=== PATIENT | female | born 1940 | race African-American/Black ===

== ENCOUNTER 2016-08-19 01:53 | Inpatient (IN) | payer MEDICARE ==
[2016-08-19 01:53] VITALS: BMI 29.2
[2016-08-19] MEDS ORDERED: Heparin25000 units/250ml 1/2NS 25,000 UNITS/250 ML BAG IV ONE (02:05)
[2016-08-19] MEDS ORDERED: Iodixanol 320 MG/ML 200 ML BOTTLE IV ONE ×2 (02:16→02:54)
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
[2016-08-19] MEDS ORDERED: Phenylephrine 10 mg/ml Inj ONE (02:31)
[2016-08-19 02:56] LABS: BASO # 0.1 K/uL (0.0-0.2); BASO % 0.8 % (0.0-2.0); EOS # 0.3 K/uL (0.0-0.7); EOS % 1.6 % (0.0-4.0); HEMATOCRIT 31.6 % (34.0-47.0); LYMPH # 6.6 K/uL (1.0-4.3); LYMPH % 39.5 % (20.0-40.0); MEAN CELL VOLUME 82.9 fL (81.0-99.0); MEAN CORPUSCULAR HEMOGLOBIN 25.1 pg (27.0-31.0); MEAN CORPUSCULAR HGB CONC 30.3 g/dL (33.0-37.0); MEAN PLATELET VOLUME 9.2 fL (7.2-11.7); MONO # 0.5 K/uL (0.0-0.8); MONO % 3.2 % (0.0-10.0); NRBC % 0.3 % (0.0-2.0); PLATELET COUNT 141 K/uL (130-400); RED CELL DISTRIBUTION WIDTH 15.9 % (11.5-14.5); WHITE BLOOD COUNT 16.7 K/uL (4.8-10.8)
[2016-08-19 03:03] LABS: POTASSIUM 4.6 mmol/L (3.6-5.2)
[2016-08-19 03:05] LABS: ALB/GLOB RATIO 1.2 (1.0-2.1); BILIRUBIN,TOTAL 0.7 mg/dL (0.2-1.3); TOTAL PROTEIN 6.2 g/dL (6.3-8.3)
[2016-08-19 03:06] LABS: CALCIUM 7.9 mg/dl (8.6-10.4)
[2016-08-19] MEDS ORDERED: Sodium Chloride 0.9% 1,000 ML IV SCH ×2 (03:30→03:43)
--- NOTE | 2016-08-19 03:34 | CP.PCM.CON ---
History of Present Illness - History of Present Illness History of Present Illness: 76yo F. Unknown PMHx, patient was not alert upon arrival to ED. As per ED/EMS patient was in her car to day when she had sudden onset of chest pain. EMS was somehow called and patient was defibrillated in the field. In ED patient underwent a short period of CPR and defibrillation with ROSC. Taken immediately to cleaning laborer, clean coronaries, with EF of 20%, but maintaining her blood pressure. Taken to ICU to initiate hypothermia protocol. Review of Systems - Review of Systems Systems not reviewed;Unavailable: Altered Mental Status, Intubated Past Patient History - Past Social History Smoking Status: Unknown If Ever Smoked - PSYCHIATRIC Hx Substance Use: No Meds Allergies/Adverse Reactions: Allergies Allergy/AdvReac Type Severity Reaction Status Date / Time No Known Allergies Allergy Verified 07/22/14 12:52 - Medications Medications: Current Medications Heparin Sodium (Porcine) (Heparin) 5,000 units SC Q12 KELLI Heparin Sodium/Sodium Chloride (Heparin 78920 Units/250ml 1/2 Normal Saline) 25 ,000 units in 250 mls @ 10 mls/hr IV ONCE ONE Stop: 08/20/16 03:04 Last Admin: 08/19/16 02:56 Dose: 10 mls/hr Amiodarone HCl 900 mg/ (Dextrose) 500 mls @ 33.33 mls/hr IV .Q15H1M ONE; 1 MG/ MIN PRN Reason: Protocol Stop: 08/19/16 18:22 Amiodarone HCl 900 mg/ (Dextrose) 500 mls @ 16.66 mls/hr IV .Q24H ONE; 0.5 MG/ MIN PRN Reason: Protocol Stop: 08/20/16 03:23 Sodium Chloride (Sodium Chloride 0.9%) 1,000 mls @ 50 mls/hr IV .Q20H KELLI Pantoprazole Sodium (Protonix Inj) 40 mg IVP DAILY KELLI Physical Exam - Head Exam Head Exam: ATRAUMATIC, NORMAL INSPECTION, NORMOCEPHALIC - Eye Exam Pupil Exam: Fixed - ENT Exam ENT Exam: Mucous Membranes Dry - Respiratory Exam Respiratory Exam: Clear to Auscultation Bilateral, NORMAL BREATHING PATTERN - Cardiovascular Exam Cardiovascular Exam: REGULAR RHYTHM - GI/Abdominal Exam GI & Abdominal Exam: Distended, Normal Bowel Sounds, Soft. absent: Tenderness - Neurological Exam Additional comments: comatose Results - Vital Signs Recent Vital Signs: Last Vital Signs Temp 98 F 08/19/16 02:00 Pulse 88 08/19/16 02:15 Resp 14 08/19/16 02:15 BP 131/59 L 08/19/16 02:15 Pulse Ox 78 L 08/19/16 02:15 - Labs Result Diagrams: 08/19/16 02:51 08/19/16 02:51 Labs: Laboratory Results - last 24 hr 08/19/16 08/19/16 02:51 02:51 WBC 16.7 H RBC 3.81 Hgb 9.6 L Hct 31.6 L MCV 82.9 MCH 25.1 L MCHC 30.3 L RDW 15.9 H Plt Count 141 MPV 9.2 Neut % (Auto) 54.9 Lymph % (Auto) 39.5 [place] % (Auto) 3.2 Eos % (Auto) 1.6 Baso % (Auto) 0.8 Neut # 9.2 H Lymph # 6.6 H [place] # 0.5 Eos # 0.3 Baso # 0.1 Sodium 136 Potassium 4.6 Chloride 98 Carbon Dioxide 24 Anion Gap 19 BUN 24 H Creatinine 1.6 H Est GFR ( Amer) 38 Est GFR (Non-Af Amer) 31 Random Glucose 175 H Calcium 7.9 L Total Bilirubin 0.7 AST 722 H ALT 778 H Alkaline Phosphatase 76 Total Creatine Kinase 102 CK-MB (Mass) 2.04 Troponin I, Quant 0.0310 Total Protein 6.2 L Albumin 3.4 L Globulin 2.8 Albumin/Globulin Ratio 1.2 Triglycerides 139 Cholesterol 109 LDL Cholesterol Direct 55 HDL Cholesterol 28 L Assessment & Plan (1) Cardiac arrest with ventricular fibrillation Assessment and Plan: 76yo F. Unknown PMHx, p/w with v. fib cardiac arrest, s/p resuscitation with ROSC, s/p cardiac cath with clean coronaries, initiating hypothermia protocol ( 08/19). Neuro: comatose s/p cardiac arrest. Must wait at least 72 hours before doing proper any type of brain function testing. Pulm: acute respiratory failure, on vent. CV: maintaining blood pressure currently. Amiodarone drip for underlying cardiac arrhythmia, as per cardiology - Dr. Guevara. Hem: will monitor for coagulopathy with cooling. Renal: urine output wnl, will monitor for cold diuresis. Electrolyte replacement as per hypothermia protocol GI: NPO for now ID: no acute issues currently. leucocytosis stress reaction. DVT proph - heparin sq GI proph - protonix chaparro for strict I/O's during acute phase of illness Full code Critical Care Time 35 minutes Status: Acute
--- NOTE | 2016-08-19 03:40 | CP.PCM.CON ---
History of Present Illness - History of Present Illness History of Present Illness: Patient s/p Cardiac arrest (V Fib as per ER attending) Cardiac cath: 1. L Main: Patent 2. LAD/Diags: Proximal LAD 20% 3. L Cx: Patent 4. RCA: Dominant artery. Ostial RCA 50% stenosis 5. LV: EF 20%, EDP 32, No AV gradient A/P: Non Ischemic CMP with EF 20% Non Obstructive coronaries Patient intubated, unresponsive ASA 81, Amiodorone drip, DVT/GI prophylaxis Neuro/EP consult Check ECHO D/W ICU attending. Planning for Code freeze All the findings and possible outcome discussed with the family Guarded prognosis Past Patient History - Past Social History Smoking Status: Unknown If Ever Smoked - PSYCHIATRIC Hx Substance Use: No Meds Allergies/Adverse Reactions: Allergies Allergy/AdvReac Type Severity Reaction Status Date / Time No Known Allergies Allergy Verified 07/22/14 12:52 - Medications Medications: Current Medications Heparin Sodium (Porcine) (Heparin) 5,000 units SC Q12 KELLI Heparin Sodium/Sodium Chloride (Heparin 90481 Units/250ml 1/2 Normal Saline) 25 ,000 units in 250 mls @ 10 mls/hr IV ONCE ONE Stop: 08/20/16 03:04 Last Admin: 08/19/16 02:56 Dose: 10 mls/hr Amiodarone HCl 900 mg/ (Dextrose) 500 mls @ 33.33 mls/hr IV .Q15H1M ONE; 1 MG/ MIN PRN Reason: Protocol Stop: 08/19/16 18:22 Amiodarone HCl 900 mg/ (Dextrose) 500 mls @ 16.66 mls/hr IV .Q24H ONE; 0.5 MG/ MIN PRN Reason: Protocol Stop: 08/20/16 03:23 Sodium Chloride (Sodium Chloride 0.9%) 1,000 mls @ 50 mls/hr IV .Q20H KELLI Insulin Human Regular (Novolin R) 0 unit SC ACHS KELLI PRN Reason: Protocol Pantoprazole Sodium (Protonix Inj) 40 mg IVP DAILY [facility] Results - Vital Signs Recent Vital Signs: Last Vital Signs Temp 98 F 08/19/16 02:00 Pulse 88 08/19/16 02:15 Resp 14 08/19/16 02:15 BP 131/59 L 08/19/16 02:15 Pulse Ox 78 L 08/19/16 02:15 - Labs Result Diagrams: 08/19/16 02:51 08/19/16 02:51 Labs: Laboratory Results - last 24 hr 08/19/16 08/19/16 02:51 02:51 WBC 16.7 H RBC 3.81 Hgb 9.6 L Hct 31.6 L MCV 82.9 MCH 25.1 L MCHC 30.3 L RDW 15.9 H Plt Count 141 MPV 9.2 Neut % (Auto) 54.9 Lymph % (Auto) 39.5 [place] % (Auto) 3.2 Eos % (Auto) 1.6 Baso % (Auto) 0.8 Neut # 9.2 H Lymph # 6.6 H [place] # 0.5 Eos # 0.3 Baso # 0.1 Sodium 136 Potassium 4.6 Chloride 98 Carbon Dioxide 24 Anion Gap 19 BUN 24 H Creatinine 1.6 H Est GFR ( Amer) 38 Est GFR (Non-Af Amer) 31 Random Glucose 175 H Calcium 7.9 L Total Bilirubin 0.7 AST 722 H ALT 778 H Alkaline Phosphatase 76 Total Creatine Kinase 102 CK-MB (Mass) 2.04 Troponin I, Quant 0.0310 Total Protein 6.2 L Albumin 3.4 L Globulin 2.8 Albumin/Globulin Ratio 1.2 Triglycerides 139 Cholesterol 109 LDL Cholesterol Direct 55 HDL Cholesterol 28 L
[2016-08-19 04:09] LABS: ABG ALLEN TEST POS; ABG MECHANICAL RATE 14; ATERIAL BLOOD GAS PEEP 5; DRAW SITE RR
[2016-08-19] MEDS: Sodium Chloride 0.9% 1,000 ML IV SCH ×2 (04:17→17:40)
[2016-08-19] MEDS: (Novolog) Insulin Aspart, Recombinant 100 u/ml 10 ml vial SC SCH ×3 (04:23→13:14)
[2016-08-19 04:39] LABS: BASO % 0.1 % (0.0-2.0); EOS # 0.1 K/uL (0.0-0.7); EOS % 0.9 % (0.0-4.0); HEMATOCRIT 31.7 % (34.0-47.0); LYMPH # 2.5 K/uL (1.0-4.3); LYMPH % 15.2 % (20.0-40.0); MEAN CELL VOLUME 82.3 fL (81.0-99.0); MEAN CORPUSCULAR HEMOGLOBIN 25.3 pg (27.0-31.0); MEAN CORPUSCULAR HGB CONC 30.7 g/dL (33.0-37.0); MEAN PLATELET VOLUME 9.1 fL (7.2-11.7); MONO # 0.2 K/uL (0.0-0.8); MONO % 1.1 % (0.0-10.0); NRBC % 0.1 % (0.0-2.0); WHITE BLOOD COUNT 16.3 K/uL (4.8-10.8)
[2016-08-19 04:48] LABS: POTASSIUM 4.8 mmol/L (3.6-5.2)
[2016-08-19 04:50] LABS: BILIRUBIN,TOTAL 0.5 mg/dL (0.2-1.3)
[2016-08-19 04:51] LABS: ALB/GLOB RATIO 1.1 (1.0-2.1); TOTAL PROTEIN 6.2 g/dL (6.3-8.3)
[2016-08-19 04:52] LABS: MAGNESIUM 1.7 mg/dL (1.6-2.3); PHOSPHOROUS 6.8 mg/dL (2.5-4.5)
[2016-08-19 05:02] LABS: INR 1.1
[2016-08-19 05:08] LABS: TROPONIN I 0.124 ng/mL (0.00-0.120)
[2016-08-19 05:24] LABS: THYROID STIMULATING HORMONE 9.62 mIU/L (0.46-4.68)
[2016-08-19 05:31] LABS: BASOPHIL 2 % (0-2); EOSINOPHIL 4 % (0-4); METAMYELOCYTE 5 % (0-0); MYELOCYTE 6 % (0-0); NEUTROPHIL 13 % (50-75); REACTIVE LYMPHOCYTES 11 % (0-0); TOTAL CELLS COUNTED 100
--- NOTE | 2016-08-19 05:39 | CT ---
EXAM: CT Head Without Intravenous Contrast CLINICAL HISTORY: 76 years old, female; Signs and symptoms; Other: Post cardiac; Additional info: Post cardiac arrest code heart code freeze to star TECHNIQUE: Axial computed tomography images of the head/brain without intravenous contrast. This CT exam was performed using one or more of the following dose reduction techniques: automated exposure control, adjustment of the mA and/or kV according to patient size, and/or use of iterative reconstruction technique. EXAM DATE/TIME: 08/19/2016 4:16 AM COMPARISON: No relevant prior studies available. FINDINGS: LIMITATIONS: Retained IV contrast material seen in the intracranial vessels and dural venous sinuses, presumably from a recent study done with IV contrast, such as a cardiac catheterization. This limits evaluation for acute intracranial hemorrhage. BRAIN: Best seen on image 44 of series 4, there is a 3.5 cm wedged-shaped area of low density in the left parietal lobe, involving the cortex and subcortical white matter. This does not appear to be associated with significant intracranial mass effect or hypervascularity, and it has a density mildly higher than the nearby normal CSF spaces. The appearance is most suggestive of a subacute to chronic infarct. Focal areas of low density are seen in the basal ganglia bilaterally, most compatible with bilateral old/chronic lacunar infarcts. Areas of hypodensity seen in the white matter bilaterally, nonspecific in appearance, but most likely representing chronic small vessel ischemic changes, in a patient of this age. No CT findings to suggest an acute, large territorial infarct, however, small or early acute infarcts may not be visible on CT. No evidence of significant intracranial mass effect. VENTRICLES: No evidence of significant hydrocephalus. BONES/JOINTS: No acute fractures or other acute bony abnormality noted. SOFT TISSUES: No acute abnormality of the visualized soft tissues is seen. VASCULATURE: Atherosclerotic calcification. SINUSES: Small fluid level in a right ethmoid sinus, compatible with mild acute sinusitis. No evidence of additional sinus fluid levels. MASTOID AIR CELLS: Mastoid air cells appear clear. TUBES, LINES AND DEVICES: Tube seen in the pharynx. Fluid seen throughout the nasal cavity, which is most likely related to recent tube placement. IMPRESSION: - Limited exam for acute intracranial hemorrhage, due to retained intracranial IV contrast. - Focal hypodense area in the left parietal lobe. This has an appearance suggestive of a small infarct, most likely subacute to chronic rather than acute in nature. Recommend clinical correlation. - See above for remaining findings.
--- NOTE | 2016-08-19 06:53 | CP.PCM.CON ---
Past Patient History - Past Medical History & Family History Past Medical History?: Yes - Past Social History Smoking Status: Unknown If Ever Smoked - CARDIAC Hx Cardia Arrhythmia: Yes Hx Hypercholesterolemia: Yes Hx Hypertension: Yes - NEUROLOGICAL HX Cerebrovascular Accident: Yes - INTEGUMENTARY Hx Haley: Yes - MUSCULOSKELETAL/RHEUMATOLOGICAL Hx Falls: No - GASTROINTESTINAL Hx Gall Bladder Disease: Yes (removed) - PSYCHIATRIC Hx Substance Use: No - SURGICAL HISTORY Other/Comment: bowel obstruction removal - ANESTHESIA Hx Anesthesia: Yes Hx Anesthesia Reactions: No Hx Malignant Hyperthermia: No Has any member of the family had a problem w/ anesthesia?: No Meds Allergies/Adverse Reactions: Allergies Allergy/AdvReac Type Severity Reaction Status Date / Time No Known Allergies Allergy Verified 07/22/14 12:52 - Medications Medications: Current Medications Heparin Sodium (Porcine) (Heparin) 5,000 units SC Q12 KELLI Amiodarone HCl 900 mg/ (Dextrose) 500 mls @ 33.33 mls/hr IV .Q15H1M KELLI; 1 MG/ MIN PRN Reason: Protocol Stop: 08/19/16 09:30 Last Admin: 08/19/16 04:25 Dose: 33.33 mls/hr Amiodarone HCl 900 mg/ (Dextrose) 500 mls @ 16.66 mls/hr IV .Q24H KELLI; 0.5 MG/ MIN PRN Reason: Protocol Stop: 08/20/16 03:30 Sodium Chloride (Sodium Chloride 0.9%) 1,000 mls @ 100 mls/hr IV .Q10H KELLI Last Admin: 08/19/16 04:17 Dose: 100 mls/hr Insulin Aspart (Novolog) 0 unit SC Q6 KELLI PRN Reason: Protocol Last Admin: 08/19/16 04:23 Dose: 2 unit Insulin Human Regular (Novolin R) 0 unit SC ACHS KELLI PRN Reason: Protocol Pantoprazole Sodium (Protonix Inj) 40 mg IVP DAILY KELLI Results - Vital Signs Recent Vital Signs: Last Vital Signs Temp 98 F 08/19/16 02:00 Pulse 58 L 08/19/16 04:25 Resp 14 08/19/16 04:25 BP 140/56 L 08/19/16 04:25 Pulse Ox 100 08/19/16 04:25 - Labs Result Diagrams: 08/19/16 04:35 08/19/16 04:35 Labs: Laboratory Results - last 24 hr 08/19/16 08/19/16 08/19/16 02:51 02:51 03:54 WBC 16.7 H RBC 3.81 Hgb 9.6 L Hct 31.6 L MCV 82.9 MCH 25.1 L MCHC 30.3 L RDW 15.9 H Plt Count 141 MPV 9.2 Neut % (Auto) 54.9 Lymph % (Auto) 39.5 [place] % (Auto) 3.2 Eos % (Auto) 1.6 Baso % (Auto) 0.8 Neut # 9.2 H Lymph # 6.6 H [place] # 0.5 Eos # 0.3 Baso # 0.1 Neutrophils % (Manual) 13 L Band Neutrophils % 29 H* Lymphocytes % (Manual) 26 Reactive Lymphs % 11 H Monocytes % (Manual) 4 Eosinophils % (Manual) 4 Basophils % (Manual) 2 Metamyelocytes % 5 H Myelocytes % 6 H Platelet Estimate Normal PT INR APTT Puncture Site Rr pCO2 46 H pO2 445 H HCO3 26.7 ABG pH 7.39 ABG Total CO2 29.2 H ABG O2 Saturation 99.8 H ABG Base Excess 2.2 Dima Test Pos ABG Potassium 4.8 A-a O2 Difference 211.0 Respiratory Index 0.5 Glucose 223 H Lactate 2.9 H Mechanical Rate 14 FiO2 100.0 Tidal Volume 400 PEEP 5 Sodium 136 134.0 Potassium 4.6 Chloride 98 102.0 Carbon Dioxide 24 Anion Gap 19 BUN 24 H Creatinine 1.6 H Est GFR ( Amer) 38 Est GFR (Non-Af Amer) 31 POC Glucose (mg/dL) Random Glucose 175 H Lactic Acid Calcium 7.9 L Phosphorus Magnesium Total Bilirubin 0.7 AST 722 H ALT 778 H Alkaline Phosphatase 76 Total Creatine Kinase 102 CK-MB (Mass) 2.04 Troponin I Troponin I, Quant 0.0310 Total Protein 6.2 L Albumin 3.4 L Globulin 2.8 Albumin/Globulin Ratio 1.2 Triglycerides 139 Cholesterol 109 LDL Cholesterol Direct 55 HDL Cholesterol 28 L TSH 3rd Generation Arterial Blood Potassium 4.8 Blood Type Antibody Screen 08/19/16 08/19/16 08/19/16 04:21 04:35 04:35 WBC RBC Hgb Hct MCV MCH MCHC RDW Plt Count MPV Neut % (Auto) Lymph % (Auto) [place] % (Auto) Eos % (Auto) Baso % (Auto) Neut # Lymph # [place] # Eos # Baso # Neutrophils % (Manual) Band Neutrophils % Lymphocytes % (Manual) Reactive Lymphs % Monocytes % (Manual) Eosinophils % (Manual) Basophils % (Manual) Metamyelocytes % Myelocytes % Platelet Estimate PT 12.5 H INR 1.1 APTT 133 H* Puncture Site pCO2 pO2 HCO3 ABG pH ABG Total CO2 ABG O2 Saturation ABG Base Excess Dima Test ABG Potassium A-a O2 Difference Respiratory Index Glucose Lactate Mechanical Rate FiO2 Tidal Volume PEEP Sodium 135 Potassium 4.8 Chloride 96 L Carbon Dioxide 25 Anion Gap 19 BUN 27 H Creatinine 1.7 H Est GFR ( Amer) 35 Est GFR (Non-Af Amer) 29 POC Glucose (mg/dL) 218 H Random Glucose 186 H Lactic Acid Calcium 8.0 L Phosphorus Magnesium Total Bilirubin 0.5 AST 693 H ALT 813 H Alkaline Phosphatase 82 Total Creatine Kinase CK-MB (Mass) Troponin I 0.1240 H* Troponin I, Quant Total Protein 6.2 L Albumin 3.2 L Globulin 3.0 Albumin/Globulin Ratio 1.1 Triglycerides 74 D Cholesterol 107 LDL Cholesterol Direct 58 HDL Cholesterol 31 TSH 3rd Generation 9.62 H Arterial Blood Potassium Blood Type Antibody Screen 08/19/16 08/19/16 08/19/16 04:35 04:35 04:35 WBC 16.3 H RBC 3.85 Hgb 9.7 L Hct 31.7 L MCV 82.3 MCH 25.3 L MCHC 30.7 L RDW 16.0 H Plt Count 178 MPV 9.1 Neut % (Auto) 82.7 H Lymph % (Auto) 15.2 L [place] % (Auto) 1.1 Eos % (Auto) 0.9 Baso % (Auto) 0.1 Neut # 13.5 H Lymph # 2.5 [place] # 0.2 Eos # 0.1 Baso # 0.0 Neutrophils % (Manual) Band Neutrophils % Lymphocytes % (Manual) Reactive Lymphs % Monocytes % (Manual) Eosinophils % (Manual) Basophils % (Manual) Metamyelocytes % Myelocytes % Platelet Estimate PT INR APTT Puncture Site pCO2 pO2 HCO3 ABG pH ABG Total CO2 ABG O2 Saturation ABG Base Excess Dima Test ABG Potassium A-a O2 Difference Respiratory Index Glucose Lactate Mechanical Rate FiO2 Tidal Volume PEEP Sodium Potassium Chloride Carbon Dioxide Anion Gap BUN Creatinine Est GFR ( Amer) Est GFR (Non-Af Amer) POC Glucose (mg/dL) Random Glucose Lactic Acid 4.5 H* Calcium Phosphorus 6.8 H Magnesium 1.7 Total Bilirubin AST ALT Alkaline Phosphatase Total Creatine Kinase CK-MB (Mass) Troponin I Troponin I, Quant Total Protein Albumin Globulin Albumin/Globulin Ratio Triglycerides Cholesterol LDL Cholesterol Direct HDL Cholesterol TSH 3rd Generation Arterial Blood Potassium Blood Type Antibody Screen 08/19/16 08/19/16 04:46 06:25 WBC RBC Hgb Hct MCV MCH MCHC RDW Plt Count MPV Neut % (Auto) Lymph % (Auto) [place] % (Auto) Eos % (Auto) Baso % (Auto) Neut # Lymph # [place] # Eos # Baso # Neutrophils % (Manual) Band Neutrophils % Lymphocytes % (Manual) Reactive Lymphs % Monocytes % (Manual) Eosinophils % (Manual) Basophils % (Manual) Metamyelocytes % Myelocytes % Platelet Estimate PT INR APTT Puncture Site pCO2 pO2 HCO3 ABG pH ABG Total CO2 ABG O2 Saturation ABG Base Excess Dima Test ABG Potassium A-a O2 Difference Respiratory Index Glucose Lactate Mechanical Rate FiO2 Tidal Volume PEEP Sodium Potassium Chloride Carbon Dioxide Anion Gap BUN Creatinine Est GFR ( Amer) Est GFR (Non-Af Amer) POC Glucose (mg/dL) 247 H Random Glucose Lactic Acid Calcium Phosphorus Magnesium Total Bilirubin AST ALT Alkaline Phosphatase Total Creatine Kinase CK-MB (Mass) Troponin I Troponin I, Quant Total Protein Albumin Globulin Albumin/Globulin Ratio Triglycerides Cholesterol LDL Cholesterol Direct HDL Cholesterol TSH 3rd Generation Arterial Blood Potassium Blood Type B NEGATIVE Antibody Screen Negative
[2016-08-19] MEDS ORDERED: (Novolin R) Insulin Human Regular 100 units/ml vial SC SCH (07:30)
--- NOTE | 2016-08-19 08:08 | CP.CCUPN ---
CCU Subjective - Physician Review Subjective (Free Text): 08/19/16 14:55 events noted. remains unresponsive. unable to carry out therapeutic hypothermia due to persistent hemorrhage (mouth/nose). involuntary lip smacking and other EPS. Afeb VSS Gen: unresponsive HEENT: SHIRLEY. ETT/NGT Neck: Supple CVS: RRR s1, s2 Resp; rhonchi b/l Abd: soft, nt/nd, bs+ve ext: no edema neuro: unable to assess fully but no response elicited to verbal or noxious stimulus Meds/labs/imaging reviewed independently as noted below. Assessment & Plan (1) Cardiac arrest with ventricular fibrillation Assessment and Plan: 76yo F. Unknown PMHx, p/w with v. fib cardiac arrest, s/p resuscitation with ROSC, s/p cardiac cath with clean coronaries, initiating hypothermia protocol ( 08/19). Neuro: comatose s/p cardiac arrest. hope to regain some neuro function; if not , will discuss the poor prognosis with family. Pulm: cont vent support; follow abg/cxr CV: maintaining blood pressure currently. Amiodarone drip for underlying cardiac arrhythmia, as per cardiology - Dr. Nichols; eventual AICD if pt recovers Hem: transfuse PRBC/Plt etc PRN. Hold SQH Renal: urine output wnl, GI: NPO for now ID: no acute issues currently. leucocytosis stress reaction. DVT proph -SCDs GI proph - protonix chaparro for strict I/O's during acute phase of illness Full code prognosis poor Ulysses Pabon MD CCU Objective - Vital Signs / Intake & Output Vital Signs (Last 4 hours): Vital Signs Pulse Resp BP Pulse Ox 08/19/16 07:20 57 L 14 100 08/19/16 07:10 57 L 13 100 08/19/16 07:00 56 L 14 100 08/19/16 06:50 55 L 14 100 08/19/16 06:40 59 L 14 100 08/19/16 06:30 59 L 14 152/69 H 100 08/19/16 06:20 55 L 14 100 08/19/16 06:10 56 L 14 100 08/19/16 06:00 56 L 14 100 08/19/16 05:50 56 L 14 100 08/19/16 05:40 57 L 14 100 08/19/16 05:30 56 L 14 147/70 100 08/19/16 05:20 56 L 14 100 08/19/16 05:10 56 L 13 147/72 100 08/19/16 05:04 62 20 08/19/16 04:30 59 L 14 100 08/19/16 04:25 58 L 14 140/56 L 100 08/19/16 04:20 60 11 L 100 08/19/16 04:10 59 L 14 100 Intake and Output (Last 8hrs): Intake & Output 08/18/16 08/19/16 08/19/16 22:59 06:59 14:59 Intake Total 200 100 Output Total 35 10 Balance 165 90 Weight 149 lb 14.629 oz Intake: Intake, IV Amount 200 100 Left Antecubital 200 100 Oral 0 0 Output: Urine 35 10 Urethral (Chaparro) 35 10 Emesis 0 Other: Voiding Method Indwelling Catheter # Bowel Movements 0 - Medications Active Medications: Active Medications Generic Name Dose Route Start Last Admin Trade Name Freq PRN Reason Stop Dose Admin Heparin Sodium (Porcine) 5,000 units 08/19/16 10:00 Heparin SC Q12 KELLI Amiodarone HCl 900 mg/ 500 mls @ 33.33 mls/hr 08/19/16 03:30 08/19/16 04:25 Dextrose IV 08/19/16 09:30 33.33 mls/hr .Q15H1M KELLI Administration Protocol 1 MG/MIN Amiodarone HCl 900 mg/ 500 mls @ 16.66 mls/hr 08/19/16 09:30 Dextrose IV 08/20/16 03:30 .Q24H KELLI Protocol 0.5 MG/MIN Sodium Chloride 1,000 mls @ 100 mls/hr 08/19/16 03:53 08/19/16 04:17 Sodium Chloride 0.9% IV 100 mls/hr .Q10H KELLI Administration Insulin Aspart 0 unit 08/19/16 03:45 08/19/16 06:00 Novolog SC 2 unit Q6 KELLI Administration Protocol Insulin Human Regular 0 unit 08/19/16 07:30 08/19/16 07:57 Novolin R SC Not Given ACHS KELLI Protocol Pantoprazole Sodium 40 mg 08/19/16 10:00 Protonix Inj IVP DAILY KELLI - Patient Studies Lab Studies: Lab Studies 08/19/16 08/19/1608/19/17 Range/Units 06:25 04:46 04:35 WBC (4.8-10.8) K/uL RBC (3.80-5.20) Mil/uL Hgb (11.0-16.0) g/dL Hct (34.0-47.0) % MCV (81.0-99.0) fL MCH (27.0-31.0) pg MCHC (33.0-37.0) g/dL RDW (11.5-14.5) % Plt Count (130-400) K/uL MPV (7.2-11.7) fL Neut % (Auto) (50.0-75.0) % Lymph % (Auto) (20.0-40.0) % Travis % (Auto) (0.0-10.0) % Eos % (Auto) (0.0-4.0) % Baso % (Auto) (0.0-2.0) % Neut # (1.8-7.0) K/uL Lymph # (1.0-4.3) K/uL Travis # (0.0-0.8) K/uL Eos # (0.0-0.7) K/uL Baso # (0.0-0.2) K/uL Neutrophils % (Manual) (50-75) % Band Neutrophils % (0-2) % Lymphocytes % (Manual) (20-40) % Reactive Lymphs % (0-0) % Monocytes % (Manual) (0-10) % Eosinophils % (Manual) (0-4) % Basophils % (Manual) (0-2) % Metamyelocytes % (0-0) % Myelocytes % (0-0) % Platelet Estimate (NORMAL) PT (9.7-12.2) SECONDS INR APTT (21-34) SECONDS Puncture Site pCO2 (35-45) mm/Hg pO2 (80-100) mm/Hg HCO3 (21-28) mmol/L ABG pH (7.35-7.45) ABG Total CO2 (22-28) mmol/L ABG O2 Saturation (95-98) % ABG Base Excess (-2.0-3.0) mmol/L Dima Test ABG Potassium (3.6-5.2) mmol/L A-a O2 Difference mm/Hg Respiratory Index Glucose (65-105) mg/dl Lactate (0.7-2.1) mmol/L Mechanical Rate FiO2 % Tidal Volume PEEP Sodium (132-148) mmol/L Potassium (3.6-5.2) mmol/L Chloride (98-107) mmol/L Carbon Dioxide (22-30) mmol/L Anion Gap (10-20) BUN (7-17) mg/dL Creatinine (0.7-1.2) MG/DL Est GFR ( Amer) Est GFR (Non-Af Amer) POC Glucose (mg/dL) 247 H (65-110) mg/dL Random Glucose (65-105) mg/dL Lactic Acid 4.5 H* (0.7-2.1) mmol/L Calcium (8.6-10.4) mg/dl Phosphorus (2.5-4.5) mg/dL Magnesium (1.6-2.3) mg/dL Total Bilirubin (0.2-1.3) mg/dL AST (14-36) U/L ALT (9-52) U/L Alkaline Phosphatase (38-126) U/L Total Creatine Kinase (30-135) U/L CK-MB (Mass) (0.0-3.38) ng/mL Troponin I (0.00-0.120) ng/mL Troponin I, Quant (0.00-0.120) ng/mL Total Protein (6.3-8.3) g/dL Albumin (3.5-5.0) g/dL Globulin (2.2-3.9) gm/dL Albumin/Globulin Ratio (1.0-2.1) Triglycerides (0-149) mg/dL Cholesterol (0-199) mg/dL LDL Cholesterol Direct (0-129) mg/dL HDL Cholesterol (30-70) mg/dL TSH 3rd Generation (0.46-4.68) mIU/L Arterial Blood Potassium (3.6-5.2) mmol/L Blood Type B NEGATIVE Antibody Screen Negative 08/19/16 08/19/16 08/19/16 Range/Units 04:35 04:35 04:35 WBC 16.3 H (4.8-10.8) K/uL RBC 3.85 (3.80-5.20) Mil/uL Hgb 9.7 L (11.0-16.0) g/dL Hct 31.7 L (34.0-47.0) % MCV 82.3 (81.0-99.0) fL MCH 25.3 L (27.0-31.0) pg MCHC 30.7 L (33.0-37.0) g/dL RDW 16.0 H (11.5-14.5) % Plt Count 178 (130-400) K/uL MPV 9.1 (7.2-11.7) fL Neut % (Auto) 82.7 H (50.0-75.0) % Lymph % (Auto) 15.2 L (20.0-40.0) % Travis % (Auto) 1.1 (0.0-10.0) % Eos % (Auto) 0.9 (0.0-4.0) % Baso % (Auto) 0.1 (0.0-2.0) % Neut # 13.5 H (1.8-7.0) K/uL Lymph # 2.5 (1.0-4.3) K/uL Travis # 0.2 (0.0-0.8) K/uL Eos # 0.1 (0.0-0.7) K/uL Baso # 0.0 (0.0-0.2) K/uL Neutrophils % (Manual) (50-75) % Band Neutrophils % (0-2) % Lymphocytes % (Manual) (20-40) % Reactive Lymphs % (0-0) % Monocytes % (Manual) (0-10) % Eosinophils % (Manual) (0-4) % Basophils % (Manual) (0-2) % Metamyelocytes % (0-0) % Myelocytes % (0-0) % Platelet Estimate (NORMAL) PT (9.7-12.2) SECONDS INR APTT (21-34) SECONDS Puncture Site pCO2 (35-45) mm/Hg pO2 (80-100) mm/Hg HCO3 (21-28) mmol/L ABG pH (7.35-7.45) ABG Total CO2 (22-28) mmol/L ABG O2 Saturation (95-98) % ABG Base Excess (-2.0-3.0) mmol/L Dima Test ABG Potassium (3.6-5.2) mmol/L A-a O2 Difference mm/Hg Respiratory Index Glucose (65-105) mg/dl Lactate (0.7-2.1) mmol/L Mechanical Rate FiO2 % Tidal Volume PEEP Sodium 135 (132-148) mmol/L Potassium 4.8 (3.6-5.2) mmol/L Chloride 96 L (98-107) mmol/L Carbon Dioxide 25 (22-30) mmol/L Anion Gap 19 (10-20) BUN 27 H (7-17) mg/dL Creatinine 1.7 H (0.7-1.2) MG/DL Est GFR ( Amer) 35 Est GFR (Non-Af Amer) 29 POC Glucose (mg/dL) (65-110) mg/dL Random Glucose 186 H (65-105) mg/dL Lactic Acid (0.7-2.1) mmol/L Calcium 8.0 L (8.6-10.4) mg/dl Phosphorus 6.8 H (2.5-4.5) mg/dL Magnesium 1.7 (1.6-2.3) mg/dL Total Bilirubin 0.5 (0.2-1.3) mg/dL AST 693 H (14-36) U/L ALT 813 H (9-52) U/L Alkaline Phosphatase 82 (38-126) U/L Total Creatine Kinase (30-135) U/L CK-MB (Mass) (0.0-3.38) ng/mL Troponin I 0.1240 H* (0.00-0.120) ng/mL Troponin I, Quant (0.00-0.120) ng/mL Total Protein 6.2 L (6.3-8.3) g/dL Albumin 3.2 L (3.5-5.0) g/dL Globulin 3.0 (2.2-3.9) gm/dL Albumin/Globulin Ratio 1.1 (1.0-2.1) Triglycerides 74 D (0-149) mg/dL Cholesterol 107 (0-199) mg/dL LDL Cholesterol Direct 58 (0-129) mg/dL HDL Cholesterol 31 (30-70) mg/dL TSH 3rd Generation 9.62 H (0.46-4.68) mIU/L Arterial Blood Potassium (3.6-5.2) mmol/L Blood Type Antibody Screen 08/19/16 08/19/16 08/19/16 Range/Units 04:35 04:21 03:54 WBC (4.8-10.8) K/uL RBC (3.80-5.20) Mil/uL Hgb (11.0-16.0) g/dL Hct (34.0-47.0) % MCV (81.0-99.0) fL MCH (27.0-31.0) pg MCHC (33.0-37.0) g/dL RDW (11.5-14.5) % Plt Count (130-400) K/uL MPV (7.2-11.7) fL Neut % (Auto) (50.0-75.0) % Lymph % (Auto) (20.0-40.0) % Travis % (Auto) (0.0-10.0) % Eos % (Auto) (0.0-4.0) % Baso % (Auto) (0.0-2.0) % Neut # (1.8-7.0) K/uL Lymph # (1.0-4.3) K/uL Travis # (0.0-0.8) K/uL Eos # (0.0-0.7) K/uL Baso # (0.0-0.2) K/uL Neutrophils % (Manual) (50-75) % Band Neutrophils % (0-2) % Lymphocytes % (Manual) (20-40) % Reactive Lymphs % (0-0) % Monocytes % (Manual) (0-10) % Eosinophils % (Manual) (0-4) % Basophils % (Manual) (0-2) % Metamyelocytes % (0-0) % Myelocytes % (0-0) % Platelet Estimate (NORMAL) PT 12.5 H (9.7-12.2) SECONDS INR 1.1 APTT 133 H* (21-34) SECONDS Puncture Site Rr pCO2 46 H (35-45) mm/Hg pO2 445 H (80-100) mm/Hg HCO3 26.7 (21-28) mmol/L ABG pH 7.39 (7.35-7.45) ABG Total CO2 29.2 H (22-28) mmol/L ABG O2 Saturation 99.8 H (95-98) % ABG Base Excess 2.2 (-2.0-3.0) mmol/L Dima Test Pos ABG Potassium 4.8 (3.6-5.2) mmol/L A-a O2 Difference 211.0 mm/Hg Respiratory Index 0.5 Glucose 223 H (65-105) mg/dl Lactate 2.9 H (0.7-2.1) mmol/L Mechanical Rate 14 FiO2 100.0 % Tidal Volume 400 PEEP 5 Sodium 134.0 (132-148) mmol/L Potassium (3.6-5.2) mmol/L Chloride 102.0 (98-107) mmol/L Carbon Dioxide (22-30) mmol/L Anion Gap (10-20) BUN (7-17) mg/dL Creatinine (0.7-1.2) MG/DL Est GFR ( Amer) Est GFR (Non-Af Amer) POC Glucose (mg/dL) 218 H (65-110) mg/dL Random Glucose (65-105) mg/dL Lactic Acid (0.7-2.1) mmol/L Calcium (8.6-10.4) mg/dl Phosphorus (2.5-4.5) mg/dL Magnesium (1.6-2.3) mg/dL Total Bilirubin (0.2-1.3) mg/dL AST (14-36) U/L ALT (9-52) U/L Alkaline Phosphatase (38-126) U/L Total Creatine Kinase (30-135) U/L CK-MB (Mass) (0.0-3.38) ng/mL Troponin I (0.00-0.120) ng/mL Troponin I, Quant (0.00-0.120) ng/mL Total Protein (6.3-8.3) g/dL Albumin (3.5-5.0) g/dL Globulin (2.2-3.9) gm/dL Albumin/Globulin Ratio (1.0-2.1) Triglycerides (0-149) mg/dL Cholesterol (0-199) mg/dL LDL Cholesterol Direct (0-129) mg/dL HDL Cholesterol (30-70) mg/dL TSH 3rd Generation (0.46-4.68) mIU/L Arterial Blood Potassium 4.8 (3.6-5.2) mmol/L Blood Type Antibody Screen 08/19/16 08/19/16 Range/Units 02:51 02:51 WBC 16.7 H (4.8-10.8) K/uL RBC 3.81 (3.80-5.20) Mil/uL Hgb 9.6 L (11.0-16.0) g/dL Hct 31.6 L (34.0-47.0) % MCV 82.9 (81.0-99.0) fL MCH 25.1 L (27.0-31.0) pg MCHC 30.3 L (33.0-37.0) g/dL RDW 15.9 H (11.5-14.5) % Plt Count 141 (130-400) K/uL MPV 9.2 (7.2-11.7) fL Neut % (Auto) 54.9 (50.0-75.0) % Lymph % (Auto) 39.5 (20.0-40.0) % Travis % (Auto) 3.2 (0.0-10.0) % Eos % (Auto) 1.6 (0.0-4.0) % Baso % (Auto) 0.8 (0.0-2.0) % Neut # 9.2 H (1.8-7.0) K/uL Lymph # 6.6 H (1.0-4.3) K/uL Travis # 0.5 (0.0-0.8) K/uL Eos # 0.3 (0.0-0.7) K/uL Baso # 0.1 (0.0-0.2) K/uL Neutrophils % (Manual) 13 L (50-75) % Band Neutrophils % 29 H* (0-2) % Lymphocytes % (Manual) 26 (20-40) % Reactive Lymphs % 11 H (0-0) % Monocytes % (Manual) 4 (0-10) % Eosinophils % (Manual) 4 (0-4) % Basophils % (Manual) 2 (0-2) % Metamyelocytes % 5 H (0-0) % Myelocytes % 6 H (0-0) % Platelet Estimate Normal (NORMAL) PT (9.7-12.2) SECONDS INR APTT (21-34) SECONDS Puncture Site pCO2 (35-45) mm/Hg pO2 (80-100) mm/Hg HCO3 (21-28) mmol/L ABG pH (7.35-7.45) ABG Total CO2 (22-28) mmol/L ABG O2 Saturation (95-98) % ABG Base Excess (-2.0-3.0) mmol/L Dima Test ABG Potassium (3.6-5.2) mmol/L A-a O2 Difference mm/Hg Respiratory Index Glucose (65-105) mg/dl Lactate (0.7-2.1) mmol/L Mechanical Rate FiO2 % Tidal Volume PEEP Sodium 136 (132-148) mmol/L Potassium 4.6 (3.6-5.2) mmol/L Chloride 98 (98-107) mmol/L Carbon Dioxide 24 (22-30) mmol/L Anion Gap 19 (10-20) BUN 24 H (7-17) mg/dL Creatinine 1.6 H (0.7-1.2) MG/DL Est GFR ( Amer) 38 Est GFR (Non-Af Amer) 31 POC Glucose (mg/dL) (65-110) mg/dL Random Glucose 175 H (65-105) mg/dL Lactic Acid (0.7-2.1) mmol/L Calcium 7.9 L (8.6-10.4) mg/dl Phosphorus (2.5-4.5) mg/dL Magnesium (1.6-2.3) mg/dL Total Bilirubin 0.7 (0.2-1.3) mg/dL AST 722 H (14-36) U/L ALT 778 H (9-52) U/L Alkaline Phosphatase 76 (38-126) U/L Total Creatine Kinase 102 (30-135) U/L CK-MB (Mass) 2.04 (0.0-3.38) ng/mL Troponin I (0.00-0.120) ng/mL Troponin I, Quant 0.0310 (0.00-0.120) ng/mL Total Protein 6.2 L (6.3-8.3) g/dL Albumin 3.4 L (3.5-5.0) g/dL Globulin 2.8 (2.2-3.9) gm/dL Albumin/Globulin Ratio 1.2 (1.0-2.1) Triglycerides 139 (0-149) mg/dL Cholesterol 109 (0-199) mg/dL LDL Cholesterol Direct 55 (0-129) mg/dL HDL Cholesterol 28 L (30-70) mg/dL TSH 3rd Generation (0.46-4.68) mIU/L Arterial Blood Potassium (3.6-5.2) mmol/L Blood Type Antibody Screen Laboratory Results - last 24 hr 08/19/16 08/19/16 08/19/16 02:51 02:51 03:54 WBC 16.7 H RBC 3.81 Hgb 9.6 L Hct 31.6 L MCV 82.9 MCH 25.1 L MCHC 30.3 L RDW 15.9 H Plt Count 141 MPV 9.2 Neut % (Auto) 54.9 Lymph % (Auto) 39.5 Travis % (Auto) 3.2 Eos % (Auto) 1.6 Baso % (Auto) 0.8 Neut # 9.2 H Lymph # 6.6 H Travis # 0.5 Eos # 0.3 Baso # 0.1 Neutrophils % (Manual) 13 L Band Neutrophils % 29 H* Lymphocytes % (Manual) 26 Reactive Lymphs % 11 H Monocytes % (Manual) 4 Eosinophils % (Manual) 4 Basophils % (Manual) 2 Metamyelocytes % 5 H Myelocytes % 6 H Platelet Estimate Normal PT INR APTT Puncture Site Rr pCO2 46 H pO2 445 H HCO3 26.7 ABG pH 7.39 ABG Total CO2 29.2 H ABG O2 Saturation 99.8 H ABG Base Excess 2.2 Dima Test Pos ABG Potassium 4.8 A-a O2 Difference 211.0 Respiratory Index 0.5 Glucose 223 H Lactate 2.9 H Mechanical Rate 14 FiO2 100.0 Tidal Volume 400 PEEP 5 Sodium 136 134.0 Potassium 4.6 Chloride 98 102.0 Carbon Dioxide 24 Anion Gap 19 BUN 24 H Creatinine 1.6 H Est GFR ( Amer) 38 Est GFR (Non-Af Amer) 31 POC Glucose (mg/dL) Random Glucose 175 H Lactic Acid Calcium 7.9 L Phosphorus Magnesium Total Bilirubin 0.7 AST 722 H ALT 778 H Alkaline Phosphatase 76 Total Creatine Kinase 102 CK-MB (Mass) 2.04 Troponin I Troponin I, Quant 0.0310 Total Protein 6.2 L Albumin 3.4 L Globulin 2.8 Albumin/Globulin Ratio 1.2 Triglycerides 139 Cholesterol 109 LDL Cholesterol Direct 55 HDL Cholesterol 28 L TSH 3rd Generation Arterial Blood Potassium 4.8 Blood Type Antibody Screen 08/19/16 08/19/16 08/19/16 04:21 04:35 04:35 WBC RBC Hgb Hct MCV MCH MCHC RDW Plt Count MPV Neut % (Auto) Lymph % (Auto) Travis % (Auto) Eos % (Auto) Baso % (Auto) Neut # Lymph # Travis # Eos # Baso # Neutrophils % (Manual) Band Neutrophils % Lymphocytes % (Manual) Reactive Lymphs % Monocytes % (Manual) Eosinophils % (Manual) Basophils % (Manual) Metamyelocytes % Myelocytes % Platelet Estimate PT 12.5 H INR 1.1 APTT 133 H* Puncture Site pCO2 pO2 HCO3 ABG pH ABG Total CO2 ABG O2 Saturation ABG Base Excess Dima Test ABG Potassium A-a O2 Difference Respiratory Index Glucose Lactate Mechanical Rate FiO2 Tidal Volume PEEP Sodium 135 Potassium 4.8 Chloride 96 L Carbon Dioxide 25 Anion Gap 19 BUN 27 H Creatinine 1.7 H Est GFR ( Amer) 35 Est GFR (Non-Af Amer) 29 POC Glucose (mg/dL) 218 H Random Glucose 186 H Lactic Acid Calcium 8.0 L Phosphorus Magnesium Total Bilirubin 0.5 AST 693 H ALT 813 H Alkaline Phosphatase 82 Total Creatine Kinase CK-MB (Mass) Troponin I 0.1240 H* Troponin I, Quant Total Protein 6.2 L Albumin 3.2 L Globulin 3.0 Albumin/Globulin Ratio 1.1 Triglycerides 74 D Cholesterol 107 LDL Cholesterol Direct 58 HDL Cholesterol 31 TSH 3rd Generation 9.62 H Arterial Blood Potassium Blood Type Antibody Screen 08/19/16 08/19/16 08/19/16 04:35 04:35 04:35 WBC 16.3 H RBC 3.85 Hgb 9.7 L Hct 31.7 L MCV 82.3 MCH 25.3 L MCHC 30.7 L RDW 16.0 H Plt Count 178 MPV 9.1 Neut % (Auto) 82.7 H Lymph % (Auto) 15.2 L Travis % (Auto) 1.1 Eos % (Auto) 0.9 Baso % (Auto) 0.1 Neut # 13.5 H Lymph # 2.5 Travis # 0.2 Eos # 0.1 Baso # 0.0 Neutrophils % (Manual) Band Neutrophils % Lymphocytes % (Manual) Reactive Lymphs % Monocytes % (Manual) Eosinophils % (Manual) Basophils % (Manual) Metamyelocytes % Myelocytes % Platelet Estimate PT INR APTT Puncture Site pCO2 pO2 HCO3 ABG pH ABG Total CO2 ABG O2 Saturation ABG Base Excess Dima Test ABG Potassium A-a O2 Difference Respiratory Index Glucose Lactate Mechanical Rate FiO2 Tidal Volume PEEP Sodium Potassium Chloride Carbon Dioxide Anion Gap BUN Creatinine Est GFR ( Amer) Est GFR (Non-Af Amer) POC Glucose (mg/dL) Random Glucose Lactic Acid 4.5 H* Calcium Phosphorus 6.8 H Magnesium 1.7 Total Bilirubin AST ALT Alkaline Phosphatase Total Creatine Kinase CK-MB (Mass) Troponin I Troponin I, Quant Total Protein Albumin Globulin Albumin/Globulin Ratio Triglycerides Cholesterol LDL Cholesterol Direct HDL Cholesterol TSH 3rd Generation Arterial Blood Potassium Blood Type Antibody Screen 08/19/16 08/19/16 04:46 06:25 WBC RBC Hgb Hct MCV MCH MCHC RDW Plt Count MPV Neut % (Auto) Lymph % (Auto) Travis % (Auto) Eos % (Auto) Baso % (Auto) Neut # Lymph # Travis # Eos # Baso # Neutrophils % (Manual) Band Neutrophils % Lymphocytes % (Manual) Reactive Lymphs % Monocytes % (Manual) Eosinophils % (Manual) Basophils % (Manual) Metamyelocytes % Myelocytes % Platelet Estimate PT INR APTT Puncture Site pCO2 pO2 HCO3 ABG pH ABG Total CO2 ABG O2 Saturation ABG Base Excess Dima Test ABG Potassium A-a O2 Difference Respiratory Index Glucose Lactate Mechanical Rate FiO2 Tidal Volume PEEP Sodium Potassium Chloride Carbon Dioxide Anion Gap BUN Creatinine Est GFR ( Amer) Est GFR (Non-Af Amer) POC Glucose (mg/dL) 247 H Random Glucose Lactic Acid Calcium Phosphorus Magnesium Total Bilirubin AST ALT Alkaline Phosphatase Total Creatine Kinase CK-MB (Mass) Troponin I Troponin I, Quant Total Protein Albumin Globulin Albumin/Globulin Ratio Triglycerides Cholesterol LDL Cholesterol Direct HDL Cholesterol TSH 3rd Generation Arterial Blood Potassium Blood Type B NEGATIVE Antibody Screen Negative EKG/Cardiology Studies: Cardiology / EKG Studies 08/19/16 05:00 EKG [ELECTROCARDIOGRAM] Routine Comment: Mode Of Transportation: Reason For Exam: cardiac arrest Fingerstick Blood Sugar Results: 154 Review of Systems - Review of Systems Systems not reviewed;Unavailable: Acuity of Condition
--- NOTE | 2016-08-19 08:41 | RAD ---
HISTORY: Endotracheal tube placement. Supine portable examination 04:54. COMPARISON: No prior. FINDINGS: LUNGS: No active pulmonary disease. PLEURA: No significant pleural effusion identified, no pneumothorax apparent. CARDIOVASCULAR: No radiographic findings to suggest acute or significant cardiovascular disease. OSSEOUS STRUCTURES: No significant abnormalities. VISUALIZED UPPER ABDOMEN: Normal. OTHER FINDINGS: Support apparatus including nasogastric tube coiled in the stomach and endotracheal tube tip 4 cm above the dacia in good position. IMPRESSION: No active disease. Satisfactory position of support apparatus.
--- NOTE | 2016-08-19 08:53 | RAD ---
PROCEDURE: CHEST RADIOGRAPH, 1 VIEW. Semi erect study 02:22. HISTORY: chest pain COMPARISON: None available. FINDINGS: LUNGS: No active pulmonary disease. PLEURA: No pneumothorax or pleural fluid seen. CARDIOVASCULAR: No radiographic findings to suggest acute or significant cardiovascular disease. OSSEOUS STRUCTURES: No significant abnormalities. VISUALIZED UPPER ABDOMEN: Normal. OTHER FINDINGS: Incomplete visualization of the nasogastric tube although it appears to be in the stomach. Low lying endotracheal tube in the right mainstem bronchus. Please note subsequent radiographs confirm repositioning, the tip on the follow-up study was approximately 4 cm above the dacia. IMPRESSION: Low lying endotracheal tube subsequently repositioned. Concordant results with the preliminary interpretation rendered by the emergency department physician procedure.
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
--- NOTE | 2016-08-19 10:43 | CARDCATH ---
PROCEDURE DATE: 08/19/2016 PROCEDURES: 1. Left heart catheterization. 2. Coronary angiogram. CLINICAL INDICATIONS: 1. Cardiac arrest. 2. Hypertension. 3. Respiratory failure, on mechanical ventilation. REFERRING PHYSICIAN: Nick Jacobson MD. PERFORMING PHYSICIAN: Fredi Guevara MD. BRIEF CLINICAL HISTORY: The patient is a 76-year-old female who presented to [facility] Room for cardiac arrest, status post resuscitation. The patient was intubated, unresponsive. Due to cardiac arrest, code heart was activated. Procedure is an emergency, as the family is not available at the time of presentation. Consents were obtained by 2 physicians - one including Dr. Jackson; the second one is from [place]. The patient rec eived aspirin, Brilinta, and IV heparin in the Emergency Room and brought to analytical lab technician for emergency c ardiac catheterization. The patient was prepped and draped in the usual sterile fashion. 2% lidocaine was given in the right groin for local anesthesia. Using micropuncture technique, 6-[place] sheath was introduced into [facility] t common femoral artery. Using the usual diagnostic catheters, left heart catheterization was perfor med. FINDINGS: 1. Left main coronary artery is patent. 2. Proximal LAD has a 30% stenosis. Mid and distal LAD is patent. Diagonal branches are patent. 3. Left circumflex coronary artery is patent. 4. Right coronary artery is dominant. Ostial right coronary artery has a 50% nonobstructive stenosi s. Mid and distal right coronary artery is patent. 5. LV is dilated. Estimated EF is 20%. Global hypokinesis. LVEDP is 35. CONCLUSION: 1. The patient is status post cardiac arrest. 2. Nonobstructive coronaries. 3. Nonischemic cardiomyopathy with EF of 20%. The patient will be transferred to intensive care unit for further management. Fredi Guevara MD cc: [id number] TT: 08/19/2016 10:42:52 jn
[2016-08-19] MEDS: levETIRAcetam 500 MG in Sodium Chloride 0.9% 100 ML IVPB SCH (13:15)
[2016-08-19] MEDS: Metoprolol 1 mg/ml Inj IVP SCH ×2 (14:03→17:41)
[2016-08-19] MEDS ORDERED: Metoprolol 1 mg/ml Inj IVP ONE (16:44)
[2016-08-20] MEDS: (Novolog) Insulin Aspart, Recombinant 100 u/ml 10 ml vial SC SCH ×4 (00:50→18:25)
[2016-08-20] MEDS: levETIRAcetam 500 MG in Sodium Chloride 0.9% 100 ML IVPB SCH ×2 (01:15→14:05)
[2016-08-20 05:42] LABS: ABG ALLEN TEST POS; ABG MECHANICAL RATE 14; ARTERIAL BLOOD HGB O2 SAT 96.3 % (95.0-98.0); ATERIAL BLOOD GAS PEEP 5; CARBOXYHEMOGLOBIN 1.2 % (0.5-1.5); DRAW SITE RR; HHB 0.8 % (0.0-5.0); METHEMOGLOBIN 1.7 % (0.0-3.0)
[2016-08-20] MEDS: Metoprolol 1 mg/ml Inj IVP SCH ×2 (06:28)
[2016-08-20 06:42] LABS: POTASSIUM 3.4 mmol/L (3.6-5.2)
[2016-08-20 06:44] LABS: BILIRUBIN,TOTAL 0.9 mg/dL (0.2-1.3)
[2016-08-20 06:45] LABS: ALB/GLOB RATIO 1.1 (1.0-2.1); CALCIUM 7.8 mg/dl (8.6-10.4); PHOSPHOROUS 3.7 mg/dL (2.5-4.5); TOTAL PROTEIN 6.8 g/dL (6.3-8.3)
[2016-08-20 06:46] LABS: MAGNESIUM 1.4 mg/dL (1.6-2.3)
[2016-08-20 06:50] LABS: BASO % 0.1 % (0.0-2.0); HEMATOCRIT 36.4 % (34.0-47.0); LYMPH # 1.9 K/uL (1.0-4.3); LYMPH % 10.2 % (20.0-40.0); MEAN CELL VOLUME 80.6 fL (81.0-99.0); MEAN CORPUSCULAR HEMOGLOBIN 25.1 pg (27.0-31.0); MEAN CORPUSCULAR HGB CONC 31.2 g/dL (33.0-37.0); MEAN PLATELET VOLUME 9.6 fL (7.2-11.7); MONO # 1.4 K/uL (0.0-0.8); MONO % 7.8 % (0.0-10.0); NRBC % 0.1 % (0.0-2.0); RED CELL DISTRIBUTION WIDTH 15.4 % (11.5-14.5); WHITE BLOOD COUNT 18.5 K/uL (4.8-10.8)
[2016-08-20] MEDS ORDERED: Potassium Chloride 20 mEq/15 ml LIQ UD PO ONE (07:21)
--- NOTE | 2016-08-20 07:33 | CP.CCUPN ---
CCU Subjective - Physician Review Subjective (Free Text): no events overnight. in sinus rhythm. eyes open but otherwise non responsive on vent. Afeb VSS Gen: non responsive. HEENT: SHIRLEY. ETT/OGT Neck: Supple CVS: RRR s1, s2 Resp; rhonchi b/l Abd: soft, nt/nd, bs+ve ext: no edema neuro: open eyes spontaneously. no motor response elicited to verbal or noxious stimulus. flaccid tone. Meds/labs/imaging reviewed independently as noted below. Assessment and Plan: 76yo F. Unknown PMHx, p/w with v. fib cardiac arrest, s/p resuscitation with ROSC, s/p cardiac cath with clean coronaries, initiating hypothermia protocol ( 08/19). Neuro: spontaneous arousal but rpt head ct with evidence of anoxic encephalopathy. await neuro input. Goals of care discussion with family. will involved hospice / palliative care. Pulm: cont vent support; follow abg/cxr CV: maintaining blood pressure currently. Amiodarone drip for underlying cardiac arrhythmia, as per cardiology - Dr. Nichols; eventual AICD if pt recovers Hem: Resume SQH Renal: urine output wnl, GI: Start TF. GI PPX ID: no acute issues currently. leucocytosis stress reaction. DVT proph -SCDs + HSQ GI proph - protonix chaparro for strict I/O's during acute phase of illness Full code prognosis poor given current exam and CTH findings. Ulysses Pabon MD CC time spent 40 min 08/20/16 13:55 CCU Objective - Vital Signs / Intake & Output Vital Signs (Last 4 hours): Vital Signs Pulse Resp BP Pulse Ox 08/20/16 06:50 99 H 20 100 08/20/16 06:40 100 H 19 100 08/20/16 06:30 99 H 17 143/70 100 08/20/16 06:20 98 H 19 100 08/20/16 06:10 99 H 17 100 08/20/16 06:00 99 H 15 100 08/20/16 05:50 101 H 15 99 08/20/16 05:40 99 H 19 100 08/20/16 05:30 100 H 16 149/72 100 08/20/16 05:20 99 H 14 100 08/20/16 05:10 100 H 19 100 05/29/17 05:00 100 H 19 100 08/20/16 04:50 99 H 15 100 08/20/16 04:40 99 H 14 100 08/20/16 04:30 100 H 18 149/73 100 08/20/16 04:20 99 H 21 100 08/20/16 04:10 99 H 16 100 08/20/16 04:00 99 H 17 100 08/20/16 03:50 100 H 17 100 08/20/16 03:40 99 H 15 100 Intake and Output (Last 8hrs): Intake & Output 08/19/16 08/20/16 08/20/16 22:59 06:59 14:59 Intake Total 1233.6 900.2 Output Total 545 500 Balance 688.6 400.2 Weight 152 lb Intake: Intake, IV Amount 1233.6 900.2 Left Antecubital 800 800 rt leg IO 300 y lined to antecubital 133.6 100.2 Oral 0 0 Output: Urine 545 500 Urethral (Chaparro) 545 500 Other: # Bowel Movements 0 0 - Medications Active Medications: Active Medications Generic Name Dose Route Start Last Admin Trade Name Freq PRN Reason Stop Dose Admin Sodium Chloride 1,000 mls @ 100 mls/hr 08/19/16 03:53 08/20/16 00:00 Sodium Chloride 0.9% IV Not Given .Q10H KELLI Levetiracetam 500 mg/ Sodium 105 mls @ 420 mls/hr 08/19/16 13:00 08/20/16 01: 15 Chloride IVPB 420 mls/hr Q12H KELLI Administration Potassium Chloride 20 meq in 100 mls @ 50 mls/hr 08/20/16 07:21 Potassium Chloride 20 Meq/100 Ml IVPB 08/20/16 09:20 ONCE ONE Magnesium Sulfate/Dextrose 1 gm in 100 mls @ 100 mls/hr 08/20/16 08:00 Magnesium Sulfate 1 Gm/100 Ml D5w IVPB 08/20/16 09:59 Q1H KELLI Insulin Aspart 0 unit 08/19/16 03:45 08/20/16 05:29 Novolog SC Not Given Q6 KELLI Protocol Metoprolol Tartrate 5 mg 08/19/16 13:35 08/20/16 06:28 Lopressor IVP 5 mg Q6 KELLI Administration Pantoprazole Sodium 40 mg 08/19/16 10:00 08/19/16 13:14 Protonix Inj IVP 40 mg DAILY KELLI Administration Potassium Chloride 40 meq 08/20/16 07:21 Potassium Chloride Oral Soln PO 08/20/16 07:22 ONCE ONE - Patient Studies Lab Studies: Lab Studies 08/20/16 08/20/16 08/20/16 Range/Units 06:25 06:25 05:34 WBC 18.5 H (4.8-10.8) K/uL RBC 4.52 (3.80-5.20) Mil/uL Hgb 11.3 (11.0-16.0) g/dL Hct 36.4 (34.0-47.0) % MCV 80.6 L (81.0-99.0) fL MCH 25.1 L (27.0-31.0) pg MCHC 31.2 L (33.0-37.0) g/dL RDW 15.4 H (11.5-14.5) % Plt Count 179 (130-400) K/uL MPV 9.6 (7.2-11.7) fL Neut % (Auto) 81.9 H (50.0-75.0) % Lymph % (Auto) 10.2 L (20.0-40.0) % [place] % (Auto) 7.8 (0.0-10.0) % Eos % (Auto) 0.0 (0.0-4.0) % Baso % (Auto) 0.1 (0.0-2.0) % Neut # 15.1 H (1.8-7.0) K/uL Lymph # 1.9 (1.0-4.3) K/uL [place] # 1.4 H (0.0-0.8) K/uL Eos # 0.0 (0.0-0.7) K/uL Baso # 0.0 (0.0-0.2) K/uL Puncture Site Rr pCO2 39 (35-45) mm/Hg pO2 154 H (80-100) mm/Hg HCO3 26.1 (21-28) mmol/L ABG pH 7.43 (7.35-7.45) ABG Total CO2 27.1 (22-28) mmol/L ABG O2 Saturation 99.2 H (95-98) % ABG Base Excess 1.5 (-2.0-3.0) mmol/L ABG Hemoglobin 11.2 L (11.7-17.4) g/dL ABG Carboxyhemoglobin 1.2 (0.5-1.5) % POC ABG HHb (Measured) 0.8 (0.0-5.0) % ABG Methemoglobin 1.7 (0.0-3.0) % Dima Test Pos A-a O2 Difference 225.0 mm/Hg Respiratory Index 1.5 Hgb O2 Saturation 96.3 (95.0-98.0) % Mechanical Rate 14 FiO2 60.0 % Tidal Volume 400 PEEP 5 Sodium 136 (132-148) mmol/L Potassium 3.4 L (3.6-5.2) mmol/L Chloride 100 (98-107) mmol/L Carbon Dioxide 23 (22-30) mmol/L Anion Gap 16 (10-20) BUN 36 H (7-17) mg/dL Creatinine 2.1 H (0.7-1.2) MG/DL Est GFR ( Amer) 28 Est GFR (Non-Af Amer) 23 POC Glucose (mg/dL) (65-110) mg/dL Random Glucose 132 H (65-105) mg/dL Calcium 7.8 L (8.6-10.4) mg/dl Phosphorus 3.7 (2.5-4.5) mg/dL Magnesium 1.4 L (1.6-2.3) mg/dL Total Bilirubin 0.9 (0.2-1.3) mg/dL AST 427 H D (14-36) U/L ALT 550 H D (9-52) U/L Alkaline Phosphatase 65 (38-126) U/L Ammonia (9-33) umol/L Total Protein 6.8 (6.3-8.3) g/dL Albumin 3.6 (3.5-5.0) g/dL Globulin 3.2 (2.2-3.9) gm/dL Albumin/Globulin Ratio 1.1 (1.0-2.1) 08/20/16 08/19/16 08/19/16 Range/Units 05:20 18:11 14:09 WBC (4.8-10.8) K/uL RBC (3.80-5.20) Mil/uL Hgb (11.0-16.0) g/dL Hct (34.0-47.0) % MCV (81.0-99.0) fL MCH (27.0-31.0) pg MCHC (33.0-37.0) g/dL RDW (11.5-14.5) % Plt Count (130-400) K/uL MPV (7.2-11.7) fL Neut % (Auto) (50.0-75.0) % Lymph % (Auto) (20.0-40.0) % [place] % (Auto) (0.0-10.0) % Eos % (Auto) (0.0-4.0) % Baso % (Auto) (0.0-2.0) % Neut # (1.8-7.0) K/uL Lymph # (1.0-4.3) K/uL [place] # (0.0-0.8) K/uL Eos # (0.0-0.7) K/uL Baso # (0.0-0.2) K/uL Puncture Site pCO2 (35-45) mm/Hg pO2 (80-100) mm/Hg HCO3 (21-28) mmol/L ABG pH (7.35-7.45) ABG Total CO2 (22-28) mmol/L ABG O2 Saturation (95-98) % ABG Base Excess (-2.0-3.0) mmol/L ABG Hemoglobin (11.7-17.4) g/dL ABG Carboxyhemoglobin (0.5-1.5) % POC ABG HHb (Measured) (0.0-5.0) % ABG Methemoglobin (0.0-3.0) % Dima Test A-a O2 Difference mm/Hg Respiratory Index Hgb O2 Saturation (95.0-98.0) % Mechanical Rate FiO2 % Tidal Volume PEEP Sodium (132-148) mmol/L Potassium (3.6-5.2) mmol/L Chloride (98-107) mmol/L Carbon Dioxide (22-30) mmol/L Anion Gap (10-20) BUN (7-17) mg/dL Creatinine (0.7-1.2) MG/DL Est GFR ( Amer) Est GFR (Non-Af Amer) POC Glucose (mg/dL) 139 H 174 H (65-110) mg/dL Random Glucose (65-105) mg/dL Calcium (8.6-10.4) mg/dl Phosphorus (2.5-4.5) mg/dL Magnesium (1.6-2.3) mg/dL Total Bilirubin (0.2-1.3) mg/dL AST (14-36) U/L ALT (9-52) U/L Alkaline Phosphatase (38-126) U/L Ammonia 10 (9-33) umol/L Total Protein (6.3-8.3) g/dL Albumin (3.5-5.0) g/dL Globulin (2.2-3.9) gm/dL Albumin/Globulin Ratio (1.0-2.1) // Range/Units 12:36 WBC (4.8-10.8) K/uL RBC (3.80-5.20) Mil/uL Hgb (11.0-16.0) g/dL Hct (34.0-47.0) % MCV (81.0-99.0) fL MCH (27.0-31.0) pg MCHC (33.0-37.0) g/dL RDW (11.5-14.5) % Plt Count (130-400) K/uL MPV (7.2-11.7) fL Neut % (Auto) (50.0-75.0) % Lymph % (Auto) (20.0-40.0) % [place] % (Auto) (0.0-10.0) % Eos % (Auto) (0.0-4.0) % Baso % (Auto) (0.0-2.0) % Neut # (1.8-7.0) K/uL Lymph # (1.0-4.3) K/uL [place] # (0.0-0.8) K/uL Eos # (0.0-0.7) K/uL Baso # (0.0-0.2) K/uL Puncture Site pCO2 (35-45) mm/Hg pO2 (80-100) mm/Hg HCO3 (21-28) mmol/L ABG pH (7.35-7.45) ABG Total CO2 (22-28) mmol/L ABG O2 Saturation (95-98) % ABG Base Excess (-2.0-3.0) mmol/L ABG Hemoglobin (11.7-17.4) g/dL ABG Carboxyhemoglobin (0.5-1.5) % POC ABG HHb (Measured) (0.0-5.0) % ABG Methemoglobin (0.0-3.0) % Dima Test A-a O2 Difference mm/Hg Respiratory Index Hgb O2 Saturation (95.0-98.0) % Mechanical Rate FiO2 % Tidal Volume PEEP Sodium (132-148) mmol/L Potassium (3.6-5.2) mmol/L Chloride (98-107) mmol/L Carbon Dioxide (22-30) mmol/L Anion Gap (10-20) BUN (7-17) mg/dL Creatinine (0.7-1.2) MG/DL Est GFR ( Amer) Est GFR (Non-Af Amer) POC Glucose (mg/dL) 215 H (65-110) mg/dL Random Glucose (65-105) mg/dL Calcium (8.6-10.4) mg/dl Phosphorus (2.5-4.5) mg/dL Magnesium (1.6-2.3) mg/dL Total Bilirubin (0.2-1.3) mg/dL AST (14-36) U/L ALT (9-52) U/L Alkaline Phosphatase (38-126) U/L Ammonia (9-33) umol/L Total Protein (6.3-8.3) g/dL Albumin (3.5-5.0) g/dL Globulin (2.2-3.9) gm/dL Albumin/Globulin Ratio (1.0-2.1) Laboratory Results - last 24 hr 08/19/16 08/19/16 08/19/16 12:36 14:09 18:11 WBC RBC Hgb Hct MCV MCH MCHC RDW Plt Count MPV Neut % (Auto) Lymph % (Auto) [place] % (Auto) Eos % (Auto) Baso % (Auto) Neut # Lymph # [place] # Eos # Baso # Puncture Site pCO2 pO2 HCO3 ABG pH ABG Total CO2 ABG O2 Saturation ABG Base Excess ABG Hemoglobin ABG Carboxyhemoglobin POC ABG HHb (Measured) ABG Methemoglobin Dima Test A-a O2 Difference Respiratory Index Hgb O2 Saturation Mechanical Rate FiO2 Tidal Volume PEEP Sodium Potassium Chloride Carbon Dioxide Anion Gap BUN Creatinine Est GFR ( Amer) Est GFR (Non-Af Amer) POC Glucose (mg/dL) 215 H 174 H Random Glucose Calcium Phosphorus Magnesium Total Bilirubin AST ALT Alkaline Phosphatase Ammonia 10 Total Protein Albumin Globulin Albumin/Globulin Ratio 08/20/16 08/20/16 08/20/16 05:20 05:34 06:25 WBC 18.5 H RBC 4.52 Hgb 11.3 Hct 36.4 MCV 80.6 L MCH 25.1 L MCHC 31.2 L RDW 15.4 H Plt Count 179 MPV 9.6 Neut % (Auto) 81.9 H Lymph % (Auto) 10.2 L [place] % (Auto) 7.8 Eos % (Auto) 0.0 Baso % (Auto) 0.1 Neut # 15.1 H Lymph # 1.9 [place] # 1.4 H Eos # 0.0 Baso # 0.0 Puncture Site Rr pCO2 39 pO2 154 H HCO3 26.1 ABG pH 7.43 ABG Total CO2 27.1 ABG O2 Saturation 99.2 H ABG Base Excess 1.5 ABG Hemoglobin 11.2 L ABG Carboxyhemoglobin 1.2 POC ABG HHb (Measured) 0.8 ABG Methemoglobin 1.7 Dima Test Pos A-a O2 Difference 225.0 Respiratory Index 1.5 Hgb O2 Saturation 96.3 Mechanical Rate 14 FiO2 60.0 Tidal Volume 400 PEEP 5 Sodium Potassium Chloride Carbon Dioxide Anion Gap BUN Creatinine Est GFR ( Amer) Est GFR (Non-Af Amer) POC Glucose (mg/dL) 139 H Random Glucose Calcium Phosphorus Magnesium Total Bilirubin AST ALT Alkaline Phosphatase Ammonia Total Protein Albumin Globulin Albumin/Globulin Ratio 08/20/16 06:25 WBC RBC Hgb Hct MCV MCH MCHC RDW Plt Count MPV Neut % (Auto) Lymph % (Auto) [place] % (Auto) Eos % (Auto) Baso % (Auto) Neut # Lymph # [place] # Eos # Baso # Puncture Site pCO2 pO2 HCO3 ABG pH ABG Total CO2 ABG O2 Saturation ABG Base Excess ABG Hemoglobin ABG Carboxyhemoglobin POC ABG HHb (Measured) ABG Methemoglobin Dima Test A-a O2 Difference Respiratory Index Hgb O2 Saturation Mechanical Rate FiO2 Tidal Volume PEEP Sodium 136 Potassium 3.4 L Chloride 100 Carbon Dioxide 23 Anion Gap 16 BUN 36 H Creatinine 2.1 H Est GFR ( Amer) 28 Est GFR (Non-Af Amer) 23 POC Glucose (mg/dL) Random Glucose 132 H Calcium 7.8 L Phosphorus 3.7 Magnesium 1.4 L Total Bilirubin 0.9 AST 427 H D ALT 550 H D Alkaline Phosphatase 65 Ammonia Total Protein 6.8 Albumin 3.6 Globulin 3.2 Albumin/Globulin Ratio 1.1 Fingerstick Blood Sugar Results: 154 Review of Systems - Review of Systems Systems not reviewed;Unavailable: Acuity of Condition
--- NOTE | 2016-08-20 07:56 | CP.PCM.PN ---
Subjective - Date & Time of Evaluation Date of Evaluation: 08/20/16 Time of Evaluation: 07:20 Objective - Vital Signs/Intake and Output Vital Signs (last 24 hours): Temp Pulse Resp BP Pulse Ox 97.5 F L 99 H 20 143/70 100 08/19/16 16:00 08/20/16 06:50 08/20/16 06:50 08/20/16 06:30 08/20/16 06:50 Intake and Output: 08/20/16 08/20/16 06:59 18:59 Intake Total 1367.0 Output Total 800 Balance 567.0 - Medications Medications: Current Medications Sodium Chloride (Sodium Chloride 0.9%) 1,000 mls @ 100 mls/hr IV .Q10H [facility] Last Admin: 08/20/16 00:00 Dose: Not Given Levetiracetam 500 mg/ Sodium (Chloride) 105 mls @ 420 mls/hr IVPB Q12H [facility] Last Admin: 08/20/16 01:15 Dose: 420 mls/hr Potassium Chloride (Potassium Chloride 20 Meq/100 Ml) 20 meq in 100 mls @ 50 mls/hr IVPB ONCE ONE Stop: 08/20/16 09:20 Magnesium Sulfate/Dextrose (Magnesium Sulfate 1 Gm/100 Ml D5w) 1 gm in 100 mls @ 100 mls/hr IVPB Q1H [facility] Stop: 08/20/16 09:59 Insulin Aspart (Novolog) 0 unit SC Q6 [facility] PRN Reason: Protocol Last Admin: 08/20/16 05:29 Dose: Not Given Metoprolol Tartrate (Lopressor) 5 mg IVP Q6 [facility] Last Admin: 08/20/16 06:28 Dose: 5 mg Pantoprazole Sodium (Protonix Inj) 40 mg IVP DAILY [facility] Last Admin: 08/19/16 13:14 Dose: 40 mg - Labs Labs: 08/20/16 06:25 08/20/16 06:25 PT 12.5 SECONDS (9.7-12.2) H 08/19/16 04:35 INR 1.1 08/19/16 04:35 APTT 133 SECONDS (21-34) H* 08/19/16 04:35 Assessment and Plan (1) Cardiac arrest with ventricular fibrillation Assessment & Plan: Pt responding to name by opening eyes. Will evaluate neurological status. If recovers will need ICD for secondary prophylaxis Status: Acute
[2016-08-20] MEDS: Magnesium Sulfate 1 gm in D5W 1 GM/100 ML BAG IVPB SCH ×2 (08:00→08:30)
--- NOTE | 2016-08-20 10:22 | CT ---
PROCEDURE: CT HEAD WITHOUT CONTRAST. HISTORY: SCHEDULE ON 08/20/2016 Status post cardiac arrest COMPARISON: August 19, 2016. TECHNIQUE: Axial computed tomography images were obtained through the head/brain without intravenous contrast. Radiation dose: Total exam DLP = 1054.00 mGy-cm. This CT exam was performed using one or more of the following dose reduction techniques: Automated exposure control, adjustment of the mA and/or kV according to patient size, and/or use of iterative reconstruction technique. FINDINGS: HEMORRHAGE: No intracranial hemorrhage. BRAIN: Punctate areas of diminished attenuation internal capsule, right the lambdoid region. Diffuse cerebral edema loss of delcid white matter differentiation, cortical sulcal effacement. VENTRICLES: No evidence of intraventricular hemorrhage. Stable appearance, configuration lateral ventricles, basilar cisterns. CALVARIUM: Unremarkable. PARANASAL SINUSES: Unremarkable as visualized. No significant inflammatory changes. MASTOID AIR CELLS: Unremarkable as visualized. No inflammatory changes. OTHER FINDINGS: None. IMPRESSION: Diffuse brain edema, small areas of deep white matter infarction. No acute hemorrhage. Findings are consistent with anoxic encephalopathy.
--- NOTE | 2016-08-20 11:17 | RAD ---
HISTORY: Intubated. Portable study 08:03. COMPARISON: August 19, 2016. FINDINGS: LUNGS: No active pulmonary disease. PLEURA: No significant pleural effusion identified, no pneumothorax apparent. CARDIOVASCULAR: No significant interval change compared to the prior examination(s). OSSEOUS STRUCTURES: No significant abnormalities. VISUALIZED UPPER ABDOMEN: Normal. OTHER FINDINGS: Stable position of endotracheal tube and nasogastric tube. IMPRESSION: No significant interval change compared to the prior examination(s).
--- NOTE | 2016-08-20 13:59 | CP.PCM.PN ---
Subjective - Date & Time of Evaluation Date of Evaluation: 08/20/16 Time of Evaluation: 13:40 - Subjective Subjective: Patient remains intubated. Multiple family members are at the bedside. Objective - Vital Signs/Intake and Output Vital Signs (last 24 hours): Temp Pulse Resp BP Pulse Ox 97.5 F L 99 H 20 143/70 100 08/19/16 16:00 08/20/16 06:50 08/20/16 06:50 08/20/16 06:30 08/20/16 06:50 Intake and Output: 08/20/16 08/20/16 06:59 18:59 Intake Total 1367.0 Output Total 800 Balance 567.0 - Medications Medications: Current Medications Sodium Chloride (Sodium Chloride 0.9%) 1,000 mls @ 100 mls/hr IV .Q10H [facility] Last Admin: 08/20/16 00:00 Dose: Not Given Levetiracetam 500 mg/ Sodium (Chloride) 105 mls @ 420 mls/hr IVPB Q12H [facility] Last Admin: 08/20/16 01:15 Dose: 420 mls/hr Insulin Aspart (Novolog) 0 unit SC Q6 [facility] PRN Reason: Protocol Last Admin: 08/20/16 05:29 Dose: Not Given Metoprolol Tartrate (Lopressor) 5 mg IVP Q6 [facility] Last Admin: 08/20/16 06:28 Dose: 5 mg Pantoprazole Sodium (Protonix Inj) 40 mg IVP DAILY [facility] Last Admin: 08/20/16 10:20 Dose: 40 mg - Labs Labs: 08/20/16 06:25 08/20/16 06:25 PT 12.5 SECONDS (9.7-12.2) H 08/19/16 04:35 INR 1.1 08/19/16 04:35 APTT 133 SECONDS (21-34) H* 08/19/16 04:35 - Constitutional Appears: Non-toxic - Head Exam Head Exam: NORMAL INSPECTION - Eye Exam Eye Exam: Normal appearance - ENT Exam ENT Exam: Mucous Membranes Moist - Neck Exam Neck Exam: absent: Thyromegaly - Respiratory Exam Respiratory Exam: Decreased Breath Sounds - Cardiovascular Exam Cardiovascular Exam: REGULAR RHYTHM - GI/Abdominal Exam GI & Abdominal Exam: Normal Bowel Sounds - Rectal Exam Rectal Exam: Deferred - Extremities Exam Extremities Exam: Pedal Edema - Skin Skin Exam: Normal Color Assessment and Plan (1) Cardiac arrest with ventricular fibrillation Assessment & Plan: no events on the monitor. assess for neurological recovery before determining if patient is candidate for AICD Status: Acute (2) HTN (hypertension) Assessment & Plan: controlled Status: Acute (3) CVA (cerebral vascular accident) Assessment & Plan: neuro eval. CT head suggest diffuse cerebral edema Status: Acute (4) Hypercholesterolemia Assessment & Plan: statin therapy Status: Acute
[2016-08-20] MEDS: Sodium Chloride 0.9% 1,000 ML IV SCH ×4 (14:06→22:07)
[2016-08-21] MEDS: Acetaminophen 650mg/20.3ml solution UD NG PRN ×3 (00:37→21:25)
[2016-08-21] MEDS: levETIRAcetam 500 MG in Sodium Chloride 0.9% 100 ML IVPB SCH ×2 (01:00→12:15)
[2016-08-21 05:30] LABS: ABG ALLEN TEST POS; ABG MECHANICAL RATE 14; ATERIAL BLOOD GAS PEEP 5; CARBOXYHEMOGLOBIN 1.2 % (0.5-1.5); DRAW SITE RR; HHB 0.5 % (0.0-5.0); METHEMOGLOBIN 1.3 % (0.0-3.0)
[2016-08-21] MEDS: (Novolog) Insulin Aspart, Recombinant 100 u/ml 10 ml vial SC SCH ×5 (06:00→18:22)
[2016-08-21] MEDS: Sodium Chloride 0.9% 1,000 ML IV SCH ×4 (06:30→20:00)
[2016-08-21 06:41] LABS: BASO # 0.1 K/uL (0.0-0.2); BASO % 0.4 % (0.0-2.0); LYMPH # 2.1 K/uL (1.0-4.3); LYMPH % 11.6 % (20.0-40.0); MEAN CELL VOLUME 79.3 fL (81.0-99.0); MEAN CORPUSCULAR HEMOGLOBIN 25.3 pg (27.0-31.0); MEAN CORPUSCULAR HGB CONC 31.9 g/dL (33.0-37.0); MEAN PLATELET VOLUME 10.2 fL (7.2-11.7); MONO # 2.1 K/uL (0.0-0.8); MONO % 11.7 % (0.0-10.0); NRBC % 0.2 % (0.0-2.0); RED CELL DISTRIBUTION WIDTH 15.9 % (11.5-14.5); WHITE BLOOD COUNT 17.7 K/uL (4.8-10.8)
[2016-08-21 07:15] LABS: BILIRUBIN,TOTAL 1.1 mg/dL (0.2-1.3); TOTAL PROTEIN 6.5 g/dL (6.3-8.3)
[2016-08-21 07:16] LABS: CALCIUM 7.9 mg/dl (8.6-10.4); MAGNESIUM 2.1 mg/dL (1.6-2.3); PHOSPHOROUS 1.2 mg/dL (2.5-4.5)
--- NOTE | 2016-08-21 07:28 | PN ---
DATE: 08/20/2016 The patient is still intubated on the ventilator. Supportive care repeat CAT scan edema. PLAN: Neurology evaluation. Discussed with family in detail, aware of the condition. Nick Jacobson MD cc: [id number] TT: 08/20/2016 15:27:46 Confirmation # [id number] Dictation # [id number] en
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
--- NOTE | 2016-08-21 07:43 | PN ---
DATE: 08/21/2016 NEUROLOGICAL PROBLEM: Post anoxic encephalopathy with epilepsia partialis continua. PHYSICAL EXAMINATION: VITAL SIGNS: Blood pressure 167/82, mean arterial pressure of 103, respiration 34 with a vent. Puls e rate 115, sinus tachycardia. NEUROLOGIC: The patient is still comatose. His facial twitching has all stopped with the Keppra. E yes are partially open. No corneal reflex. Pupils are sluggishly reactive to light. No oculocephal ic reflex noted. Some lingual movement noted. Dense quadriplegic. Plantars are upgoing on both ilene es. Repeat CT scan of the brain been reviewed by me, showed diffuse edema, more pronounced in parietoocci pital region, effacement of sulci with differentiation of white and delcid matter has been not distingu ished. This is all consistent with diffuse cerebral edema. The patient is scheduled to have electroencephalogram and Doppler studies to assess her cerebral bloo d flow as well as the physiological activities of the brain. The patient attained irreversible insult to the brain. From prognosis which is dismal prognosis at p resent. The patient's condition been well discussed with the family members during my earlier visit. Dima Santos MD cc: [id number] TT: 08/21/2016 07:43:17 Confirmation # [id number] Dictation # [id number] en
--- NOTE | 2016-08-21 08:29 | RAD ---
HISTORY: Follow-up. Technique: Single view portable semi erect @ 07:18. COMPARISON: No prior. FINDINGS: LUNGS: No active pulmonary disease. PLEURA: No significant pleural effusion identified, no pneumothorax apparent. CARDIOVASCULAR: No radiographic findings to suggest acute or significant cardiovascular disease. OSSEOUS STRUCTURES: No significant abnormalities. VISUALIZED UPPER ABDOMEN: Normal. OTHER FINDINGS: Stable, satisfactory position ventilatory, and nasogastric apparatus. IMPRESSION: No significant interval change compared to the prior examination(s).
[2016-08-21] MEDS ORDERED: Sodium Chloride 0.9% 1,000 ML IV ONE (09:30)
[2016-08-21] MEDS ORDERED: Pantoprazole 40 mg Susp UD GT SCH (10:00)
[2016-08-21] MEDS ORDERED: Sodium Phosphate 15 MMOLE in Sodium Chloride 0.9% 250 ML IVPB ONE (10:00)
[2016-08-21 10:37] LABS: URINE BILIRUBIN NEGATIVE (NEGATIVE); URINE BLOOD 3+ (NEGATIVE); URINE GLUCOSE (UA) NORMAL (Normal); URINE KETONE NEGATIVE (NEGATIVE); URINE LEUKOCYTE ESTERASE 3+ Leu/uL (Negative); URINE PROTEIN 2+ mg/dL (NEGATIVE); URINE UROBILINOGEN NORMAL mg/dL (0.2-1.0)
[2016-08-21] MEDS: Cefepime IV 1 gm in Dextrose 1 GM/50 ML BAG IVPB SCH ×2 (12:15→23:00)
[2016-08-21 12:24] LABS: URINE COLOR YELLOW (YELLOW)
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
--- NOTE | 2016-08-21 12:36 | CP.CCUPN ---
<Julian Estrada - Last Filed: 08/21/16 12:55> CCU Subjective - Physician Review Subjective (Free Text): 08/21/16 12:34 PGY-1 ICU progress note Pt seen and examined at bedside. Intubated. No overnight events. Critical Care Time Spent (in minutes): 35 CCU Objective - Vital Signs / Intake & Output Vital Signs (Last 4 hours): Vital Signs Temp Pulse Resp BP Pulse Ox 08/21/16 11:31 113 H 29 H 121/64 100 08/21/16 10:36 116 H 29 H 140/75 100 08/21/16 10:00 101.9 F H 08/21/16 09:47 101.9 F H 08/21/16 09:30 118 H 35 H 140/66 100 08/21/16 09:00 111 H 29 H 100 08/21/16 08:47 102.6 F H Intake and Output (Last 8hrs): Intake & Output 08/20/16 08/21/16 08/21/16 22:59 06:59 14:59 Intake Total 1010 1100 1620 Output Total 330 315 70 Balance 698 942 5139 Weight 153 lb 0.2 oz Intake: Intake, IV Amount 361 512 8327 Left Antecubital 516 773 7027 y lined to antecubital 100 Tube Feeding 210 240 60 Other 60 60 Output: Urine 330 315 70 Urethral (Wyman) 330 315 70 Stool 0 - Physical Exam Head: Positive for: Atraumatic, Normocephalic Pupils: Positive for: PERRL Mouth: Positive for: Other (dark secretions around mouth) Respiratory/Chest: Positive for: Good Air Exchange, Rhonchi, Other (intubated) Cardiovascular: Positive for: Normal S1, S2 Abdomen: Positive for: Normal Bowel Sounds. Negative for: Distention Upper Extremity: Positive for: NORMAL PULSES Lower Extremity: Positive for: NORMAL PULSES Neurological: Positive for: Other (intubated, unresponsive) Skin: Positive for: Warm, Dry Psychiatric: Positive for: Other (unresponsive) - Medications Active Medications: Active Medications Generic Name Dose Route Start Last Admin Trade Name Freq PRN Reason Stop Dose Admin Acetaminophen 650 mg 08/21/16 00:14 08/21/16 08:47 Tylenol 650mg/20.3ml Solution Ud NG 650 mg Q6 PRN Administration for temp.,101 and above Sodium Chloride 1,000 mls @ 100 mls/hr 08/19/16 03:53 08/21/16 09:00 Sodium Chloride 0.9% IV 100 mls/hr .Q10H KELLI Administration Levetiracetam 500 mg/ Sodium 105 mls @ 420 mls/hr 08/19/16 13:00 08/21/16 12: 15 Chloride IVPB 420 mls/hr Q12H KELLI Administration Cefepime HCl 1 gm in 50 mls @ 100 mls/hr 08/21/16 12:00 08/21/16 12:15 Maxipime Iv 1 Gm Premix IVPB 100 mls/hr Q12H KELLI Administration Sodium Phosphate 15 mmole/ 255 mls @ 50 mls/hr 08/21/16 10:00 08/21/16 10:16 Sodium Chloride IVPB 08/21/16 15:05 50 mls/hr .Q5H6M ONE Administration Insulin Aspart 0 unit 08/19/16 03:45 08/21/16 12:09 Novolog SC Not Given Q6 [facility] Protocol Metoprolol Tartrate 50 mg 08/20/16 18:00 08/21/16 12:16 Lopressor GT Not Given BID [facility] Pantoprazole Sodium 40 mg 08/21/16 10:00 08/21/16 10:17 Protonix Inj IVP 40 mg DAILY KELLI Administration - Patient Studies Lab Studies: Microbiology Studies 08/19/16 03:50 MRSA Culture (Admit) - Final Nose MRSA NOT DETECTED Lab Studies 08/21/16 08/21/16 08/21/16 Range/Units 11:50 10:05 06:30 WBC (4.8-10.8) K/uL RBC (3.80-5.20) Mil/uL Hgb (11.0-16.0) g/dL Hct (34.0-47.0) % MCV (81.0-99.0) fL MCH (27.0-31.0) pg MCHC (33.0-37.0) g/dL RDW (11.5-14.5) % Plt Count (130-400) K/uL MPV (7.2-11.7) fL Neut % (Auto) (50.0-75.0) % Lymph % (Auto) (20.0-40.0) % [place] % (Auto) (0.0-10.0) % Eos % (Auto) (0.0-4.0) % Baso % (Auto) (0.0-2.0) % Neut # (1.8-7.0) K/uL Lymph # (1.0-4.3) K/uL [place] # (0.0-0.8) K/uL Eos # (0.0-0.7) K/uL Baso # (0.0-0.2) K/uL Puncture Site pCO2 (35-45) mm/Hg pO2 (80-100) mm/Hg HCO3 (21-28) mmol/L ABG pH (7.35-7.45) ABG Total CO2 (22-28) mmol/L ABG O2 Saturation (95-98) % ABG Base Excess (-2.0-3.0) mmol/L ABG Hemoglobin (11.7-17.4) g/dL ABG Carboxyhemoglobin (0.5-1.5) % POC ABG HHb (Measured) (0.0-5.0) % ABG Methemoglobin (0.0-3.0) % Dima Test A-a O2 Difference mm/Hg Respiratory Index Hgb O2 Saturation (95.0-98.0) % Mechanical Rate FiO2 % Tidal Volume PEEP Sodium 140 (132-148) mmol/L Potassium 4.0 (3.6-5.2) mmol/L Chloride 109 H (98-107) mmol/L Carbon Dioxide 20 L (22-30) mmol/L Anion Gap 15 (10-20) BUN 56 H (7-17) mg/dL Creatinine 3.2 H (0.7-1.2) MG/DL Est GFR ( Amer) 17 Est GFR (Non-Af Amer) 14 POC Glucose (mg/dL) 148 H (65-110) mg/dL Random Glucose 164 H (65-105) mg/dL Calcium 7.9 L (8.6-10.4) mg/dl Phosphorus 1.2 L (2.5-4.5) mg/dL Magnesium 2.1 (1.6-2.3) mg/dL Total Bilirubin 1.1 (0.2-1.3) mg/dL AST 264 H D (14-36) U/L ALT 308 H D (9-52) U/L Alkaline Phosphatase 57 (38-126) U/L Total Protein 6.5 (6.3-8.3) g/dL Albumin 3.2 L (3.5-5.0) g/dL Globulin 3.3 (2.2-3.9) gm/dL Albumin/Globulin Ratio 1.0 (1.0-2.1) Urine Color Yellow (YELLOW) Urine Clarity Turbid (Clear) Urine pH 5.0 (5.0-8.0) Ur Specific [place] 1.024 (1.003-1.030) Urine Protein 2+ H (NEGATIVE) mg/dL Urine Glucose (UA) Normal (Normal) mg/dL Urine Ketones Negative (NEGATIVE) mg/dL Urine Blood 3+ H (NEGATIVE) Urine Nitrate Negative (NEGATIVE) Urine Bilirubin Negative (NEGATIVE) Urine Urobilinogen Normal (0.2-1.0) mg/dL Ur Leukocyte Esterase 3+ H (Negative) Shawn/uL 08/21/16 08/21/16 08/21/16 Range/Units 06:30 05:46 05:20 WBC 17.7 H (4.8-10.8) K/uL RBC 4.16 (3.80-5.20) Mil/uL Hgb 10.5 L (11.0-16.0) g/dL Hct 33.0 L (34.0-47.0) % MCV 79.3 L (81.0-99.0) fL MCH 25.3 L (27.0-31.0) pg MCHC 31.9 L (33.0-37.0) g/dL RDW 15.9 H (11.5-14.5) % Plt Count 176 (130-400) K/uL MPV 10.2 (7.2-11.7) fL Neut % (Auto) 76.3 H (50.0-75.0) % Lymph % (Auto) 11.6 L (20.0-40.0) % [place] % (Auto) 11.7 H (0.0-10.0) % Eos % (Auto) 0.0 (0.0-4.0) % Baso % (Auto) 0.4 (0.0-2.0) % Neut # 13.5 H (1.8-7.0) K/uL Lymph # 2.1 (1.0-4.3) K/uL [place] # 2.1 H (0.0-0.8) K/uL Eos # 0.0 (0.0-0.7) K/uL Baso # 0.1 (0.0-0.2) K/uL Puncture Site Rr pCO2 22 L (35-45) mm/Hg pO2 154 H (80-100) mm/Hg HCO3 24.9 (21-28) mmol/L ABG pH 7.58 H (7.35-7.45) ABG Total CO2 21.3 L (22-28) mmol/L ABG O2 Saturation 99.5 H (95-98) % ABG Base Excess -0.1 (-2.0-3.0) mmol/L ABG Hemoglobin 10.5 L (11.7-17.4) g/dL ABG Carboxyhemoglobin 1.2 (0.5-1.5) % POC ABG HHb (Measured) 0.5 (0.0-5.0) % ABG Methemoglobin 1.3 (0.0-3.0) % Dima Test Pos A-a O2 Difference 104.0 mm/Hg Respiratory Index 0.7 Hgb O2 Saturation 97.0 (95.0-98.0) % Mechanical Rate 14 FiO2 40.0 % Tidal Volume 400 PEEP 5 Sodium (132-148) mmol/L Potassium (3.6-5.2) mmol/L Chloride (98-107) mmol/L Carbon Dioxide (22-30) mmol/L Anion Gap (10-20) BUN (7-17) mg/dL Creatinine (0.7-1.2) MG/DL Est GFR ( Amer) Est GFR (Non-Af Amer) POC Glucose (mg/dL) 150 H (65-110) mg/dL Random Glucose (65-105) mg/dL Calcium (8.6-10.4) mg/dl Phosphorus (2.5-4.5) mg/dL Magnesium (1.6-2.3) mg/dL Total Bilirubin (0.2-1.3) mg/dL AST (14-36) U/L ALT (9-52) U/L Alkaline Phosphatase (38-126) U/L Total Protein (6.3-8.3) g/dL Albumin (3.5-5.0) g/dL Globulin (2.2-3.9) gm/dL Albumin/Globulin Ratio (1.0-2.1) Urine Color (YELLOW) Urine Clarity (Clear) Urine pH (5.0-8.0) Ur Specific [place] (1.003-1.030) Urine Protein (NEGATIVE) mg/dL Urine Glucose (UA) (Normal) mg/dL Urine Ketones (NEGATIVE) mg/dL Urine Blood (NEGATIVE) Urine Nitrate (NEGATIVE) Urine Bilirubin (NEGATIVE) Urine Urobilinogen (0.2-1.0) mg/dL Ur Leukocyte Esterase (Negative) Shawn/uL 08/21/16 08/20/16 Range/Units 00:57 17:51 WBC (4.8-10.8) K/uL RBC (3.80-5.20) Mil/uL Hgb (11.0-16.0) g/dL Hct (34.0-47.0) % MCV (81.0-99.0) fL MCH (27.0-31.0) pg MCHC (33.0-37.0) g/dL RDW (11.5-14.5) % Plt Count (130-400) K/uL MPV (7.2-11.7) fL Neut % (Auto) (50.0-75.0) % Lymph % (Auto) (20.0-40.0) % [place] % (Auto) (0.0-10.0) % Eos % (Auto) (0.0-4.0) % Baso % (Auto) (0.0-2.0) % Neut # (1.8-7.0) K/uL Lymph # (1.0-4.3) K/uL [place] # (0.0-0.8) K/uL Eos # (0.0-0.7) K/uL Baso # (0.0-0.2) K/uL Puncture Site pCO2 (35-45) mm/Hg pO2 (80-100) mm/Hg HCO3 (21-28) mmol/L ABG pH (7.35-7.45) ABG Total CO2 (22-28) mmol/L ABG O2 Saturation (95-98) % ABG Base Excess (-2.0-3.0) mmol/L ABG Hemoglobin (11.7-17.4) g/dL ABG Carboxyhemoglobin (0.5-1.5) % POC ABG HHb (Measured) (0.0-5.0) % ABG Methemoglobin (0.0-3.0) % Dima Test A-a O2 Difference mm/Hg Respiratory Index Hgb O2 Saturation (95.0-98.0) % Mechanical Rate FiO2 % Tidal Volume PEEP Sodium (132-148) mmol/L Potassium (3.6-5.2) mmol/L Chloride (98-107) mmol/L Carbon Dioxide (22-30) mmol/L Anion Gap (10-20) BUN (7-17) mg/dL Creatinine (0.7-1.2) MG/DL Est GFR ( Amer) Est GFR (Non-Af Amer) POC Glucose (mg/dL) 154 H 138 H (65-110) mg/dL Random Glucose (65-105) mg/dL Calcium (8.6-10.4) mg/dl Phosphorus (2.5-4.5) mg/dL Magnesium (1.6-2.3) mg/dL Total Bilirubin (0.2-1.3) mg/dL AST (14-36) U/L ALT (9-52) U/L Alkaline Phosphatase (38-126) U/L Total Protein (6.3-8.3) g/dL Albumin (3.5-5.0) g/dL Globulin (2.2-3.9) gm/dL Albumin/Globulin Ratio (1.0-2.1) Urine Color (YELLOW) Urine Clarity (Clear) Urine pH (5.0-8.0) Ur Specific [place] (1.003-1.030) Urine Protein (NEGATIVE) mg/dL Urine Glucose (UA) (Normal) mg/dL Urine Ketones (NEGATIVE) mg/dL Urine Blood (NEGATIVE) Urine Nitrate (NEGATIVE) Urine Bilirubin (NEGATIVE) Urine Urobilinogen (0.2-1.0) mg/dL Ur Leukocyte Esterase (Negative) Shawn/uL Laboratory Results - last 24 hr 08/20/16 08/21/16 08/21/16 17:51 00:57 05:20 WBC RBC Hgb Hct MCV MCH MCHC RDW Plt Count MPV Neut % (Auto) Lymph % (Auto) [place] % (Auto) Eos % (Auto) Baso % (Auto) Neut # Lymph # [place] # Eos # Baso # Puncture Site Rr pCO2 22 L pO2 154 H HCO3 24.9 ABG pH 7.58 H ABG Total CO2 21.3 L ABG O2 Saturation 99.5 H ABG Base Excess -0.1 ABG Hemoglobin 10.5 L ABG Carboxyhemoglobin 1.2 POC ABG HHb (Measured) 0.5 ABG Methemoglobin 1.3 Dima Test Pos A-a O2 Difference 104.0 Respiratory Index 0.7 Hgb O2 Saturation 97.0 Mechanical Rate 14 FiO2 40.0 Tidal Volume 400 PEEP 5 Sodium Potassium Chloride Carbon Dioxide Anion Gap BUN Creatinine Est GFR ( Amer) Est GFR (Non-Af Amer) POC Glucose (mg/dL) 138 H 154 H Random Glucose Calcium Phosphorus Magnesium Total Bilirubin AST ALT Alkaline Phosphatase Total Protein Albumin Globulin Albumin/Globulin Ratio Urine Color Urine Clarity Urine pH Ur Specific [place] Urine Protein Urine Glucose (UA) Urine Ketones Urine Blood Urine Nitrate Urine Bilirubin Urine Urobilinogen Ur Leukocyte Esterase 08/21/16 08/21/16 08/21/16 05:46 06:30 06:30 WBC 17.7 H RBC 4.16 Hgb 10.5 L Hct 33.0 L MCV 79.3 L MCH 25.3 L MCHC 31.9 L RDW 15.9 H Plt Count 176 MPV 10.2 Neut % (Auto) 76.3 H Lymph % (Auto) 11.6 L [place] % (Auto) 11.7 H Eos % (Auto) 0.0 Baso % (Auto) 0.4 Neut # 13.5 H Lymph # 2.1 [place] # 2.1 H Eos # 0.0 Baso # 0.1 Puncture Site pCO2 pO2 HCO3 ABG pH ABG Total CO2 ABG O2 Saturation ABG Base Excess ABG Hemoglobin ABG Carboxyhemoglobin POC ABG HHb (Measured) ABG Methemoglobin Dima Test A-a O2 Difference Respiratory Index Hgb O2 Saturation Mechanical Rate FiO2 Tidal Volume PEEP Sodium 140 Potassium 4.0 Chloride 109 H Carbon Dioxide 20 L Anion Gap 15 BUN 56 H Creatinine 3.2 H Est GFR ( Amer) 17 Est GFR (Non-Af Amer) 14 POC Glucose (mg/dL) 150 H Random Glucose 164 H Calcium 7.9 L Phosphorus 1.2 L Magnesium 2.1 Total Bilirubin 1.1 AST 264 H D ALT 308 H D Alkaline Phosphatase 57 Total Protein 6.5 Albumin 3.2 L Globulin 3.3 Albumin/Globulin Ratio 1.0 Urine Color Urine Clarity Urine pH Ur Specific [place] Urine Protein Urine Glucose (UA) Urine Ketones Urine Blood Urine Nitrate Urine Bilirubin Urine Urobilinogen Ur Leukocyte Esterase 08/21/16 08/21/16 10:05 11:50 WBC RBC Hgb Hct MCV MCH MCHC RDW Plt Count MPV Neut % (Auto) Lymph % (Auto) [place] % (Auto) Eos % (Auto) Baso % (Auto) Neut # Lymph # [place] # Eos # Baso # Puncture Site pCO2 pO2 HCO3 ABG pH ABG Total CO2 ABG O2 Saturation ABG Base Excess ABG Hemoglobin ABG Carboxyhemoglobin POC ABG HHb (Measured) ABG Methemoglobin Dima Test A-a O2 Difference Respiratory Index Hgb O2 Saturation Mechanical Rate FiO2 Tidal Volume PEEP Sodium Potassium Chloride Carbon Dioxide Anion Gap BUN Creatinine Est GFR ( Amer) Est GFR (Non-Af Amer) POC Glucose (mg/dL) 148 H Random Glucose Calcium Phosphorus Magnesium Total Bilirubin AST ALT Alkaline Phosphatase Total Protein Albumin Globulin Albumin/Globulin Ratio Urine Color Yellow Urine Clarity Turbid Urine pH 5.0 Ur Specific [place] 1.024 Urine Protein 2+ H Urine Glucose (UA) Normal Urine Ketones Negative Urine Blood 3+ H Urine Nitrate Negative Urine Bilirubin Negative Urine Urobilinogen Normal Ur Leukocyte Esterase 3+ H Fingerstick Blood Sugar Results: 154 Assessment/Plan - Assessment and Plan (Free Text) Assessment: 76yo F. Unknown PMHx, p/w with v. fib cardiac arrest, s/p resuscitation with ROSC, s/p cardiac cath with non-obstructive cardiomyopathy (EF 20%) Plan: Neuro: Unresponsive, neuro following Keppra EEG - f/u results Cardiovascular: Vital signs stable Cont metoprolol Cardio following Pulmonary: Intubated Saturating well Gastrointestinal: No acute issues Tube feeds Hematology: No acute issues Endocrine: No acute issues Renal: NANCY, Cr now at 3.2 Cont IVF Infectious Disease: Febrile Procalcitonin elevated at 45 Started Cefepime Consult ID GI Prophylaxis: Protonix DVT Prophylaxis: Heparin <Tez,Heber S - Last Filed: 08/21/16 15:03> CCU Objective - Vital Signs / Intake & Output Vital Signs (Last 4 hours): Vital Signs Temp Pulse Resp BP Pulse Ox 08/21/16 12:30 113 H 31 H 143/41 L 100 08/21/16 12:00 102.9 F H 08/21/16 11:31 113 H 29 H 121/64 100 Intake and Output (Last 8hrs): Intake & Output 08/20/16 08/21/16 08/21/16 22:59 06:59 14:59 Intake Total 1010 1100 1845 Output Total 330 315 90 Balance 128 874 5303 Weight 153 lb 0.2 oz Intake: Intake, IV Amount 281 623 0458 Left Antecubital 692 113 7349 y lined to antecubital 150 Tube Feeding 210 240 60 Other 60 60 Output: Urine 330 315 90 Urethral (Wyman) 330 315 90 Stool 0 - Medications Active Medications: Active Medications Generic Name Dose Route Start Last Admin Trade Name Freq PRN Reason Stop Dose Admin Acetaminophen 650 mg 08/21/16 00:14 08/21/16 08:47 Tylenol 650mg/20.3ml Solution Ud NG 650 mg Q6 PRN Administration for temp.,101 and above Sodium Chloride 1,000 mls @ 100 mls/hr 08/19/16 03:53 08/21/16 09:00 Sodium Chloride 0.9% IV 100 mls/hr .Q10H KELLI Administration Levetiracetam 500 mg/ Sodium 105 mls @ 420 mls/hr 08/19/16 13:00 08/21/16 12: 15 Chloride IVPB 420 mls/hr Q12H KELLI Administration Cefepime HCl 1 gm in 50 mls @ 100 mls/hr 08/21/16 12:00 08/21/16 12:15 Maxipime Iv 1 Gm Premix IVPB 100 mls/hr Q12H KELLI Administration Sodium Phosphate 15 mmole/ 255 mls @ 50 mls/hr 08/21/16 10:00 08/21/16 10:16 Sodium Chloride IVPB 08/21/16 15:05 50 mls/hr .Q5H6M ONE Administration Insulin Aspart 0 unit 08/19/16 03:45 08/21/16 12:09 Novolog SC Not Given Q6 KELLI Protocol Metoprolol Tartrate 50 mg 08/20/16 18:00 08/21/16 12:16 Lopressor GT Not Given BID [facility] Pantoprazole Sodium 40 mg 08/21/16 10:00 08/21/16 10:17 Protonix Inj IVP 40 mg DAILY [facility] Administration - Patient Studies Lab Studies: Lab Studies 08/21/16 08/21/16 08/21/16 Range/Units 13:29 11:50 11:41 WBC (4.8-10.8) K/uL RBC (3.80-5.20) Mil/uL Hgb (11.0-16.0) g/dL Hct (34.0-47.0) % MCV (81.0-99.0) fL MCH (27.0-31.0) pg MCHC (33.0-37.0) g/dL RDW (11.5-14.5) % Plt Count (130-400) K/uL MPV (7.2-11.7) fL Neut % (Auto) (50.0-75.0) % Lymph % (Auto) (20.0-40.0) % [place] % (Auto) (0.0-10.0) % Eos % (Auto) (0.0-4.0) % Baso % (Auto) (0.0-2.0) % Neut # (1.8-7.0) K/uL Lymph # (1.0-4.3) K/uL [place] # (0.0-0.8) K/uL Eos # (0.0-0.7) K/uL Baso # (0.0-0.2) K/uL Puncture Site pCO2 (35-45) mm/Hg pO2 44 (80-100) mm/Hg HCO3 (21-28) mmol/L ABG pH (7.35-7.45) ABG Total CO2 (22-28) mmol/L ABG O2 Saturation (95-98) % ABG Base Excess (-2.0-3.0) mmol/L ABG Hemoglobin (11.7-17.4) g/dL ABG Carboxyhemoglobin (0.5-1.5) % POC ABG HHb (Measured) (0.0-5.0) % ABG Methemoglobin (0.0-3.0) % Dima Test VBG pH 7.54 H (7.32-7.43) VBG pCO2 25 L (40-60) mmHg VBG HCO3 24.9 mmol/L VBG Total CO2 22.2 (22-28) mmol/L VBG O2 Sat (Calc) 89.3 H (40-65) % VBG Base Excess 0.3 (0.0-2.0) mmol/L VBG Potassium 3.4 L (3.6-5.2) mmol/L A-a O2 Difference mm/Hg Respiratory Index Hgb O2 Saturation (95.0-98.0) % Glucose 141 H (65-105) mg/dl Lactate 2.4 H (0.7-2.1) mmol/L Mechanical Rate FiO2 40.0 % Tidal Volume PEEP 5 Sodium 148.0 (132-148) mmol/L Potassium (3.6-5.2) mmol/L Chloride 118.0 H (98-107) mmol/L Carbon Dioxide (22-30) mmol/L Anion Gap (10-20) BUN (7-17) mg/dL Creatinine (0.7-1.2) MG/DL Est GFR ( Amer) Est GFR (Non-Af Amer) POC Glucose (mg/dL) 148 H (65-110) mg/dL Random Glucose (65-105) mg/dL Calcium (8.6-10.4) mg/dl Phosphorus (2.5-4.5) mg/dL Magnesium (1.6-2.3) mg/dL Total Bilirubin (0.2-1.3) mg/dL AST (14-36) U/L ALT (9-52) U/L Alkaline Phosphatase (38-126) U/L Total Protein (6.3-8.3) g/dL Albumin (3.5-5.0) g/dL Globulin (2.2-3.9) gm/dL Albumin/Globulin Ratio (1.0-2.1) Procalcitonin 45.52 H (0.19-0.49) NG/ML Venous Blood Potassium 3.4 L (3.6-5.2) mmol/L Urine Color (YELLOW) Urine Clarity (Clear) Urine pH (5.0-8.0) Ur Specific [place] (1.003-1.030) Urine Protein (NEGATIVE) mg/dL Urine Glucose (UA) (Normal) mg/dL Urine Ketones (NEGATIVE) mg/dL Urine Blood (NEGATIVE) Urine Nitrate (NEGATIVE) Urine Bilirubin (NEGATIVE) Urine Urobilinogen (0.2-1.0) mg/dL Ur Leukocyte Esterase (Negative) Shawn/uL 08/21/16 08/21/16 08/21/16 Range/Units 10:05 06:30 06:30 WBC 17.7 H (4.8-10.8) K/uL RBC 4.16 (3.80-5.20) Mil/uL Hgb 10.5 L (11.0-16.0) g/dL Hct 33.0 L (34.0-47.0) % MCV 79.3 L (81.0-99.0) fL MCH 25.3 L (27.0-31.0) pg MCHC 31.9 L (33.0-37.0) g/dL RDW 15.9 H (11.5-14.5) % Plt Count 176 (130-400) K/uL MPV 10.2 (7.2-11.7) fL Neut % (Auto) 76.3 H (50.0-75.0) % Lymph % (Auto) 11.6 L (20.0-40.0) % [place] % (Auto) 11.7 H (0.0-10.0) % Eos % (Auto) 0.0 (0.0-4.0) % Baso % (Auto) 0.4 (0.0-2.0) % Neut # 13.5 H (1.8-7.0) K/uL Lymph # 2.1 (1.0-4.3) K/uL [place] # 2.1 H (0.0-0.8) K/uL Eos # 0.0 (0.0-0.7) K/uL Baso # 0.1 (0.0-0.2) K/uL Puncture Site pCO2 (35-45) mm/Hg pO2 (80-100) mm/Hg HCO3 (21-28) mmol/L ABG pH (7.35-7.45) ABG Total CO2 (22-28) mmol/L ABG O2 Saturation (95-98) % ABG Base Excess (-2.0-3.0) mmol/L ABG Hemoglobin (11.7-17.4) g/dL ABG Carboxyhemoglobin (0.5-1.5) % POC ABG HHb (Measured) (0.0-5.0) % ABG Methemoglobin (0.0-3.0) % Dima Test VBG pH (7.32-7.43) VBG pCO2 (40-60) mmHg VBG HCO3 mmol/L VBG Total CO2 (22-28) mmol/L VBG O2 Sat (Calc) (40-65) % VBG Base Excess (0.0-2.0) mmol/L VBG Potassium (3.6-5.2) mmol/L A-a O2 Difference mm/Hg Respiratory Index Hgb O2 Saturation (95.0-98.0) % Glucose (65-105) mg/dl Lactate (0.7-2.1) mmol/L Mechanical Rate FiO2 % Tidal Volume PEEP Sodium 140 (132-148) mmol/L Potassium 4.0 (3.6-5.2) mmol/L Chloride 109 H (98-107) mmol/L Carbon Dioxide 20 L (22-30) mmol/L Anion Gap 15 (10-20) BUN 56 H (7-17) mg/dL Creatinine 3.2 H (0.7-1.2) MG/DL Est GFR ( Amer) 17 Est GFR (Non-Af Amer) 14 POC Glucose (mg/dL) (65-110) mg/dL Random Glucose 164 H (65-105) mg/dL Calcium 7.9 L (8.6-10.4) mg/dl Phosphorus 1.2 L (2.5-4.5) mg/dL Magnesium 2.1 (1.6-2.3) mg/dL Total Bilirubin 1.1 (0.2-1.3) mg/dL AST 264 H D (14-36) U/L ALT 308 H D (9-52) U/L Alkaline Phosphatase 57 (38-126) U/L Total Protein 6.5 (6.3-8.3) g/dL Albumin 3.2 L (3.5-5.0) g/dL Globulin 3.3 (2.2-3.9) gm/dL Albumin/Globulin Ratio 1.0 (1.0-2.1) Procalcitonin (0.19-0.49) NG/ML Venous Blood Potassium (3.6-5.2) mmol/L Urine Color Yellow (YELLOW) Urine Clarity Turbid (Clear) Urine pH 5.0 (5.0-8.0) Ur Specific [place] 1.024 (1.003-1.030) Urine Protein 2+ H (NEGATIVE) mg/dL Urine Glucose (UA) Normal (Normal) mg/dL Urine Ketones Negative (NEGATIVE) mg/dL Urine Blood 3+ H (NEGATIVE) Urine Nitrate Negative (NEGATIVE) Urine Bilirubin Negative (NEGATIVE) Urine Urobilinogen Normal (0.2-1.0) mg/dL Ur Leukocyte Esterase 3+ H (Negative) Shawn/uL 08/21/16 08/21/16 08/21/16 Range/Units 05:46 05:20 00:57 WBC (4.8-10.8) K/uL RBC (3.80-5.20) Mil/uL Hgb (11.0-16.0) g/dL Hct (34.0-47.0) % MCV (81.0-99.0) fL MCH (27.0-31.0) pg MCHC (33.0-37.0) g/dL RDW (11.5-14.5) % Plt Count (130-400) K/uL MPV (7.2-11.7) fL Neut % (Auto) (50.0-75.0) % Lymph % (Auto) (20.0-40.0) % [place] % (Auto) (0.0-10.0) % Eos % (Auto) (0.0-4.0) % Baso % (Auto) (0.0-2.0) % Neut # (1.8-7.0) K/uL Lymph # (1.0-4.3) K/uL [place] # (0.0-0.8) K/uL Eos # (0.0-0.7) K/uL Baso # (0.0-0.2) K/uL Puncture Site Rr pCO2 22 L (35-45) mm/Hg pO2 154 H (80-100) mm/Hg HCO3 24.9 (21-28) mmol/L ABG pH 7.58 H (7.35-7.45) ABG Total CO2 21.3 L (22-28) mmol/L ABG O2 Saturation 99.5 H (95-98) % ABG Base Excess -0.1 (-2.0-3.0) mmol/L ABG Hemoglobin 10.5 L (11.7-17.4) g/dL ABG Carboxyhemoglobin 1.2 (0.5-1.5) % POC ABG HHb (Measured) 0.5 (0.0-5.0) % ABG Methemoglobin 1.3 (0.0-3.0) % Dima Test Pos VBG pH (7.32-7.43) VBG pCO2 (40-60) mmHg VBG HCO3 mmol/L VBG Total CO2 (22-28) mmol/L VBG O2 Sat (Calc) (40-65) % VBG Base Excess (0.0-2.0) mmol/L VBG Potassium (3.6-5.2) mmol/L A-a O2 Difference 104.0 mm/Hg Respiratory Index 0.7 Hgb O2 Saturation 97.0 (95.0-98.0) % Glucose (65-105) mg/dl Lactate (0.7-2.1) mmol/L Mechanical Rate 14 FiO2 40.0 % Tidal Volume 400 PEEP 5 Sodium (132-148) mmol/L Potassium (3.6-5.2) mmol/L Chloride (98-107) mmol/L Carbon Dioxide (22-30) mmol/L Anion Gap (10-20) BUN (7-17) mg/dL Creatinine (0.7-1.2) MG/DL Est GFR ( Amer) Est GFR (Non-Af Amer) POC Glucose (mg/dL) 150 H 154 H (65-110) mg/dL Random Glucose (65-105) mg/dL Calcium (8.6-10.4) mg/dl Phosphorus (2.5-4.5) mg/dL Magnesium (1.6-2.3) mg/dL Total Bilirubin (0.2-1.3) mg/dL AST (14-36) U/L ALT (9-52) U/L Alkaline Phosphatase (38-126) U/L Total Protein (6.3-8.3) g/dL Albumin (3.5-5.0) g/dL Globulin (2.2-3.9) gm/dL Albumin/Globulin Ratio (1.0-2.1) Procalcitonin (0.19-0.49) NG/ML Venous Blood Potassium (3.6-5.2) mmol/L Urine Color (YELLOW) Urine Clarity (Clear) Urine pH (5.0-8.0) Ur Specific [place] (1.003-1.030) Urine Protein (NEGATIVE) mg/dL Urine Glucose (UA) (Normal) mg/dL Urine Ketones (NEGATIVE) mg/dL Urine Blood (NEGATIVE) Urine Nitrate (NEGATIVE) Urine Bilirubin (NEGATIVE) Urine Urobilinogen (0.2-1.0) mg/dL Ur Leukocyte Esterase (Negative) Shawn/uL 08/20/16 Range/Units 17:51 WBC (4.8-10.8) K/uL RBC (3.80-5.20) Mil/uL Hgb (11.0-16.0) g/dL Hct (34.0-47.0) % MCV (81.0-99.0) fL MCH (27.0-31.0) pg MCHC (33.0-37.0) g/dL RDW (11.5-14.5) % Plt Count (130-400) K/uL MPV (7.2-11.7) fL Neut % (Auto) (50.0-75.0) % Lymph % (Auto) (20.0-40.0) % [place] % (Auto) (0.0-10.0) % Eos % (Auto) (0.0-4.0) % Baso % (Auto) (0.0-2.0) % Neut # (1.8-7.0) K/uL Lymph # (1.0-4.3) K/uL [place] # (0.0-0.8) K/uL Eos # (0.0-0.7) K/uL Baso # (0.0-0.2) K/uL Puncture Site pCO2 (35-45) mm/Hg pO2 (80-100) mm/Hg HCO3 (21-28) mmol/L ABG pH (7.35-7.45) ABG Total CO2 (22-28) mmol/L ABG O2 Saturation (95-98) % ABG Base Excess (-2.0-3.0) mmol/L ABG Hemoglobin (11.7-17.4) g/dL ABG Carboxyhemoglobin (0.5-1.5) % POC ABG HHb (Measured) (0.0-5.0) % ABG Methemoglobin (0.0-3.0) % Dima Test VBG pH (7.32-7.43) VBG pCO2 (40-60) mmHg VBG HCO3 mmol/L VBG Total CO2 (22-28) mmol/L VBG O2 Sat (Calc) (40-65) % VBG Base Excess (0.0-2.0) mmol/L VBG Potassium (3.6-5.2) mmol/L A-a O2 Difference mm/Hg Respiratory Index Hgb O2 Saturation (95.0-98.0) % Glucose (65-105) mg/dl Lactate (0.7-2.1) mmol/L Mechanical Rate FiO2 % Tidal Volume PEEP Sodium (132-148) mmol/L Potassium (3.6-5.2) mmol/L Chloride (98-107) mmol/L Carbon Dioxide (22-30) mmol/L Anion Gap (10-20) BUN (7-17) mg/dL Creatinine (0.7-1.2) MG/DL Est GFR ( Amer) Est GFR (Non-Af Amer) POC Glucose (mg/dL) 138 H (65-110) mg/dL Random Glucose (65-105) mg/dL Calcium (8.6-10.4) mg/dl Phosphorus (2.5-4.5) mg/dL Magnesium (1.6-2.3) mg/dL Total Bilirubin (0.2-1.3) mg/dL AST (14-36) U/L ALT (9-52) U/L Alkaline Phosphatase (38-126) U/L Total Protein (6.3-8.3) g/dL Albumin (3.5-5.0) g/dL Globulin (2.2-3.9) gm/dL Albumin/Globulin Ratio (1.0-2.1) Procalcitonin (0.19-0.49) NG/ML Venous Blood Potassium (3.6-5.2) mmol/L Urine Color (YELLOW) Urine Clarity (Clear) Urine pH (5.0-8.0) Ur Specific [place] (1.003-1.030) Urine Protein (NEGATIVE) mg/dL Urine Glucose (UA) (Normal) mg/dL Urine Ketones (NEGATIVE) mg/dL Urine Blood (NEGATIVE) Urine Nitrate (NEGATIVE) Urine Bilirubin (NEGATIVE) Urine Urobilinogen (0.2-1.0) mg/dL Ur Leukocyte Esterase (Negative) Shawn/uL Laboratory Results - last 24 hr 08/20/16 08/21/16 08/21/16 17:51 00:57 05:20 WBC RBC Hgb Hct MCV MCH MCHC RDW Plt Count MPV Neut % (Auto) Lymph % (Auto) [place] % (Auto) Eos % (Auto) Baso % (Auto) Neut # Lymph # [place] # Eos # Baso # Puncture Site Rr pCO2 22 L pO2 154 H HCO3 24.9 ABG pH 7.58 H ABG Total CO2 21.3 L ABG O2 Saturation 99.5 H ABG Base Excess -0.1 ABG Hemoglobin 10.5 L ABG Carboxyhemoglobin 1.2 POC ABG HHb (Measured) 0.5 ABG Methemoglobin 1.3 Dima Test Pos VBG pH VBG pCO2 VBG HCO3 VBG Total CO2 VBG O2 Sat (Calc) VBG Base Excess VBG Potassium A-a O2 Difference 104.0 Respiratory Index 0.7 Hgb O2 Saturation 97.0 Glucose Lactate Mechanical Rate 14 FiO2 40.0 Tidal Volume 400 PEEP 5 Sodium Potassium Chloride Carbon Dioxide Anion Gap BUN Creatinine Est GFR ( Amer) Est GFR (Non-Af Amer) POC Glucose (mg/dL) 138 H 154 H Random Glucose Calcium Phosphorus Magnesium Total Bilirubin AST ALT Alkaline Phosphatase Total Protein Albumin Globulin Albumin/Globulin Ratio Procalcitonin Venous Blood Potassium Urine Color Urine Clarity Urine pH Ur Specific [place] Urine Protein Urine Glucose (UA) Urine Ketones Urine Blood Urine Nitrate Urine Bilirubin Urine Urobilinogen Ur Leukocyte Esterase 08/21/16 08/21/16 08/21/16 05:46 06:30 06:30 WBC 17.7 H RBC 4.16 Hgb 10.5 L Hct 33.0 L MCV 79.3 L MCH 25.3 L MCHC 31.9 L RDW 15.9 H Plt Count 176 MPV 10.2 Neut % (Auto) 76.3 H Lymph % (Auto) 11.6 L [place] % (Auto) 11.7 H Eos % (Auto) 0.0 Baso % (Auto) 0.4 Neut # 13.5 H Lymph # 2.1 [place] # 2.1 H Eos # 0.0 Baso # 0.1 Puncture Site pCO2 pO2 HCO3 ABG pH ABG Total CO2 ABG O2 Saturation ABG Base Excess ABG Hemoglobin ABG Carboxyhemoglobin POC ABG HHb (Measured) ABG Methemoglobin Dima Test VBG pH VBG pCO2 VBG HCO3 VBG Total CO2 VBG O2 Sat (Calc) VBG Base Excess VBG Potassium A-a O2 Difference Respiratory Index Hgb O2 Saturation Glucose Lactate Mechanical Rate FiO2 Tidal Volume PEEP Sodium 140 Potassium 4.0 Chloride 109 H Carbon Dioxide 20 L Anion Gap 15 BUN 56 H Creatinine 3.2 H Est GFR ( Amer) 17 Est GFR (Non-Af Amer) 14 POC Glucose (mg/dL) 150 H Random Glucose 164 H Calcium 7.9 L Phosphorus 1.2 L Magnesium 2.1 Total Bilirubin 1.1 AST 264 H D ALT 308 H D Alkaline Phosphatase 57 Total Protein 6.5 Albumin 3.2 L Globulin 3.3 Albumin/Globulin Ratio 1.0 Procalcitonin Venous Blood Potassium Urine Color Urine Clarity Urine pH Ur Specific [place] Urine Protein Urine Glucose (UA) Urine Ketones Urine Blood Urine Nitrate Urine Bilirubin Urine Urobilinogen Ur Leukocyte Esterase 08/21/16 08/21/16 08/21/16 10:05 11:41 11:50 WBC RBC Hgb Hct MCV MCH MCHC RDW Plt Count MPV Neut % (Auto) Lymph % (Auto) [place] % (Auto) Eos % (Auto) Baso % (Auto) Neut # Lymph # [place] # Eos # Baso # Puncture Site pCO2 pO2 HCO3 ABG pH ABG Total CO2 ABG O2 Saturation ABG Base Excess ABG Hemoglobin ABG Carboxyhemoglobin POC ABG HHb (Measured) ABG Methemoglobin Dima Test VBG pH VBG pCO2 VBG HCO3 VBG Total CO2 VBG O2 Sat (Calc) VBG Base Excess VBG Potassium A-a O2 Difference Respiratory Index Hgb O2 Saturation Glucose Lactate Mechanical Rate FiO2 Tidal Volume PEEP Sodium Potassium Chloride Carbon Dioxide Anion Gap BUN Creatinine Est GFR ( Amer) Est GFR (Non-Af Amer) POC Glucose (mg/dL) 148 H Random Glucose Calcium Phosphorus Magnesium Total Bilirubin AST ALT Alkaline Phosphatase Total Protein Albumin Globulin Albumin/Globulin Ratio Procalcitonin 45.52 H Venous Blood Potassium Urine Color Yellow Urine Clarity Turbid Urine pH 5.0 Ur Specific [place] 1.024 Urine Protein 2+ H Urine Glucose (UA) Normal Urine Ketones Negative Urine Blood 3+ H Urine Nitrate Negative Urine Bilirubin Negative Urine Urobilinogen Normal Ur Leukocyte Esterase 3+ H 08/21/16 13:29 WBC RBC Hgb Hct MCV MCH MCHC RDW Plt Count MPV Neut % (Auto) Lymph % (Auto) [place] % (Auto) Eos % (Auto) Baso % (Auto) Neut # Lymph # [place] # Eos # Baso # Puncture Site pCO2 pO2 44 HCO3 ABG pH ABG Total CO2 ABG O2 Saturation ABG Base Excess ABG Hemoglobin ABG Carboxyhemoglobin POC ABG HHb (Measured) ABG Methemoglobin Dima Test VBG pH 7.54 H VBG pCO2 25 L VBG HCO3 24.9 VBG Total CO2 22.2 VBG O2 Sat (Calc) 89.3 H VBG Base Excess 0.3 VBG Potassium 3.4 L A-a O2 Difference Respiratory Index Hgb O2 Saturation Glucose 141 H Lactate 2.4 H Mechanical Rate FiO2 40.0 Tidal Volume PEEP 5 Sodium 148.0 Potassium Chloride 118.0 H Carbon Dioxide Anion Gap BUN Creatinine Est GFR ( Amer) Est GFR (Non-Af Amer) POC Glucose (mg/dL) Random Glucose Calcium Phosphorus Magnesium Total Bilirubin AST ALT Alkaline Phosphatase Total Protein Albumin Globulin Albumin/Globulin Ratio Procalcitonin Venous Blood Potassium 3.4 L Urine Color Urine Clarity Urine pH Ur Specific [place] Urine Protein Urine Glucose (UA) Urine Ketones Urine Blood Urine Nitrate Urine Bilirubin Urine Urobilinogen Ur Leukocyte Esterase Attending/Attestation - Attestation I have personally seen and examined this patient.: Yes I have fully participated in the care of the patient.: Yes I have reviewed all pertinent clinical information: Yes Notes (Text): 08/21/16 15:00 Patient seen and examined in the intensive care unit. Case discussed with house staff in the morning rounds. Intubated on ventilatory support with triggering of the ventilator No corneal or gag reflexes Coffee ground for OGT Remains febrile with elevated white count and bands Status post "sepsis with elevated lactate level Started on IV antibiotics no Further nosebleed noted Prognosis poor Palliative care consult
--- NOTE | 2016-08-21 12:49 | RAD ---
HISTORY: Central line placement. Portable study 11:34. COMPARISON: August 21, 2016. 07:18. FINDINGS: LUNGS: No active pulmonary disease. PLEURA: No significant pleural effusion identified, no pneumothorax apparent. CARDIOVASCULAR: No radiographic findings to suggest acute or significant cardiovascular disease. Venous access catheter in satisfactory position. Inserted via right internal jugular approach. Tip is in the SVC. OSSEOUS STRUCTURES: No significant abnormalities. VISUALIZED UPPER ABDOMEN: Normal. OTHER FINDINGS: Stable position of nasogastric tube and endotracheal tube. IMPRESSION: No adverse findings status post placement of right IJ catheter. Catheter tip in good position. Otherwise no interval change.
--- NOTE | 2016-08-21 13:07 | PCM.PROC ---
Procedures Attestation:: I certify that I have explained the specified Operation(s) or Procedure(s), risks, benefits and reasonable alternatives to the Patient and/or other person responsible. The opportunity was given to ask questions and all questions answered - Central Line Placement Right Internal Jugular Triple Lumen Catheter Aseptic technique was employed throughout the procedure: Hand Hygiene done prior to procedure, Full sterile barriers (mask, hair cover, sterile gown, sterile gloves), Full body sterile drape, Chloraprep Antiseptic: 30 second prep for IJ or SC sites Central Line Prep: Chlorhexidine-Alcohol Combination Local Anesthesia Used: Lidocaine 1% Ultrasound Used for Placement: Yes Central Line Lumen Inserted: triple Central Line Length: 16 cm Post Procedure: Sutured in Place, Good Blood Return, All Ports Aspirated, Flushed, Capped, Sterile Dressing Applied Secured by: Suture Post procedure dressing: Chlorhexidine disc (Biopatch) Post Procedure X-Ray: Yes Patient Tolerated Procedure: Well Immediate Complications: None
[2016-08-21] MEDS ORDERED: Vancomycin 1 gm/NS 200 ml 1 GM/200 ML BAG IVPB STA (13:13)
[2016-08-21 13:32] LABS: VENOUS BLOOD GAS BASE EXCESS 0.3 mmol/L (0.0-2.0); VENOUS BLOOD GAS PCO2 25 mmHg (40-60); VENOUS BLOOD PH 7.54 (7.32-7.43)
--- NOTE | 2016-08-21 13:57 | PCM.SEPTIC ---
Sepsis Progress Note - Non Invasive Reassessment Vital Sign (Latest): Temp Pulse Resp BP Pulse Ox 102.9 F H 113 H 31 H 143/41 L 100 08/21/16 12:00 08/21/16 12:30 08/21/16 12:30 08/21/16 12:30 08/21/16 12:30
--- NOTE | 2016-08-21 14:01 | CP.PCM.PN ---
Subjective - Date & Time of Evaluation Date of Evaluation: 08/21/16 Time of Evaluation: 13:58 - Subjective Subjective: Code sepsis note Code Sepsis called at 13:52 Lactate 2.4, WBC elevated at 17.7 and with bandemia on admission. No code sepsis called at time of admission. Pt is febrile, tachycardic and tachypneic on vent. Abx have been started and pt is hemodynamically stable with IVF at maintenance. Repeat lactate ordered for 3 hours later. Will f/u Objective - Vital Signs/Intake and Output Vital Signs (last 24 hours): Temp Pulse Resp BP Pulse Ox 102.9 F H 113 H 31 H 143/41 L 100 08/21/16 12:00 08/21/16 12:30 08/21/16 12:30 08/21/16 12:30 08/21/16 12:30 Intake and Output: 08/21/16 08/21/16 06:59 18:59 Intake Total 1620 1845 Output Total 475 90 Balance 1145 1755 - Medications Medications: Current Medications Acetaminophen (Tylenol 650mg/20.3ml Solution Ud) 650 mg NG Q6 PRN PRN Reason: for temp.,101 and above Last Admin: 08/21/16 08:47 Dose: 650 mg Sodium Chloride (Sodium Chloride 0.9%) 1,000 mls @ 100 mls/hr IV .Q10H [facility] Last Admin: 08/21/16 09:00 Dose: 100 mls/hr Levetiracetam 500 mg/ Sodium (Chloride) 105 mls @ 420 mls/hr IVPB Q12H [facility] Last Admin: 08/21/16 12:15 Dose: 420 mls/hr Cefepime HCl (Maxipime Iv 1 Gm Premix) 1 gm in 50 mls @ 100 mls/hr IVPB Q12H [facility] Last Admin: 08/21/16 12:15 Dose: 100 mls/hr Sodium Phosphate 15 mmole/ (Sodium Chloride) 255 mls @ 50 mls/hr IVPB .Q5H6M ONE Stop: 08/21/16 15:05 Last Admin: 08/21/16 10:16 Dose: 50 mls/hr Vancomycin/Sodium Chloride (Vancocin) 1 gm in 200 mls @ 133 mls/hr IVPB STAT STA Stop: 08/21/16 14:43 Insulin Aspart (Novolog) 0 unit SC Q6 [facility] PRN Reason: Protocol Last Admin: 08/21/16 12:09 Dose: Not Given Metoprolol Tartrate (Lopressor) 50 mg GT BID [facility] Last Admin: 08/21/16 12:16 Dose: Not Given Pantoprazole Sodium (Protonix Inj) 40 mg IVP DAILY [facility] Last Admin: 08/21/16 10:17 Dose: 40 mg - Labs Labs: 08/21/16 06:30 08/21/16 06:30 PT 12.5 SECONDS (9.7-12.2) H 08/19/16 04:35 INR 1.1 08/19/16 04:35 APTT 133 SECONDS (21-34) H* 08/19/16 04:35 - Constitutional Appears: Other (intubated) - Head Exam Head Exam: ATRAUMATIC, NORMOCEPHALIC - Eye Exam Pupil Exam: PERRL (sluggish) - Respiratory Exam Respiratory Exam: Rhonchi (tachypneic, breathing above vent) - Cardiovascular Exam Cardiovascular Exam: Tachycardia, +S1, +S2 - GI/Abdominal Exam GI & Abdominal Exam: Soft, Normal Bowel Sounds - Extremities Exam Extremities Exam: Normal Capillary Refill - Skin Skin Exam: Dry, Warm
[2016-08-21 16:42] LABS: VENOUS BLOOD GAS BASE EXCESS -0.3 mmol/L (0.0-2.0); VENOUS BLOOD GAS PCO2 25 mmHg (40-60); VENOUS BLOOD PH 7.53 (7.32-7.43)
--- NOTE | 2016-08-21 18:17 | PCM.SEPTIC ---
Sepsis Progress Note - Reassessment Type Date of Evaluation: 08/21/16 Time of Evaluation: 18:16 Reassessment Type: Non-invasive reassessment - Non Invasive Reassessment Were the most recent vital sign reviewed: Yes Vital Sign (Latest): Temp Pulse Resp BP Pulse Ox 98.5 F 117 H 36 H 132/41 L 100 08/21/16 16:00 08/21/16 16:32 08/21/16 16:32 08/21/16 16:32 08/21/16 16:32 Cardiovascular: Yes: Tachycardia Respiratory: Yes: Rhonchi, Other (intubated) Capillary Refill: Normal (Less than 2 sec) Skin: Warm, Dry
--- NOTE | 2016-08-21 19:50 | CP.PCM.PN ---
Subjective - Date & Time of Evaluation Date of Evaluation: 08/21/16 Time of Evaluation: 19:45 - Subjective Subjective: patient remains intubated. all notes reviewed. family is at the bedside. Objective - Vital Signs/Intake and Output Vital Signs (last 24 hours): Temp Pulse Resp BP Pulse Ox 98.5 F 113 H 17 91/41 L 98 08/21/16 16:00 08/21/16 18:06 08/21/16 18:06 08/21/16 18:06 08/21/16 18:06 Intake and Output: 08/21/16 08/22/16 18:59 06:59 Intake Total 2695 Output Total 350 Balance 2345 - Medications Medications: Current Medications Acetaminophen (Tylenol 650mg/20.3ml Solution Ud) 650 mg NG Q6 PRN PRN Reason: for temp.,101 and above Last Admin: 08/21/16 08:47 Dose: 650 mg Sodium Chloride (Sodium Chloride 0.9%) 1,000 mls @ 100 mls/hr IV .Q10H [facility] Last Admin: 08/21/16 16:44 Dose: Not Given Levetiracetam 500 mg/ Sodium (Chloride) 105 mls @ 420 mls/hr IVPB Q12H [facility] Last Admin: 08/21/16 12:15 Dose: 420 mls/hr Cefepime HCl (Maxipime Iv 1 Gm Premix) 1 gm in 50 mls @ 100 mls/hr IVPB Q12H [facility] Last Admin: 08/21/16 12:15 Dose: 100 mls/hr Norepinephrine Bitartrate 8 mg (/ Sodium Chloride) 258 mls @ 7.74 mls/hr IV .Q24H PRN; Protocol; 4 MCG/MIN PRN Reason: TITRATE PER MD ORDER Insulin Aspart (Novolog) 0 unit SC Q6 [facility] PRN Reason: Protocol Last Admin: 08/21/16 18:22 Dose: 1 unit Metoprolol Tartrate (Lopressor) 50 mg GT BID [facility] Last Admin: 08/21/16 18:07 Dose: Not Given Pantoprazole Sodium (Protonix Inj) 40 mg IVP DAILY [facility] Last Admin: 08/21/16 10:17 Dose: 40 mg - Labs Labs: 08/21/16 06:30 08/21/16 06:30 PT 12.5 SECONDS (9.7-12.2) H 08/19/16 04:35 INR 1.1 08/19/16 04:35 APTT 133 SECONDS (21-34) H* 08/19/16 04:35 - Constitutional Appears: No Acute Distress - Head Exam Head Exam: NORMAL INSPECTION - Eye Exam Eye Exam: Normal appearance - ENT Exam ENT Exam: Mucous Membranes Dry - Neck Exam Neck Exam: Full ROM - Respiratory Exam Respiratory Exam: Decreased Breath Sounds - Cardiovascular Exam Cardiovascular Exam: REGULAR RHYTHM - GI/Abdominal Exam GI & Abdominal Exam: Normal Bowel Sounds - Rectal Exam Rectal Exam: Deferred - Extremities Exam Extremities Exam: Pedal Edema - Back Exam Back Exam: NORMAL INSPECTION - Neurological Exam Neurological Exam: Alert - Psychiatric Exam Psychiatric exam: Normal Affect - Skin Skin Exam: Normal Color Assessment and Plan (1) Cardiac arrest with ventricular fibrillation Assessment & Plan: no current arrhythmia Status: Acute (2) CVA (cerebral vascular accident) Assessment & Plan: cerebral edema seen on CT scan. likely irreversible anoxic encephalopathy. Status: Acute
--- NOTE | 2016-08-21 20:04 | CARD ---
APPROVED REPORT EXAM: Two-dimensional and M-mode echocardiogram with Doppler and color Doppler. Other Information Quality : GoodRhythm : NSR INDICATION Atrial Fibrillation CARDIAC ARREST WITH ROSC 2D DIMENSIONS LVEF (%)35.0 (>50%) M-Mode DIMENSIONS Left Atrium (MM)3.72 (2.5-4.0cm)Aortic Root2.58 (2.2-3.7cm) Aortic Cusp Exc.1.51 (1.5-2.0cm) Aortic Valve AoV Peak Fadhfbxi001.1cm/January Peak GR.9mmHg Mitral Valve E/A ratio0.0 TDI E/Lateral E'0.0E/Medial E'0.0 Tricuspid Valve TR Peak [id number]/sTR Peak [id number] LEFT VENTRICLE The left ventricle is normal size. There is moderate concentric left ventricular hypertrophy. The systolic function is severely impaired. Septal and anterior wall hypokinesis No left ventricle thrombus noted on this study. RIGHT VENTRICLE The right ventricle is normal size. There is normal right ventricular wall thickness. The right ventricular systolic function is normal. ATRIA The left atrium size is normal. The right atrium size is normal. AORTIC VALVE The aortic valve is not well visualized. There is no aortic valvular stenosis. MITRAL VALVE The mitral valve is mildly thickened. Mitral annular calcification is moderate. TRICUSPID VALVE There is no tricuspid valve regurgitation noted. GREAT VESSELS The aortic root is normal in size. The IVC was not visualized. PERICARDIAL EFFUSION There is a trace circumferential pericardial effusion. <Conclusion> The left ventricle is normal size. There is moderate concentric left ventricular hypertrophy. The systolic function is severely impaired. Septal and anterior wall hypokinesis
--- NOTE | 2016-08-21 20:57 | EEG ---
DATE: 08/21/2016 This is a 16-channel electroencephalogram of a comatose adult. The study was performed at the [facility]. The patient is on ventilation. The resting electroencephalogram consists of low amplitude fast beta activities superimposed with 2-3 Hz delta activity seen. Some blinking artifact contaminated the background rhythm. There are sharp er activities with phase reversal activities also noted at left parietal region. This is all consist ent with epileptiform activities. The photic stimulation did not evoke driving response noted at 2-2 0 Hz. IMPRESSION: This is abnormal electroencephalogram because of persistent slowing throughout the recor d consistent with bilateral cerebral dysfunction superimposed with sharper activities and phase rever carrie at left parietal region suggestive of epileptiform focus. Please correlate the finding with the neurological and radiological studies. Dima Santos MD cc: [id number] TT: 08/21/2016 20:56:09 Confirmation # [id number] Dictation # [id number] rio
[2016-08-21] MEDS ORDERED: levETIRAcetam 500 MG in Sodium Chloride 0.9% 100 ML IVPB ONE (22:00)
[2016-08-22 04:42] LABS: ABG ALLEN TEST POS; ABG MECHANICAL RATE 14; ARTERIAL BLOOD HGB O2 SAT 96.7 % (95.0-98.0); ATERIAL BLOOD GAS PEEP 5; CARBOXYHEMOGLOBIN 1.2 % (0.5-1.5); DRAW SITE RR; HHB 0.9 % (0.0-5.0); METHEMOGLOBIN 1.1 % (0.0-3.0)
[2016-08-22] MEDS: Sodium Chloride 0.9% 1,000 ML IV SCH ×3 (06:08→21:32)
[2016-08-22] MEDS: (Novolog) Insulin Aspart, Recombinant 100 u/ml 10 ml vial SC SCH ×4 (06:35→18:55)
[2016-08-22 06:53] LABS: BASO % 0.4 % (0.0-2.0); HEMATOCRIT 24.7 % (34.0-47.0); LYMPH # 1.7 K/uL (1.0-4.3); LYMPH % 11.9 % (20.0-40.0); MEAN CELL VOLUME 79.3 fL (81.0-99.0); MEAN CORPUSCULAR HEMOGLOBIN 25.8 pg (27.0-31.0); MEAN CORPUSCULAR HGB CONC 32.6 g/dL (33.0-37.0); MEAN PLATELET VOLUME 10.9 fL (7.2-11.7); MONO # 1.2 K/uL (0.0-0.8); MONO % 8.5 % (0.0-10.0); NRBC % 2.5 % (0.0-2.0); RED CELL DISTRIBUTION WIDTH 16.8 % (11.5-14.5); WHITE BLOOD COUNT 13.9 K/uL (4.8-10.8)
[2016-08-22 06:59] LABS: POTASSIUM 2.9 mmol/L (3.6-5.2)
[2016-08-22 07:02] LABS: ALB/GLOB RATIO 0.9 (1.0-2.1); BILIRUBIN,TOTAL 0.9 mg/dL (0.2-1.3); CALCIUM 6.7 mg/dl (8.6-10.4); PHOSPHOROUS 1.9 mg/dL (2.5-4.5); TOTAL PROTEIN 5.2 g/dL (6.3-8.3)
[2016-08-22 07:03] LABS: MAGNESIUM 1.9 mg/dL (1.6-2.3)
[2016-08-22] MEDS ORDERED: Sodium Phosphate 15 MMOLE in Sodium Chloride 0.9% 250 ML IVPB ONE (08:33)
--- NOTE | 2016-08-22 09:41 | RAD ---
HISTORY: intubated COMPARISON: 08/21/2016 FINDINGS: LUNGS: No active pulmonary disease. PLEURA: No significant pleural effusion identified, no pneumothorax apparent. CARDIOVASCULAR: ET tube and NG tube unchanged. Right IJ central venous catheter unchanged terminating in the region of the superior vena cava. OSSEOUS STRUCTURES: No significant abnormalities. VISUALIZED UPPER ABDOMEN: Normal. OTHER FINDINGS: None. IMPRESSION: No active disease.
[2016-08-22] MEDS: Meropenem 500 MG in Sodium Chloride 0.9% 100 ML IVPB SCH ×2 (09:55→21:20)
--- NOTE | 2016-08-22 12:48 | CP.PCM.PN ---
Subjective - Date & Time of Evaluation Date of Evaluation: 08/22/16 Time of Evaluation: 11:00 - Subjective Subjective: Cardiology Progress Note Dr. Chaparro Patient seen and examined at bedside in ICU. Remains unresponsive, intubated and on ventilator. Per ICU and charting, family considering moving forward with terminal extubation/comfort care. Palliative is on board and following. Overnight, patient developed a persistent fever of 104-105F, minimally improved with tylenol, so active cooling measures were implemented. No ROS obtainable due to intubated and unresponsive state. No arrhythmias noted on bedside monitor. Objective - Vital Signs/Intake and Output Vital Signs (last 24 hours): Temp Pulse Resp BP Pulse Ox 99.4 F 75 14 160/53 H 99 08/22/16 04:00 08/22/16 11:30 08/22/16 11:30 08/22/16 11:30 08/22/16 11:00 Intake and Output: 08/22/16 08/22/16 06:59 18:59 Intake Total 1948 921.4 Output Total 330 30 Balance 1618 891.4 - Medications Medications: Current Medications Acetaminophen (Tylenol 650mg/20.3ml Solution Ud) 650 mg NG Q6 PRN PRN Reason: for temp.,101 and above Last Admin: 08/21/16 21:25 Dose: 650 mg Norepinephrine Bitartrate 8 mg (/ Sodium Chloride) 258 mls @ 7.74 mls/hr IV .Q24H PRN; Protocol; 4 MCG/MIN PRN Reason: TITRATE PER MD ORDER Last Titration: 08/22/16 12:11 Dose: 8 mcg/min, 15.48 mls/hr Sodium Chloride (Sodium Chloride 0.9%) 1,000 mls @ 125 mls/hr IV .Q8H [facility] Last Admin: 08/22/16 12:13 Dose: Not Given Levetiracetam 750 mg/ Sodium (Chloride) 107.5 mls @ 420 mls/hr IVPB Q12H [facility] Last Admin: 08/22/16 09:55 Dose: 420 mls/hr Sodium Phosphate 15 mmole/ (Sodium Chloride) 255 mls @ 50 mls/hr IVPB .Q5H6M ONE Stop: 08/22/16 13:38 Last Admin: 08/22/16 09:53 Dose: 50 mls/hr Meropenem 500 mg/ Sodium (Chloride) 100 mls @ 100 mls/hr IVPB Q12 [facility] Last Admin: 08/22/16 09:55 Dose: 100 mls/hr Potassium Chloride (Potassium Chloride 20 Meq/100 Ml) 20 meq in 100 mls @ 50 mls/hr IVPB ONCE ONE Stop: 08/22/16 13:59 Last Admin: 08/22/16 12:10 Dose: 50 mls/hr Potassium Chloride (Potassium Chloride 20 Meq/100 Ml) 20 meq in 100 mls @ 50 mls/hr IVPB ONCE ONE Stop: 08/22/16 14:59 Insulin Aspart (Novolog) 0 unit SC Q6 [facility] PRN Reason: Protocol Last Admin: 08/22/16 12:11 Dose: Not Given Metoprolol Tartrate (Lopressor) 50 mg GT BID [facility] Last Admin: 08/22/16 09:56 Dose: Not Given Pantoprazole Sodium (Protonix Inj) 40 mg IVP DAILY [facility] Last Admin: 08/22/16 09:55 Dose: 40 mg - Labs Labs: 08/22/16 06:33 08/22/16 06:33 PT 12.5 SECONDS (9.7-12.2) H 08/19/16 04:35 INR 1.1 08/19/16 04:35 APTT 133 SECONDS (21-34) H* 08/19/16 04:35 - Constitutional Appears: Other (Unresponsive, Intubated but not on sedation) - Head Exam Head Exam: ATRAUMATIC, NORMAL INSPECTION, NORMOCEPHALIC - Eye Exam Eye Exam: absent: Conjunctival injection, EOMI (unable to assess EOMI as unresponsive, no avoidance of direct light challenge for PERRL assessment), PERRL (pupils pinpoint, non-reactive to light), Scleral icterus Pupil Exam: Fixed (pinpoint), PERRL (EKG 08/19/16 shows: Sinus rhythm 82 bpm with 1st degree heart block, Right bundle branch block,Left anterior fascicular block, bifasicular block, minimal voltage criteria for LVH, may be normal variant. Septal infarct, age undetermined. ). absent: Irregular, NORMAL ACCOMODATION, Unequal - ENT Exam Additional comments: ETT and OGT in place - Neck Exam Additional comments: Trachea midline on palpation - Respiratory Exam Respiratory Exam: absent: Clear to Ausculation Bilateral, NORMAL BREATHING PATTERN Additional comments: Intubated and mechanically ventilated, diffuse ronchi in all auscultated dunn , no wheezes notes - Cardiovascular Exam Cardiovascular Exam: REGULAR RHYTHM, RRR, +S1, +S2. absent: Bradycardia, Tachycardia, Irregular Rhythm Additional comments: no arrhythmias noted on bedside telemetry monitoring palpable UE peripheral pulses (Radials +1 b/l) difficult to palpate LE peripheral pulses (faint LLE dorsalis pedis, unable to palpate RLE dorsalis pedis), may be 2/2 active cooling - GI/Abdominal Exam GI & Abdominal Exam: Soft, Diminished Bowel Sounds. absent: Distended, Firm, Rigid - Extremities Exam Extremities Exam: Pedal Edema (+trace pitting edema in bilateral ankles) Additional comments: wearing Weight-offloading boots and SCDs, no gross asymmetry 2/2 edema or erythema noted on exam feet and ankles cool to palpation (likely 2/2 active cooling) - Neurological Exam Neurological Exam: absent: Alert, Awake, Oriented x3 Additional comments: Intubated but no on sedation No responsiveness to verbal or physical stimuli, no response to noxious stimuli No plantar reflex bilaterally Holding extremities flaccidly Pinpoint bilateral pupils, no occular movements noted - Psychiatric Exam Additional comments: Unable to assess 2/2 unresponsive state - Skin Skin Exam: Dry, Normal Color Additional comments: LE cold to palpation 2/2 active cooling measures Assessment and Plan (1) Cardiac arrest with ventricular fibrillation Assessment & Plan: -Cardiac arrest 2/2 VFib in field and after arrival, ROSC x2 after resuscitative measures including CPR and shocks -No arrhythmia's noted on bedside monitor or on tele, NSR -Neuro following, based on imaging and EEG suggests this is irreversible anoxic encephalopathy -Due to family's plan to move towards terminal extubation/comfort measures, ICD not indicated, will sign off. Please reconsult if status changes. Thank you for this interesting consult. Status: Acute - Assessment and Plan (Free Text) Assessment: Case discussed with Dr. Chaparro.
--- NOTE | 2016-08-22 14:35 | CP.PCM.PN ---
Subjective - Date & Time of Evaluation Date of Evaluation: 08/22/16 Time of Evaluation: 14:24 - Subjective Subjective: patient intubated, unable to offer any complaints. GCS remains at 3. prognosis poor. Family meeting held for discussion about terminal extubation Objective - Vital Signs/Intake and Output Vital Signs (last 24 hours): Temp Pulse Resp BP Pulse Ox 99.4 F 75 14 160/53 H 99 08/22/16 04:00 08/22/16 11:30 08/22/16 11:30 08/22/16 11:30 08/22/16 11:00 Intake and Output: 08/22/16 08/22/16 06:59 18:59 Intake Total 1948 921.4 Output Total 330 30 Balance 1618 891.4 - Medications Medications: Current Medications Acetaminophen (Tylenol 650mg/20.3ml Solution Ud) 650 mg NG Q6 PRN PRN Reason: for temp.,101 and above Last Admin: 08/21/16 21:25 Dose: 650 mg Norepinephrine Bitartrate 8 mg (/ Sodium Chloride) 258 mls @ 7.74 mls/hr IV .Q24H PRN; Protocol; 4 MCG/MIN PRN Reason: TITRATE PER MD ORDER Last Titration: 08/22/16 12:11 Dose: 8 mcg/min, 15.48 mls/hr Sodium Chloride (Sodium Chloride 0.9%) 1,000 mls @ 125 mls/hr IV .Q8H [facility] Last Admin: 08/22/16 12:13 Dose: Not Given Levetiracetam 750 mg/ Sodium (Chloride) 107.5 mls @ 420 mls/hr IVPB Q12H [facility] Last Admin: 08/22/16 09:55 Dose: 420 mls/hr Meropenem 500 mg/ Sodium (Chloride) 100 mls @ 100 mls/hr IVPB Q12 [facility] Last Admin: 08/22/16 09:55 Dose: 100 mls/hr Potassium Chloride (Potassium Chloride 20 Meq/100 Ml) 20 meq in 100 mls @ 50 mls/hr IVPB ONCE ONE Stop: 08/22/16 14:59 Insulin Aspart (Novolog) 0 unit SC Q6 [facility] PRN Reason: Protocol Last Admin: 08/22/16 12:11 Dose: Not Given Metoprolol Tartrate (Lopressor) 50 mg GT BID [facility] Last Admin: 08/22/16 09:56 Dose: Not Given Pantoprazole Sodium (Protonix Inj) 40 mg IVP DAILY [facility] Last Admin: 08/22/16 09:55 Dose: 40 mg - Labs Labs: 08/22/16 06:33 08/22/16 06:33 PT 12.5 SECONDS (9.7-12.2) H 08/19/16 04:35 INR 1.1 08/19/16 04:35 APTT 133 SECONDS (21-34) H* 08/19/16 04:35 - Head Exam Head Exam: ATRAUMATIC, NORMAL INSPECTION, NORMOCEPHALIC - Eye Exam Pupil Exam: Fixed - ENT Exam Additional comments: ET tube - Respiratory Exam Additional comments: On MV - Cardiovascular Exam Cardiovascular Exam: Tachycardia - GI/Abdominal Exam GI & Abdominal Exam: Hypoactive Bowel Sounds - Rectal Exam Rectal Exam: Deferred - Exam Additional comments: Wyman cath - Extremities Exam Extremities Exam: Normal Inspection - Back Exam Back Exam: NORMAL INSPECTION - Neurological Exam Neurological Exam: Motor Sensory Deficit Neuro motor strength exam: Left Upper Extremity: 0, Right Upper Extremity: 0, Left Lower Extremity: 0, Right Lower Extremity: 0 - Psychiatric Exam Psychiatric exam: Flat Affect - Skin Skin Exam: Normal Color Assessment and Plan - Assessment and Plan (Free Text) Assessment: Patient remains unresponsive to stimuli, on MV and S/P recent Code Sepsis. Neurological exam is very poor . As per report patient has sustained irreversible brain injuries. Meaningful recovery is not expected. In presence of patient's daughter Steph, the granddaughter and the niece, Jefferson Do and myself, Doctor Tez explained the complexity of clinical presentation and very poor quality of life at present. The family was informed that the other way to keep patient on shelter MV support would be the invasive procedure of creating a tracheostomy. Family declined it as an option as they were concerned with patient's comfort and quality of life. We presented family with an option of removing life support in controlled setting where patient would be allowed natural without suffering. Family agreed and asked for more time to talk among themself before reaching final decision. We supported it. Impression * This is a very sick patient with anoxic brain injury and multi organ failure * meaningful recovery is not expected * Family is debating on terminal extubation Suggestion * Removal of life support and allowing natural would be the best course of action for this patient * palliative care will fallow up with the family
--- NOTE | 2016-08-22 14:52 | CP.CCUPN ---
<Julian Estrada - Last Filed: 08/22/16 14:49> CCU Subjective - Physician Review Subjective (Free Text): 08/22/16 14:49 PGY-1 ICU progress note Pt seen and examined at bedside. Intubated. No overnight events. Critical Care Time Spent (in minutes): 35 CCU Objective - Vital Signs / Intake & Output Vital Signs (Last 4 hours): Vital Signs Pulse Resp BP Pulse Ox 08/22/16 11:30 75 14 160/53 H 08/22/16 11:00 76 14 150/45 L 99 Intake and Output (Last 8hrs): Intake & Output 08/21/16 08/22/16 08/22/16 22:59 06:59 14:59 Intake Total 976 1389 921.4 Output Total 300 240 30 Balance 676 1149 891.4 Weight 154 lb 8 oz Intake: IV 49 209 190 Intake, IV Amount 927 1180 731.4 Left Antecubital 417 Right Jug TLC Distal 375 1000 625 Right Jug TLC Medial 35 130 106.4 Right Jug TLC Proximal 100 50 Output: Gastric Amount 100 Nares 100 Urine 200 240 30 Urethral (Wyman) 200 240 30 Other: # Bowel Movements 1 1 - Physical Exam Head: Positive for: Atraumatic, Normocephalic Pupils: Positive for: PERRL Respiratory/Chest: Positive for: Good Air Exchange, Rhonchi, Other (intubated) Cardiovascular: Positive for: Normal S1, S2 Abdomen: Positive for: Normal Bowel Sounds. Negative for: Distention Upper Extremity: Positive for: NORMAL PULSES Lower Extremity: Positive for: NORMAL PULSES Neurological: Positive for: Other (intubated, unresponsive) Skin: Positive for: Warm, Dry Psychiatric: Positive for: Other (unresponsive) - Medications Active Medications: Active Medications Generic Name Dose Route Start Last Admin Trade Name Freq PRN Reason Stop Dose Admin Acetaminophen 650 mg 08/21/16 00:14 08/21/16 21:25 Tylenol 650mg/20.3ml Solution Ud NG 650 mg Q6 PRN Administration for temp.,101 and above Norepinephrine Bitartrate 8 mg 258 mls @ 7.74 mls/hr 08/21/16 19:44 08/22/16 12:11 / Sodium Chloride IV 8 mcg/min .Q24H PRN 15.48 mls/hr TITRATE PER MD ORDER Titration Protocol 4 MCG/MIN Sodium Chloride 1,000 mls @ 125 mls/hr 08/21/16 19:49 08/22/16 12:13 Sodium Chloride 0.9% IV Not Given .Q8H KELLI Levetiracetam 750 mg/ Sodium 107.5 mls @ 420 mls/hr 08/22/16 10:00 08/22/16 09:55 Chloride IVPB 420 mls/hr Q12H KELLI Administration Meropenem 500 mg/ Sodium 100 mls @ 100 mls/hr 08/22/16 10:00 08/22/16 09:55 Chloride IVPB 100 mls/hr Q12 KELLI Administration Potassium Chloride 20 meq in 100 mls @ 50 mls/hr 08/22/16 13:00 Potassium Chloride 20 Meq/100 Ml IVPB 08/22/16 14:59 ONCE ONE Insulin Aspart 0 unit 08/19/16 03:45 08/22/16 12:11 Novolog SC Not Given Q6 KELLI Protocol Metoprolol Tartrate 50 mg 08/20/16 18:00 08/22/16 09:56 Lopressor GT Not Given BID KELLI Pantoprazole Sodium 40 mg 08/21/16 10:00 08/22/16 09:55 Protonix Inj IVP 40 mg DAILY KELLI Administration - Patient Studies Lab Studies: Microbiology Studies 08/21/16 11:00 Blood Culture - Preliminary Blood NO GROWTH AFTER 24 HOURS 08/21/16 12:54 Gram Stain - Final Trachasp Sputum Culture - Preliminary Gram Positive Cocci 08/21/16 09:21 Urine Culture - Preliminary Urine Gram Negative Tre 08/21/16 11:30 Blood Culture - Preliminary Blood Gram Negative Tre Gram Stain - Final Lab Studies 08/22/16 08/22/16 08/22/16 Range/Units 11:34 06:33 06:33 WBC 13.9 H (4.8-10.8) K/uL RBC 3.11 L (3.80-5.20) Mil/uL Hgb 8.0 L D (11.0-16.0) g/dL Hct 24.7 L (34.0-47.0) % MCV 79.3 L (81.0-99.0) fL MCH 25.8 L (27.0-31.0) pg MCHC 32.6 L (33.0-37.0) g/dL RDW 16.8 H (11.5-14.5) % Plt Count 74 L D (130-400) K/uL MPV 10.9 (7.2-11.7) fL Neut % (Auto) 79.2 H (50.0-75.0) % Lymph % (Auto) 11.9 L (20.0-40.0) % [place] % (Auto) 8.5 (0.0-10.0) % Eos % (Auto) 0.0 (0.0-4.0) % Baso % (Auto) 0.4 (0.0-2.0) % Neut # 11.0 H (1.8-7.0) K/uL Lymph # 1.7 (1.0-4.3) K/uL [place] # 1.2 H (0.0-0.8) K/uL Eos # 0.0 (0.0-0.7) K/uL Baso # 0.0 (0.0-0.2) K/uL Puncture Site pCO2 (35-45) mm/Hg pO2 (30-55) mm/Hg HCO3 (21-28) mmol/L ABG pH (7.35-7.45) ABG Total CO2 (22-28) mmol/L ABG O2 Saturation (95-98) % ABG Base Excess (-2.0-3.0) mmol/L ABG Hemoglobin (11.7-17.4) g/dL ABG Carboxyhemoglobin (0.5-1.5) % POC ABG HHb (Measured) (0.0-5.0) % ABG Methemoglobin (0.0-3.0) % Dima Test VBG pH (7.32-7.43) VBG pCO2 (40-60) mmHg VBG HCO3 mmol/L VBG Total CO2 (22-28) mmol/L VBG O2 Sat (Calc) (40-65) % VBG Base Excess (0.0-2.0) mmol/L VBG Potassium (3.6-5.2) mmol/L A-a O2 Difference mm/Hg Respiratory Index Hgb O2 Saturation (95.0-98.0) % Sodium 147 (132-148) mmol/l Chloride 117 H (98-107) mmol/L Glucose (65-105) mg/dl Lactate (0.7-2.1) mmol/L Mechanical Rate FiO2 % Tidal Volume PEEP Potassium 2.9 L (3.6-5.2) mmol/L Carbon Dioxide 17 L (22-30) mmol/L Anion Gap 16 (10-20) BUN 75 H (7-17) mg/dL Creatinine 5.8 H (0.7-1.2) MG/DL Est GFR ( Amer) 9 Est GFR (Non-Af Amer) 7 POC Glucose (mg/dL) 136 H (65-110) mg/dL Random Glucose 130 H (65-105) mg/dL Calcium 6.7 L (8.6-10.4) mg/dl Phosphorus 1.9 L (2.5-4.5) mg/dL Magnesium 1.9 (1.6-2.3) mg/dL Total Bilirubin 0.9 (0.2-1.3) mg/dL AST 956 H D (14-36) U/L ALT 662 H D (9-52) U/L Alkaline Phosphatase 41 (38-126) U/L Total Protein 5.2 L (6.3-8.3) g/dL Albumin 2.4 L D (3.5-5.0) g/dL Globulin 2.8 (2.2-3.9) gm/dL Albumin/Globulin Ratio 0.9 L (1.0-2.1) Venous Blood Potassium (3.6-5.2) mmol/L 08/22/16 08/22/16 08/22/16 Range/Units 05:57 04:30 00:19 WBC (4.8-10.8) K/uL RBC (3.80-5.20) Mil/uL Hgb (11.0-16.0) g/dL Hct (34.0-47.0) % MCV (81.0-99.0) fL MCH (27.0-31.0) pg MCHC (33.0-37.0) g/dL RDW (11.5-14.5) % Plt Count (130-400) K/uL MPV (7.2-11.7) fL Neut % (Auto) (50.0-75.0) % Lymph % (Auto) (20.0-40.0) % [place] % (Auto) (0.0-10.0) % Eos % (Auto) (0.0-4.0) % Baso % (Auto) (0.0-2.0) % Neut # (1.8-7.0) K/uL Lymph # (1.0-4.3) K/uL [place] # (0.0-0.8) K/uL Eos # (0.0-0.7) K/uL Baso # (0.0-0.2) K/uL Puncture Site Rr pCO2 33 L (35-45) mm/Hg pO2 107 H (30-55) mm/Hg HCO3 17.3 L (21-28) mmol/L ABG pH 7.29 L (7.35-7.45) ABG Total CO2 16.9 L (22-28) mmol/L ABG O2 Saturation 99.1 H (95-98) % ABG Base Excess -9.8 L (-2.0-3.0) mmol/L ABG Hemoglobin 8.7 L (11.7-17.4) g/dL ABG Carboxyhemoglobin 1.2 (0.5-1.5) % POC ABG HHb (Measured) 0.9 (0.0-5.0) % ABG Methemoglobin 1.1 (0.0-3.0) % Dima Test Pos VBG pH (7.32-7.43) VBG pCO2 (40-60) mmHg VBG HCO3 mmol/L VBG Total CO2 (22-28) mmol/L VBG O2 Sat (Calc) (40-65) % VBG Base Excess (0.0-2.0) mmol/L VBG Potassium (3.6-5.2) mmol/L A-a O2 Difference 137.0 mm/Hg Respiratory Index 1.3 Hgb O2 Saturation 96.7 (95.0-98.0) % Sodium (132-148) mmol/l Chloride (98-107) mmol/L Glucose (65-105) mg/dl Lactate (0.7-2.1) mmol/L Mechanical Rate 14 FiO2 40.0 % Tidal Volume 400 PEEP 5 Potassium (3.6-5.2) mmol/L Carbon Dioxide (22-30) mmol/L Anion Gap (10-20) BUN (7-17) mg/dL Creatinine (0.7-1.2) MG/DL Est GFR ( Amer) Est GFR (Non-Af Amer) POC Glucose (mg/dL) 174 H 127 H (65-110) mg/dL Random Glucose (65-105) mg/dL Calcium (8.6-10.4) mg/dl Phosphorus (2.5-4.5) mg/dL Magnesium (1.6-2.3) mg/dL Total Bilirubin (0.2-1.3) mg/dL AST (14-36) U/L ALT (9-52) U/L Alkaline Phosphatase (38-126) U/L Total Protein (6.3-8.3) g/dL Albumin (3.5-5.0) g/dL Globulin (2.2-3.9) gm/dL Albumin/Globulin Ratio (1.0-2.1) Venous Blood Potassium (3.6-5.2) mmol/L 08/21/16 08/21/16 Range/Units 18:02 16:35 WBC (4.8-10.8) K/uL RBC (3.80-5.20) Mil/uL Hgb (11.0-16.0) g/dL Hct (34.0-47.0) % MCV (81.0-99.0) fL MCH (27.0-31.0) pg MCHC (33.0-37.0) g/dL RDW (11.5-14.5) % Plt Count (130-400) K/uL MPV (7.2-11.7) fL Neut % (Auto) (50.0-75.0) % Lymph % (Auto) (20.0-40.0) % [place] % (Auto) (0.0-10.0) % Eos % (Auto) (0.0-4.0) % Baso % (Auto) (0.0-2.0) % Neut # (1.8-7.0) K/uL Lymph # (1.0-4.3) K/uL [place] # (0.0-0.8) K/uL Eos # (0.0-0.7) K/uL Baso # (0.0-0.2) K/uL Puncture Site pCO2 (35-45) mm/Hg pO2 28 L (30-55) mm/Hg HCO3 (21-28) mmol/L ABG pH (7.35-7.45) ABG Total CO2 (22-28) mmol/L ABG O2 Saturation (95-98) % ABG Base Excess (-2.0-3.0) mmol/L ABG Hemoglobin (11.7-17.4) g/dL ABG Carboxyhemoglobin (0.5-1.5) % POC ABG HHb (Measured) (0.0-5.0) % ABG Methemoglobin (0.0-3.0) % Dima Test VBG pH 7.53 H (7.32-7.43) VBG pCO2 25 L (40-60) mmHg VBG HCO3 23.8 mmol/L VBG Total CO2 21.7 L (22-28) mmol/L VBG O2 Sat (Calc) 64.7 (40-65) % VBG Base Excess -0.3 L (0.0-2.0) mmol/L VBG Potassium 3.1 L (3.6-5.2) mmol/L A-a O2 Difference mm/Hg Respiratory Index Hgb O2 Saturation (95.0-98.0) % Sodium 150.0 H (132-148) mmol/l Chloride 121.0 H (98-107) mmol/L Glucose 125 H (65-105) mg/dl Lactate 2.4 H (0.7-2.1) mmol/L Mechanical Rate FiO2 % Tidal Volume PEEP Potassium (3.6-5.2) mmol/L Carbon Dioxide (22-30) mmol/L Anion Gap (10-20) BUN (7-17) mg/dL Creatinine (0.7-1.2) MG/DL Est GFR ( Amer) Est GFR (Non-Af Amer) POC Glucose (mg/dL) 162 H (65-110) mg/dL Random Glucose (65-105) mg/dL Calcium (8.6-10.4) mg/dl Phosphorus (2.5-4.5) mg/dL Magnesium (1.6-2.3) mg/dL Total Bilirubin (0.2-1.3) mg/dL AST (14-36) U/L ALT (9-52) U/L Alkaline Phosphatase (38-126) U/L Total Protein (6.3-8.3) g/dL Albumin (3.5-5.0) g/dL Globulin (2.2-3.9) gm/dL Albumin/Globulin Ratio (1.0-2.1) Venous Blood Potassium 3.1 L (3.6-5.2) mmol/L Laboratory Results - last 24 hr 08/21/16 08/21/16 08/22/16 16:35 18:02 00:19 WBC RBC Hgb Hct MCV MCH MCHC RDW Plt Count MPV Neut % (Auto) Lymph % (Auto) [place] % (Auto) Eos % (Auto) Baso % (Auto) Neut # Lymph # [place] # Eos # Baso # Puncture Site pCO2 pO2 28 L HCO3 ABG pH ABG Total CO2 ABG O2 Saturation ABG Base Excess ABG Hemoglobin ABG Carboxyhemoglobin POC ABG HHb (Measured) ABG Methemoglobin Dima Test VBG pH 7.53 H VBG pCO2 25 L VBG HCO3 23.8 VBG Total CO2 21.7 L VBG O2 Sat (Calc) 64.7 VBG Base Excess -0.3 L VBG Potassium 3.1 L A-a O2 Difference Respiratory Index Hgb O2 Saturation Sodium 150.0 H Chloride 121.0 H Glucose 125 H Lactate 2.4 H Mechanical Rate FiO2 Tidal Volume PEEP Potassium Carbon Dioxide Anion Gap BUN Creatinine Est GFR ( Amer) Est GFR (Non-Af Amer) POC Glucose (mg/dL) 162 H 127 H Random Glucose Calcium Phosphorus Magnesium Total Bilirubin AST ALT Alkaline Phosphatase Total Protein Albumin Globulin Albumin/Globulin Ratio Venous Blood Potassium 3.1 L 08/22/16 08/22/16 08/22/16 04:30 05:57 06:33 WBC 13.9 H RBC 3.11 L Hgb 8.0 L D Hct 24.7 L MCV 79.3 L MCH 25.8 L MCHC 32.6 L RDW 16.8 H Plt Count 74 L D MPV 10.9 Neut % (Auto) 79.2 H Lymph % (Auto) 11.9 L [place] % (Auto) 8.5 Eos % (Auto) 0.0 Baso % (Auto) 0.4 Neut # 11.0 H Lymph # 1.7 [place] # 1.2 H Eos # 0.0 Baso # 0.0 Puncture Site Rr pCO2 33 L pO2 107 H HCO3 17.3 L ABG pH 7.29 L ABG Total CO2 16.9 L ABG O2 Saturation 99.1 H ABG Base Excess -9.8 L ABG Hemoglobin 8.7 L ABG Carboxyhemoglobin 1.2 POC ABG HHb (Measured) 0.9 ABG Methemoglobin 1.1 Dima Test Pos VBG pH VBG pCO2 VBG HCO3 VBG Total CO2 VBG O2 Sat (Calc) VBG Base Excess VBG Potassium A-a O2 Difference 137.0 Respiratory Index 1.3 Hgb O2 Saturation 96.7 Sodium Chloride Glucose Lactate Mechanical Rate 14 FiO2 40.0 Tidal Volume 400 PEEP 5 Potassium Carbon Dioxide Anion Gap BUN Creatinine Est GFR ( Amer) Est GFR (Non-Af Amer) POC Glucose (mg/dL) 174 H Random Glucose Calcium Phosphorus Magnesium Total Bilirubin AST ALT Alkaline Phosphatase Total Protein Albumin Globulin Albumin/Globulin Ratio Venous Blood Potassium 08/22/16 08/22/16 06:33 11:34 WBC RBC Hgb Hct MCV MCH MCHC RDW Plt Count MPV Neut % (Auto) Lymph % (Auto) [place] % (Auto) Eos % (Auto) Baso % (Auto) Neut # Lymph # [place] # Eos # Baso # Puncture Site pCO2 pO2 HCO3 ABG pH ABG Total CO2 ABG O2 Saturation ABG Base Excess ABG Hemoglobin ABG Carboxyhemoglobin POC ABG HHb (Measured) ABG Methemoglobin Dima Test VBG pH VBG pCO2 VBG HCO3 VBG Total CO2 VBG O2 Sat (Calc) VBG Base Excess VBG Potassium A-a O2 Difference Respiratory Index Hgb O2 Saturation Sodium 147 Chloride 117 H Glucose Lactate Mechanical Rate FiO2 Tidal Volume PEEP Potassium 2.9 L Carbon Dioxide 17 L Anion Gap 16 BUN 75 H Creatinine 5.8 H Est GFR ( Amer) 9 Est GFR (Non-Af Amer) 7 POC Glucose (mg/dL) 136 H Random Glucose 130 H Calcium 6.7 L Phosphorus 1.9 L Magnesium 1.9 Total Bilirubin 0.9 AST 956 H D ALT 662 H D Alkaline Phosphatase 41 Total Protein 5.2 L Albumin 2.4 L D Globulin 2.8 Albumin/Globulin Ratio 0.9 L Venous Blood Potassium Fingerstick Blood Sugar Results: 154 Review of Systems - Review of Systems Systems not reviewed;Unavailable: Intubated Assessment/Plan - Assessment and Plan (Free Text) Assessment: 76yo F. Unknown PMHx, p/w with v. fib cardiac arrest, s/p resuscitation with ROSC, s/p cardiac cath with non-obstructive cardiomyopathy (EF 20%). Now with MSOF Plan: Neuro: Unresponsive, neuro following Keppra increased Cardiovascular: Vital signs stable Levophed started overnight Maintain MAP>65 Cardio following Pulmonary: Intubated Saturating well Serial ABg's and CXR Gastrointestinal: No acute issues Tube feeds Hematology: No acute issues Endocrine: No acute issues Renal: NANCY, Cr still rising, now 5.8 Cont IVF Infectious Disease: Febrile Procalcitonin elevated at 45 Consult ID - started meropenum GI Prophylaxis: Protonix DVT Prophylaxis: Heparin Dispo - Prognosis is very poor. Palliative care consulted. Family meeting today. Considering terminal extubation <Heber Reagan - Last Filed: 08/22/16 18:19> CCU Objective - Vital Signs / Intake & Output Intake and Output (Last 8hrs): Intake & Output 08/22/16 08/22/16 08/22/16 06:59 14:59 22:59 Intake Total 1389 921.4 Output Total 240 30 Balance 1149 891.4 Weight 154 lb 8 oz Intake: IV 209 190 Intake, IV Amount 1180 731.4 Right Jug TLC Distal 1000 625 Right Jug TLC Medial 130 106.4 Right Jug TLC Proximal 50 Output: Urine 240 30 Urethral ([place]) 240 30 Other: # Bowel Movements 1 - Medications Active Medications: Active Medications Generic Name Dose Route Start Last Admin Trade Name Freq PRN Reason Stop Dose Admin Acetaminophen 650 mg 08/21/16 00:14 08/21/16 21:25 Tylenol 650mg/20.3ml Solution Ud NG 650 mg Q6 PRN Administration for temp.,101 and above Norepinephrine Bitartrate 8 mg 258 mls @ 7.74 mls/hr 08/21/16 19:44 08/22/16 12:11 / Sodium Chloride IV 8 mcg/min .Q24H PRN 15.48 mls/hr TITRATE PER MD ORDER Titration Protocol 4 MCG/MIN Sodium Chloride 1,000 mls @ 125 mls/hr 08/21/16 19:49 08/22/16 12:13 Sodium Chloride 0.9% IV Not Given .Q8H KELLI Levetiracetam 750 mg/ Sodium 107.5 mls @ 420 mls/hr 08/22/16 10:00 08/22/16 09:55 Chloride IVPB 420 mls/hr Q12H KELLI Administration Meropenem 500 mg/ Sodium 100 mls @ 100 mls/hr 08/22/16 10:00 08/22/16 09:55 Chloride IVPB 100 mls/hr Q12 KELLI Administration Insulin Aspart 0 unit 08/19/16 03:45 08/22/16 12:11 Novolog SC Not Given Q6 [facility] Protocol Metoprolol Tartrate 50 mg 08/20/16 18:00 08/22/16 09:56 Lopressor GT Not Given BID [facility] Pantoprazole Sodium 40 mg 08/21/16 10:00 08/22/16 09:55 Protonix Inj IVP 40 mg DAILY KELLI Administration - Patient Studies Lab Studies: Microbiology Studies 08/21/16 11:00 Blood Culture - Preliminary Blood NO GROWTH AFTER 24 HOURS 08/21/16 12:54 Gram Stain - Final Trachasp Sputum Culture - Preliminary Gram Positive Cocci 08/21/16 09:21 Urine Culture - Preliminary Urine Gram Negative Tre 08/21/16 11:30 Blood Culture - Preliminary Blood Gram Negative Tre Gram Stain - Final Lab Studies 08/22/16 08/22/16 08/22/16 Range/Units 11:34 06:33 06:33 WBC 13.9 H (4.8-10.8) K/uL RBC 3.11 L (3.80-5.20) Mil/uL Hgb 8.0 L D (11.0-16.0) g/dL Hct 24.7 L (34.0-47.0) % MCV 79.3 L (81.0-99.0) fL MCH 25.8 L (27.0-31.0) pg MCHC 32.6 L (33.0-37.0) g/dL RDW 16.8 H (11.5-14.5) % Plt Count 74 L D (130-400) K/uL MPV 10.9 (7.2-11.7) fL Neut % (Auto) 79.2 H (50.0-75.0) % Lymph % (Auto) 11.9 L (20.0-40.0) % [place] % (Auto) 8.5 (0.0-10.0) % Eos % (Auto) 0.0 (0.0-4.0) % Baso % (Auto) 0.4 (0.0-2.0) % Neut # 11.0 H (1.8-7.0) K/uL Lymph # 1.7 (1.0-4.3) K/uL [place] # 1.2 H (0.0-0.8) K/uL Eos # 0.0 (0.0-0.7) K/uL Baso # 0.0 (0.0-0.2) K/uL Puncture Site pCO2 (35-45) mm/Hg pO2 (80-100) mm/Hg HCO3 (21-28) mmol/L ABG pH (7.35-7.45) ABG Total CO2 (22-28) mmol/L ABG O2 Saturation (95-98) % ABG Base Excess (-2.0-3.0) mmol/L ABG Hemoglobin (11.7-17.4) g/dL ABG Carboxyhemoglobin (0.5-1.5) % POC ABG HHb (Measured) (0.0-5.0) % ABG Methemoglobin (0.0-3.0) % Dima Test A-a O2 Difference mm/Hg Respiratory Index Hgb O2 Saturation (95.0-98.0) % Mechanical Rate FiO2 % Tidal Volume PEEP Sodium 147 (132-148) mmol/L Potassium 2.9 L (3.6-5.2) mmol/L Chloride 117 H (98-107) mmol/L Carbon Dioxide 17 L (22-30) mmol/L Anion Gap 16 (10-20) BUN 75 H (7-17) mg/dL Creatinine 5.8 H (0.7-1.2) MG/DL Est GFR ( Amer) 9 Est GFR (Non-Af Amer) 7 POC Glucose (mg/dL) 136 H (65-110) mg/dL Random Glucose 130 H (65-105) mg/dL Calcium 6.7 L (8.6-10.4) mg/dl Phosphorus 1.9 L (2.5-4.5) mg/dL Magnesium 1.9 (1.6-2.3) mg/dL Total Bilirubin 0.9 (0.2-1.3) mg/dL AST 956 H D (14-36) U/L ALT 662 H D (9-52) U/L Alkaline Phosphatase 41 (38-126) U/L Total Protein 5.2 L (6.3-8.3) g/dL Albumin 2.4 L D (3.5-5.0) g/dL Globulin 2.8 (2.2-3.9) gm/dL Albumin/Globulin Ratio 0.9 L (1.0-2.1) 08/22/16 08/22/16 08/22/16 Range/Units 05:57 04:30 00:19 WBC (4.8-10.8) K/uL RBC (3.80-5.20) Mil/uL Hgb (11.0-16.0) g/dL Hct (34.0-47.0) % MCV (81.0-99.0) fL MCH (27.0-31.0) pg MCHC (33.0-37.0) g/dL RDW (11.5-14.5) % Plt Count (130-400) K/uL MPV (7.2-11.7) fL Neut % (Auto) (50.0-75.0) % Lymph % (Auto) (20.0-40.0) % [place] % (Auto) (0.0-10.0) % Eos % (Auto) (0.0-4.0) % Baso % (Auto) (0.0-2.0) % Neut # (1.8-7.0) K/uL Lymph # (1.0-4.3) K/uL [place] # (0.0-0.8) K/uL Eos # (0.0-0.7) K/uL Baso # (0.0-0.2) K/uL Puncture Site Rr pCO2 33 L (35-45) mm/Hg pO2 107 H (80-100) mm/Hg HCO3 17.3 L (21-28) mmol/L ABG pH 7.29 L (7.35-7.45) ABG Total CO2 16.9 L (22-28) mmol/L ABG O2 Saturation 99.1 H (95-98) % ABG Base Excess -9.8 L (-2.0-3.0) mmol/L ABG Hemoglobin 8.7 L (11.7-17.4) g/dL ABG Carboxyhemoglobin 1.2 (0.5-1.5) % POC ABG HHb (Measured) 0.9 (0.0-5.0) % ABG Methemoglobin 1.1 (0.0-3.0) % Dima Test Pos A-a O2 Difference 137.0 mm/Hg Respiratory Index 1.3 Hgb O2 Saturation 96.7 (95.0-98.0) % Mechanical Rate 14 FiO2 40.0 % Tidal Volume 400 PEEP 5 Sodium (132-148) mmol/L Potassium (3.6-5.2) mmol/L Chloride (98-107) mmol/L Carbon Dioxide (22-30) mmol/L Anion Gap (10-20) BUN (7-17) mg/dL Creatinine (0.7-1.2) MG/DL Est GFR ( Amer) Est GFR (Non-Af Amer) POC Glucose (mg/dL) 174 H 127 H (65-110) mg/dL Random Glucose (65-105) mg/dL Calcium (8.6-10.4) mg/dl Phosphorus (2.5-4.5) mg/dL Magnesium (1.6-2.3) mg/dL Total Bilirubin (0.2-1.3) mg/dL AST (14-36) U/L ALT (9-52) U/L Alkaline Phosphatase (38-126) U/L Total Protein (6.3-8.3) g/dL Albumin (3.5-5.0) g/dL Globulin (2.2-3.9) gm/dL Albumin/Globulin Ratio (1.0-2.1) Laboratory Results - last 24 hr 08/22/16 08/22/16 08/22/16 00:19 04:30 05:57 WBC RBC Hgb Hct MCV MCH MCHC RDW Plt Count MPV Neut % (Auto) Lymph % (Auto) [place] % (Auto) Eos % (Auto) Baso % (Auto) Neut # Lymph # [place] # Eos # Baso # Puncture Site Rr pCO2 33 L pO2 107 H HCO3 17.3 L ABG pH 7.29 L ABG Total CO2 16.9 L ABG O2 Saturation 99.1 H ABG Base Excess -9.8 L ABG Hemoglobin 8.7 L ABG Carboxyhemoglobin 1.2 POC ABG HHb (Measured) 0.9 ABG Methemoglobin 1.1 Dima Test Pos A-a O2 Difference 137.0 Respiratory Index 1.3 Hgb O2 Saturation 96.7 Mechanical Rate 14 FiO2 40.0 Tidal Volume 400 PEEP 5 Sodium Potassium Chloride Carbon Dioxide Anion Gap BUN Creatinine Est GFR ( Amer) Est GFR (Non-Af Amer) POC Glucose (mg/dL) 127 H 174 H Random Glucose Calcium Phosphorus Magnesium Total Bilirubin AST ALT Alkaline Phosphatase Total Protein Albumin Globulin Albumin/Globulin Ratio 08/22/16 08/22/16 08/22/16 06:33 06:33 11:34 WBC 13.9 H RBC 3.11 L Hgb 8.0 L D Hct 24.7 L MCV 79.3 L MCH 25.8 L MCHC 32.6 L RDW 16.8 H Plt Count 74 L D MPV 10.9 Neut % (Auto) 79.2 H Lymph % (Auto) 11.9 L [place] % (Auto) 8.5 Eos % (Auto) 0.0 Baso % (Auto) 0.4 Neut # 11.0 H Lymph # 1.7 [place] # 1.2 H Eos # 0.0 Baso # 0.0 Puncture Site pCO2 pO2 HCO3 ABG pH ABG Total CO2 ABG O2 Saturation ABG Base Excess ABG Hemoglobin ABG Carboxyhemoglobin POC ABG HHb (Measured) ABG Methemoglobin Dima Test A-a O2 Difference Respiratory Index Hgb O2 Saturation Mechanical Rate FiO2 Tidal Volume PEEP Sodium 147 Potassium 2.9 L Chloride 117 H Carbon Dioxide 17 L Anion Gap 16 BUN 75 H Creatinine 5.8 H Est GFR ( Amer) 9 Est GFR (Non-Af Amer) 7 POC Glucose (mg/dL) 136 H Random Glucose 130 H Calcium 6.7 L Phosphorus 1.9 L Magnesium 1.9 Total Bilirubin 0.9 AST 956 H D ALT 662 H D Alkaline Phosphatase 41 Total Protein 5.2 L Albumin 2.4 L D Globulin 2.8 Albumin/Globulin Ratio 0.9 L Attending/Attestation - Attestation I have personally seen and examined this patient.: Yes I have fully participated in the care of the patient.: Yes I have reviewed all pertinent clinical information: Yes Notes (Text): 08/22/16 18:18 Patient seen and examined. Case discussed with STAFF in the morning rounds. Case discussed with family at length remained intubated on ventilatory support with no change in mental status On antibiotics for gram-negative rods in the blood and urine Worsening renal function noted Prognosis poor
--- NOTE | 2016-08-22 17:28 | CARD ---
APPROVED REPORT EKG Measurement Heart [id number] <Conclusion> Atrial fibrillation with slow ventricular response with ventricular escape complexes Left axis deviation Left bundle branch block Abnormal ECG
--- NOTE | 2016-08-22 17:29 | CP.PCM.CON ---
History of Present Illness - History of Present Illness History of Present Illness: 76 year old female with history of HTN, hypercholesterolemia, CVA who presents with an out of hospital arrest. The patient presented to [facility] in April with a CVA. 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 intubated in icu referred for id eval of positive blood c/s Review of Systems - Review of Systems Systems not reviewed;Unavailable: Altered Mental Status, Intubated - Constitutional Constitutional: absent: As Per HPI, Anorexia, Chills, Daytime Sleepiness, Excessive Sweating, Fatigue, Fever, Frequent Falls, Headache, Increased Appetite , Lethargy, Malaise, Night Sweats, Snoring, Sleep Apnea, Weight Gain, Weight Loss, Weakness, Other - EENT Eyes: absent: As Per HPI, Blind Spots, Blurred Vision, Change in Vision, Decreased Night Vision, Diplopia, Discharge, Dry Eye, Exophthalmos, Floaters, Irritation, Itchy Eyes, Loss of Peripheral Vision, Pain, Photophobia, Requires Corrective Lenses, Sees Flashes, Spots in Vision, Tunnel Vision, Other Visual Disturbances, Loss of Vision, Other Ears: absent: As Per HPI, Decreased Hearing, Ear Discharge, Ear Pain, Tinnitus, Abnormal Hearing, Disequilibrium, Dizziness, Other Nose/Mouth/Throat: absent: As Per HPI, Epistaxis, Nasal Congestion, Nasal Discharge, Nasal Obstruction, Nasal Trauma, Nose Pain, Post Nasal Drip, Sinus Pain, Sinus Pressure, Bleeding Gums, Change in Voice, Dental Pain, Dry Mouth, Dysphagia, Halitosis, Hoarsness, Lip Swelling, Mouth Lesions, Mouth Pain, Odynophagia, Sore Throat, Throat Swelling, Tongue Swelling, Facial Pain, Neck Pain, Neck Mass, Other - Breasts Breasts: absent: As Per HPI, Change in Shape, Mass, Pain, Nipple Discharge, Nipple Inversion, Skin Changes, Swelling, Other - Cardiovascular Cardiovascular: absent: As Per HPI, Acrocyanosis, Chest Pain, Chest Pain at Rest , Chest Pain with Activity, Claudication, Diaphoresis, Dyspnea, Dyspnea on Exertion, Edema, Irregular Heart Rhythm, Pain Radiating to Arm/Neck/Jaw, Leg Edema, Leg Ulcers, Lightheadedness, Orthopnea, Palpitations, Paroxysmal Nocturnal Dyspnea, Pedal Edema, Radiating Pain, Rapid Heart Rate, Slow Heart Rate, Syncope, Other - Respiratory Respiratory: absent: As Per HPI, Cough, Dyspnea, Hemoptysis, Dyspnea on Exertion , Wheezing, Snoring, Stridor, Pain on Inspiration, Chest Congestion, Excessive Mucous Production, Change in Mucous Color, Pain with Coughing, Other - Gastrointestinal Gastrointestinal: absent: As Per HPI, Abdominal Pain, Belching, Bloating, Change in Bowel Habits, Change in Stool Character, Coffee Ground Emesis, Constipation, Cramping, Diarrhea, Dyspepsia, Dysphagia, Early Satiety, Excessive Flatus, Fecal Incontinence, Heartburn, Hematemesis, Hematochezia, Loose Stools, Melena, Nausea, Odynophagia, Temesmus, Vomiting, Other - Genitourinary Genitourinary: absent: As Per HPI, Change in Urinary Stream, Difficulty Urinating, Dysuria, Flank Pain, Hematuria, Pyuria, Nocturia, Urinary Incontinence, Urinary Frequency, Urinary Hesitance, Urinary Urgency, Voiding Freq/Small Amts, Freq UTI, Hx Renal/Bladder Calculi, Hx /Renal Surgery, Bladder Distension, Other - Reproductive: Female Reproductive:Female: absent: As Per HPI, Amenorrhea, Amenorrhea/ Control, Currently Menstual, Cycle <21 Days, Cycle >35 Days, Cycle Variable, Menses 1-7 Days, Menses >/= 8 Days, Menses Variable, Cycle > 4 Weeks Between, No Menses for 6 Months, Heavy Menses, Light Menses, Normal Menses, Spotting Between Cycles , S/P Hysterectomy, Menopausal, Post Menopausal, Premenarche, Abnormal Vaginal Bleeding, Dysmenorrhea, Dyspareunia, Genital Lesions, Genital Pruritis, Pelvic Pain, Prolapse Symptoms, Sexual Dysfunction, Vaginal Discharge, Vaginal Dryness , Vaginal Odor, Vaginal Pruritis, Other - Menstruation Menstruation: absent: As Per HPI, Amenorrhea, Amenorrhea/ Control, Currently Menstual, Cycle <21 Days, Cycle >35 Days, Cycle Variable, Menses 1-7 Days, Menses >/= 8 Days, Menses Variable, Cycle > 4 Weeks Between, No Menses for 6 Months, Heavy Menses, Light Menses, Normal Menses, Spotting Between Cycles , S/P Hysterectomy, Menopausal, Post Menopausal, Premenarche, Abnormal Vaginal Bleeding, Dysmenorrhea, Other - Musculoskeletal Musculoskeletal: absent: As Per HPI, Abnormal Gait, Arthralgias, Atrophy, Back Pain, Deformity, Joint Swelling, Limited Range of Motion, Loss of Height, Muscle Cramps, Muscle Weakness, Myalgias, Neck Pain, Numbness, Radiating Pain into Limb, Stiffness, Tingling, Other - Integumentary Integumentary: absent: As Per HPI, Acne, Alopecia, Bleeding Lesions, Change in Hair, Change in Nails, Change in Pigmentation, Changing Lesions, Dry Skin, Erythema, Furuncle, Hirsutism, Lesions, New Lesions, Non-Healing Lesions, Photosensitivity, Pruritus, Rash, Skin Pain, Skin Ulcer, Sores, Striae, Swelling , Unusual Bruising, Wounds, Jaundice, Other - Neurological Neurological: absent: As Per HPI, Abnormal Gait, Abnormal Hearing, Abnormal Movements, Abnormal Speech, Behavioral Changes, Burning Sensations, Confusion, Convulsions, Disequilibrium, Dizziness, Numbness, Focal Weakness, Frequent Falls , Headaches, Lack of Coordination, Loss of Vision, Memory Loss, Paresthesias, Radicular Pain, Restless Legs, Sensory Deficit, Syncope, Tingling, Tremor, Vertigo, Weakness, Other Visual Disturbances, Other - Psychiatric Psychiatric: absent: As Per HPI, Abnormal Sleep Pattern, Anhedonia, Anxiety, Auditory Hallucinations, Behavioral Changes, Change in Appetite, Change in Libido, Confusion, Depression, Difficulty Concentrating, Hallucinations, Homicidal Ideation, Hopelessness, Irritability, Memory Loss, Mood Swings, Panic Attacks, Paranoia, Suicidal Ideation, Visual Hallucinations, Tactile Hallucinations, Other - Endocrine Endocrine: absent: As Per HPI, Change in Body Appearance, Change in Libido, Cold Intolorance, Deepening of Voice, Excessive Sweating, Fatigue, Flushing, Heat Intolorance, Increase in Ring/Shoe/Hat Size, Palpitations, Polydipsia, Polyphagia, Polyuria, Other - Hematologic/Lymphatic Hematologic: absent: As Per HPI, Easy Bleeding, Easy Bruising, Lymphadenopathy, Other Past Patient History - Past Medical History & Family History Past Medical History?: Yes - Past Social History Smoking Status: Unknown If Ever Smoked Chewing Tobacco Use: No Cigar Use: No Alcohol: None Drugs: Denies - CARDIAC Hx Cardia Arrhythmia: Yes Hx Hypercholesterolemia: Yes Hx Hypertension: Yes - NEUROLOGICAL HX Cerebrovascular Accident: Yes - INTEGUMENTARY Hx Haley: Yes - MUSCULOSKELETAL/RHEUMATOLOGICAL Hx Falls: No - GASTROINTESTINAL Hx Gall Bladder Disease: Yes (removed) - PSYCHIATRIC Hx Substance Use: No - SURGICAL HISTORY Other/Comment: bowel obstruction removal - ANESTHESIA Hx Anesthesia: Yes Hx Anesthesia Reactions: No Hx Malignant Hyperthermia: No Has any member of the family had a problem w/ anesthesia?: No Meds Allergies/Adverse Reactions: Allergies Allergy/AdvReac Type Severity Reaction Status Date / Time No Known Allergies Allergy Verified 07/22/14 12:52 - Medications Medications: Current Medications Acetaminophen (Tylenol 650mg/20.3ml Solution Ud) 650 mg NG Q6 PRN PRN Reason: for temp.,101 and above Last Admin: 08/21/16 21:25 Dose: 650 mg Norepinephrine Bitartrate 8 mg (/ Sodium Chloride) 258 mls @ 7.74 mls/hr IV .Q24H PRN; Protocol; 4 MCG/MIN PRN Reason: TITRATE PER MD ORDER Last Titration: 08/22/16 12:11 Dose: 8 mcg/min, 15.48 mls/hr Sodium Chloride (Sodium Chloride 0.9%) 1,000 mls @ 125 mls/hr IV .Q8H ON LICENSE OF [facility] Last Admin: 08/22/16 12:13 Dose: Not Given Levetiracetam 750 mg/ Sodium (Chloride) 107.5 mls @ 420 mls/hr IVPB Q12H ON LICENSE OF [facility] Last Admin: 08/22/16 09:55 Dose: 420 mls/hr Meropenem 500 mg/ Sodium (Chloride) 100 mls @ 100 mls/hr IVPB Q12 ON LICENSE OF [facility] Last Admin: 08/22/16 09:55 Dose: 100 mls/hr Insulin Aspart (Novolog) 0 unit SC Q6 KELLI PRN Reason: Protocol Last Admin: 08/22/16 12:11 Dose: Not Given Metoprolol Tartrate (Lopressor) 50 mg GT BID ON LICENSE OF [facility] Last Admin: 08/22/16 09:56 Dose: Not Given Pantoprazole Sodium (Protonix Inj) 40 mg IVP DAILY ON LICENSE OF [facility] Last Admin: 08/22/16 09:55 Dose: 40 mg Physical Exam - Constitutional Appears: Cachectic, Chronically Ill - Head Exam Head Exam: NORMOCEPHALIC - Eye Exam Eye Exam: PERRL. absent: Scleral icterus - ENT Exam ENT Exam: Mucous Membranes Dry - Neck Exam Neck exam: Negative for: Lymphadenopathy - Respiratory Exam Respiratory Exam: Decreased Breath Sounds, Rhonchi - Cardiovascular Exam Cardiovascular Exam: REGULAR RHYTHM, +S1, +S2 - GI/Abdominal Exam GI & Abdominal Exam: Diminished Bowel Sounds, Soft. absent: Tenderness - Rectal Exam Rectal Exam: Deferred - Exam Exam: NORMAL INSPECTION - Extremities Exam Extremities exam: Negative for: calf tenderness, pedal edema - Back Exam Back exam: absent: CVA tenderness (L), CVA tenderness (R) - Neurological Exam Neurological exam: Altered - Skin Skin Exam: Dry, Intact Results - Vital Signs Recent Vital Signs: Last Vital Signs Temp 99.4 F 08/22/16 04:00 Pulse 75 08/22/16 11:30 Resp 14 08/22/16 11:30 BP 160/53 H 08/22/16 11:30 Pulse Ox 99 08/22/16 11:00 - Labs Result Diagrams: 08/22/16 06:33 08/22/16 06:33 Labs: Laboratory Results - last 24 hr 08/21/16 08/22/16 08/22/16 18:02 00:19 04:30 WBC RBC Hgb Hct MCV MCH MCHC RDW Plt Count MPV Neut % (Auto) Lymph % (Auto) [place] % (Auto) Eos % (Auto) Baso % (Auto) Neut # Lymph # [place] # Eos # Baso # Puncture Site Rr pCO2 33 L pO2 107 H HCO3 17.3 L ABG pH 7.29 L ABG Total CO2 16.9 L ABG O2 Saturation 99.1 H ABG Base Excess -9.8 L ABG Hemoglobin 8.7 L ABG Carboxyhemoglobin 1.2 POC ABG HHb (Measured) 0.9 ABG Methemoglobin 1.1 Dima Test Pos A-a O2 Difference 137.0 Respiratory Index 1.3 Hgb O2 Saturation 96.7 Mechanical Rate 14 FiO2 40.0 Tidal Volume 400 PEEP 5 Sodium Potassium Chloride Carbon Dioxide Anion Gap BUN Creatinine Est GFR ( Amer) Est GFR (Non-Af Amer) POC Glucose (mg/dL) 162 H 127 H Random Glucose Calcium Phosphorus Magnesium Total Bilirubin AST ALT Alkaline Phosphatase Total Protein Albumin Globulin Albumin/Globulin Ratio 08/22/16 08/22/16 08/22/16 05:57 06:33 06:33 WBC 13.9 H RBC 3.11 L Hgb 8.0 L D Hct 24.7 L MCV 79.3 L MCH 25.8 L MCHC 32.6 L RDW 16.8 H Plt Count 74 L D MPV 10.9 Neut % (Auto) 79.2 H Lymph % (Auto) 11.9 L [place] % (Auto) 8.5 Eos % (Auto) 0.0 Baso % (Auto) 0.4 Neut # 11.0 H Lymph # 1.7 [place] # 1.2 H Eos # 0.0 Baso # 0.0 Puncture Site pCO2 pO2 HCO3 ABG pH ABG Total CO2 ABG O2 Saturation ABG Base Excess ABG Hemoglobin ABG Carboxyhemoglobin POC ABG HHb (Measured) ABG Methemoglobin Dima Test A-a O2 Difference Respiratory Index Hgb O2 Saturation Mechanical Rate FiO2 Tidal Volume PEEP Sodium 147 Potassium 2.9 L Chloride 117 H Carbon Dioxide 17 L Anion Gap 16 BUN 75 H Creatinine 5.8 H Est GFR ( Amer) 9 Est GFR (Non-Af Amer) 7 POC Glucose (mg/dL) 174 H Random Glucose 130 H Calcium 6.7 L Phosphorus 1.9 L Magnesium 1.9 Total Bilirubin 0.9 AST 956 H D ALT 662 H D Alkaline Phosphatase 41 Total Protein 5.2 L Albumin 2.4 L D Globulin 2.8 Albumin/Globulin Ratio 0.9 L 08/22/16 11:34 WBC RBC Hgb Hct MCV MCH MCHC RDW Plt Count MPV Neut % (Auto) Lymph % (Auto) [place] % (Auto) Eos % (Auto) Baso % (Auto) Neut # Lymph # [place] # Eos # Baso # Puncture Site pCO2 pO2 HCO3 ABG pH ABG Total CO2 ABG O2 Saturation ABG Base Excess ABG Hemoglobin ABG Carboxyhemoglobin POC ABG HHb (Measured) ABG Methemoglobin Dima Test A-a O2 Difference Respiratory Index Hgb O2 Saturation Mechanical Rate FiO2 Tidal Volume PEEP Sodium Potassium Chloride Carbon Dioxide Anion Gap BUN Creatinine Est GFR ( Amer) Est GFR (Non-Af Amer) POC Glucose (mg/dL) 136 H Random Glucose Calcium Phosphorus Magnesium Total Bilirubin AST ALT Alkaline Phosphatase Total Protein Albumin Globulin Albumin/Globulin Ratio Assessment & Plan (1) UTI (urinary tract infection) Status: Acute (2) UTI (urinary tract infection) Status: Acute (3) Bacteremia due to Escherichia coli Status: Acute (4) Bacteremia due to Escherichia coli Status: Acute (5) Cardiac arrest with ventricular fibrillation Status: Acute (6) HTN (hypertension) Status: Acute (7) Hypercholesterolemia Status: Acute - Assessment and Plan (Free Text) Assessment: e coli sepsis with bacteremia and septic shock cont iv rx
[2016-08-23] MEDS: Sodium Chloride 0.9% 1,000 ML IV SCH ×4 (03:00→21:00)
[2016-08-23 04:38] LABS: ABG ALLEN TEST POS; ABG MECHANICAL RATE 14; ARTERIAL BLOOD HGB O2 SAT 97.1 % (95.0-98.0); ATERIAL BLOOD GAS PEEP 5; CARBOXYHEMOGLOBIN 1.5 % (0.5-1.5); DRAW SITE RR; HHB 0.1 % (0.0-5.0); METHEMOGLOBIN 1.3 % (0.0-3.0)
[2016-08-23 06:41] LABS: BASO % 0.2 % (0.0-2.0); EOS # 0.2 K/uL (0.0-0.7); EOS % 0.8 % (0.0-4.0); HEMATOCRIT 26.5 % (34.0-47.0); LYMPH # 1.9 K/uL (1.0-4.3); LYMPH % 9.8 % (20.0-40.0); MEAN CORPUSCULAR HEMOGLOBIN 25.1 pg (27.0-31.0); MEAN CORPUSCULAR HGB CONC 31.3 g/dL (33.0-37.0); MEAN PLATELET VOLUME 11.8 fL (7.2-11.7); MONO # 1.1 K/uL (0.0-0.8); MONO % 5.6 % (0.0-10.0); NRBC % 1.2 % (0.0-2.0); PLATELET COUNT 65 K/uL (130-400); RED CELL DISTRIBUTION WIDTH 17.7 % (11.5-14.5); WHITE BLOOD COUNT 19.4 K/uL (4.8-10.8)
[2016-08-23 06:43] LABS: POTASSIUM 3.8 mmol/L (3.6-5.2)
[2016-08-23 06:45] LABS: ALB/GLOB RATIO 0.9 (1.0-2.1); BILIRUBIN,TOTAL 0.9 mg/dL (0.2-1.3); TOTAL PROTEIN 5.4 g/dL (6.3-8.3)
[2016-08-23 06:46] LABS: CALCIUM 6.5 mg/dl (8.6-10.4); MAGNESIUM 1.9 mg/dL (1.6-2.3)
[2016-08-23] MEDS: (Novolog) Insulin Aspart, Recombinant 100 u/ml 10 ml vial SC SCH ×4 (06:58→18:00)
--- NOTE | 2016-08-23 07:36 | PN ---
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 PHYSICAL EXAMINATION: VITAL SIGNS: Blood pressure 140/83, mean arterial pressure of 102, respiratory rate 16, ____ 72, tem perature afebrile. NEUROLOGIC: The patient is seen in the presence of her daughter as well as her granddaughter. The patient is deeply comatose. Eyes are closed, pinpoint pupils, no corneal reflex, no oculocephali c. No gag reflex on manipulating the endotracheal tube. Extremities are cold, flaccid. No reflexes noted. Plantars are mute. No response to noxious stimuli. 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 Her current exa mination further worsening physiological status to compare with my previous exam. Current examinatio n also showed brainstem dysfunction in addition to bilateral cortical dysfunction. Her prognosis has been discussed with family members as well as contact representative. Family will decide furt her management, including either terminal extubation or update the DNR status. The patient will be f ollowed closely. The patient did have a followup CT of the head consistent with cerebral edema and electroencephalogra m showed sharp wave activities with phase reversal at left parietal region. Following that, the myrtle ent's Keppra dose has been increased and her clinical seizures have been ceased at that point. Dima Santos MD cc: [id number] TT: 08/23/2016 07:36:26 Confirmation # [id number] Dictation # [id number] tn
--- NOTE | 2016-08-23 08:15 | RAD ---
Chest x-ray single frontal view History: Pneumonia. Comparison: None available. Findings: Lines and tubes stable position. Patchy increased markings at the left lung base suggestive for atelectasis and/or infiltrate/effusion. Right hilar prominence. Biapical pleural thickening with upper lobe granulomatous changes. Possible metallic foreign bodies projecting over the left upper felix thorax. Surgical clips in the upper abdomen. Impression: No significant interval change.
[2016-08-23 08:49] LABS: NEUTROPHIL 68 % (50-75); NUCLEATED RED BLOOD CELL 1 % (0-0); TOTAL CELLS COUNTED 100
[2016-08-23 08:52] LABS: GIANT PLATELETS PRESENT; LARGE PLATELETS PRESENT
[2016-08-23] MEDS: Meropenem 500 MG in Sodium Chloride 0.9% 100 ML IVPB SCH (09:47)
--- NOTE | 2016-08-23 13:11 | CP.CCUPN ---
<Julian Estrada - Last Filed: 08/23/16 13:30> CCU Subjective - Physician Review Subjective (Free Text): 08/23/16 12:54 PGY-1 ICU progress note Pt seen and examined at bedside. Intubated. No overnight events. Critical Care Time Spent (in minutes): 35 CCU Objective - Vital Signs / Intake & Output Vital Signs (Last 4 hours): Vital Signs Pulse Resp BP Pulse Ox 08/23/16 11:01 61 16 138/60 08/23/16 11:00 62 16 08/23/16 10:31 71 16 154/66 H 08/23/16 10:03 68 15 156/52 H 08/23/16 10:00 66 14 08/23/16 09:31 65 14 136/76 08/23/16 09:01 63 14 156/66 H 100 08/23/16 09:00 67 13 100 Intake and Output (Last 8hrs): Intake & Output 08/22/16 08/23/16 08/23/16 22:59 06:59 14:59 Intake Total 1018 800 675 Output Total 102 160 70 Balance 916 640 605 Weight 155 lb 8 oz Intake: IV 18 Intake, IV Amount 1000 800 675 Right Jug TLC Distal 800 800 575 Right Jug TLC Medial 200 100 Output: Urine 102 160 70 Urethral (Wyman) 102 160 70 Other: # Bowel Movements 1 1 - Physical Exam Head: Positive for: Atraumatic, Normocephalic Pupils: Positive for: PERRL Mouth: Positive for: Other (dark secretions around mouth) Respiratory/Chest: Positive for: Good Air Exchange, Rhonchi, Other (intubated) Cardiovascular: Positive for: Normal S1, S2 Abdomen: Positive for: Normal Bowel Sounds. Negative for: Distention Upper Extremity: Positive for: NORMAL PULSES Lower Extremity: Positive for: NORMAL PULSES Neurological: Positive for: Other (intubated, unresponsive) Skin: Positive for: Warm, Dry Psychiatric: Positive for: Other (unresponsive) - Medications Active Medications: Active Medications Generic Name Dose Route Start Last Admin Trade Name Freq PRN Reason Stop Dose Admin Acetaminophen 650 mg 08/21/16 00:14 08/21/16 21:25 Tylenol 650mg/20.3ml Solution Ud NG 650 mg Q6 PRN Administration for temp.,101 and above Norepinephrine Bitartrate 8 mg 258 mls @ 7.74 mls/hr 08/21/16 19:44 08/22/16 18:54 / Sodium Chloride IV 0 mcg/min .Q24H PRN 0 mls/hr TITRATE PER MD ORDER Titration Protocol 4 MCG/MIN Sodium Chloride 1,000 mls @ 125 mls/hr 08/21/16 19:49 08/23/16 12:42 Sodium Chloride 0.9% IV Not Given .Q8H KELLI Levetiracetam 750 mg/ Sodium 107.5 mls @ 420 mls/hr 08/22/16 10:00 08/23/16 09:47 Chloride IVPB 420 mls/hr Q12H KELLI Administration Meropenem 500 mg/ Sodium 100 mls @ 100 mls/hr 08/22/16 10:00 08/23/16 09:47 Chloride IVPB 100 mls/hr Q12 KELLI Administration Insulin Aspart 0 unit 08/19/16 03:45 08/23/16 12:41 Novolog SC Not Given Q6 KELLI Protocol Metoprolol Tartrate 50 mg 08/20/16 18:00 08/23/16 09:51 Lopressor GT 50 mg BID KELLI Administration Pantoprazole Sodium 40 mg 08/21/16 10:00 08/23/16 09:51 Protonix Inj IVP 40 mg DAILY KELLI Administration - Patient Studies Lab Studies: Microbiology Studies 08/21/16 11:00 Blood Culture - Preliminary Blood NO GROWTH AFTER 48 HOURS 08/21/16 12:54 Gram Stain - Final Trachasp Sputum Culture - Final Staphylococcus Aureus 08/21/16 09:21 Urine Culture - Final Urine Escherichia Coli Lab Studies 08/23/16 08/23/16 08/23/16 Range/Units 06:20 06:20 05:43 WBC 19.4 H (4.8-10.8) K/uL RBC 3.31 L (3.80-5.20) Mil/uL Hgb 8.3 L (11.0-16.0) g/dL Hct 26.5 L (34.0-47.0) % MCV 80.0 L (81.0-99.0) fL MCH 25.1 L (27.0-31.0) pg MCHC 31.3 L (33.0-37.0) g/dL RDW 17.7 H (11.5-14.5) % Plt Count 65 L (130-400) K/uL MPV 11.8 H (7.2-11.7) fL Neut % (Auto) 83.6 H (50.0-75.0) % Lymph % (Auto) 9.8 L (20.0-40.0) % [place] % (Auto) 5.6 (0.0-10.0) % Eos % (Auto) 0.8 (0.0-4.0) % Baso % (Auto) 0.2 (0.0-2.0) % Neut # 16.2 H (1.8-7.0) K/uL Lymph # 1.9 (1.0-4.3) K/uL [place] # 1.1 H (0.0-0.8) K/uL Eos # 0.2 (0.0-0.7) K/uL Baso # 0.0 (0.0-0.2) K/uL Neutrophils % (Manual) 68 (50-75) % Band Neutrophils % 24 H* (0-2) % Lymphocytes % (Manual) 4 L (20-40) % Monocytes % (Manual) 4 (0-10) % Nucleated RBC % 1 H (0-0) % Platelet Estimate Decreased L (NORMAL) Large Platelets Present Giant Platelets Present Hypochromasia (manual) Slight Poikilocytosis (manual Slight Anisocytosis (manual) Slight Ovalocytes Slight [place] Cells Slight Puncture Site pCO2 (35-45) mm/Hg pO2 (80-100) mm/Hg HCO3 (21-28) mmol/L ABG pH (7.35-7.45) ABG Total CO2 (22-28) mmol/L ABG O2 Saturation (95-98) % ABG Base Excess (-2.0-3.0) mmol/L ABG Hemoglobin (11.7-17.4) g/dL ABG Carboxyhemoglobin (0.5-1.5) % POC ABG HHb (Measured) (0.0-5.0) % ABG Methemoglobin (0.0-3.0) % Dima Test A-a O2 Difference mm/Hg Respiratory Index Hgb O2 Saturation (95.0-98.0) % Mechanical Rate FiO2 % Tidal Volume PEEP Sodium 150 H (132-148) mmol/L Potassium 3.8 (3.6-5.2) mmol/L Chloride 119 H (98-107) mmol/L Carbon Dioxide 13 L (22-30) mmol/L Anion Gap 22 H (10-20) BUN 76 H (7-17) mg/dL Creatinine 5.4 H (0.7-1.2) MG/DL Est GFR ( Amer) 9 Est GFR (Non-Af Amer) 8 POC Glucose (mg/dL) 99 (65-110) mg/dL Random Glucose 85 (65-105) mg/dL Calcium 6.5 L (8.6-10.4) mg/dl Phosphorus 5.0 H (2.5-4.5) mg/dL Magnesium 1.9 (1.6-2.3) mg/dL Total Bilirubin 0.9 (0.2-1.3) mg/dL AST 1057 H (14-36) U/L ALT 676 H (9-52) U/L Alkaline Phosphatase 57 (38-126) U/L Total Protein 5.4 L (6.3-8.3) g/dL Albumin 2.6 L (3.5-5.0) g/dL Globulin 2.8 (2.2-3.9) gm/dL Albumin/Globulin Ratio 0.9 L (1.0-2.1) 08/23/16 08/23/16 08/22/16 Range/Units 04:25 00:07 18:21 WBC (4.8-10.8) K/uL RBC (3.80-5.20) Mil/uL Hgb (11.0-16.0) g/dL Hct (34.0-47.0) % MCV (81.0-99.0) fL MCH (27.0-31.0) pg MCHC (33.0-37.0) g/dL RDW (11.5-14.5) % Plt Count (130-400) K/uL MPV (7.2-11.7) fL Neut % (Auto) (50.0-75.0) % Lymph % (Auto) (20.0-40.0) % [place] % (Auto) (0.0-10.0) % Eos % (Auto) (0.0-4.0) % Baso % (Auto) (0.0-2.0) % Neut # (1.8-7.0) K/uL Lymph # (1.0-4.3) K/uL [place] # (0.0-0.8) K/uL Eos # (0.0-0.7) K/uL Baso # (0.0-0.2) K/uL Neutrophils % (Manual) (50-75) % Band Neutrophils % (0-2) % Lymphocytes % (Manual) (20-40) % Monocytes % (Manual) (0-10) % Nucleated RBC % (0-0) % Platelet Estimate (NORMAL) Large Platelets Giant Platelets Hypochromasia (manual) Poikilocytosis (manual Anisocytosis (manual) Ovalocytes Armando Cells Puncture Site Rr pCO2 32 L (35-45) mm/Hg pO2 158 H (80-100) mm/Hg HCO3 14.4 L (21-28) mmol/L ABG pH 7.22 L (7.35-7.45) ABG Total CO2 14.1 L (22-28) mmol/L ABG O2 Saturation 99.9 H (95-98) % ABG Base Excess -13.5 L (-2.0-3.0) mmol/L ABG Hemoglobin 8.3 L (11.7-17.4) g/dL ABG Carboxyhemoglobin 1.5 (0.5-1.5) % POC ABG HHb (Measured) 0.1 (0.0-5.0) % ABG Methemoglobin 1.3 (0.0-3.0) % Dima Test Pos A-a O2 Difference 87.0 mm/Hg Respiratory Index 0.6 Hgb O2 Saturation 97.1 (95.0-98.0) % Mechanical Rate 14 FiO2 40.0 % Tidal Volume 400 PEEP 5 Sodium (132-148) mmol/L Potassium (3.6-5.2) mmol/L Chloride (98-107) mmol/L Carbon Dioxide (22-30) mmol/L Anion Gap (10-20) BUN (7-17) mg/dL Creatinine (0.7-1.2) MG/DL Est GFR ( Amer) Est GFR (Non-Af Amer) POC Glucose (mg/dL) 85 119 H (65-110) mg/dL Random Glucose (65-105) mg/dL Calcium (8.6-10.4) mg/dl Phosphorus (2.5-4.5) mg/dL Magnesium (1.6-2.3) mg/dL Total Bilirubin (0.2-1.3) mg/dL AST (14-36) U/L ALT (9-52) U/L Alkaline Phosphatase (38-126) U/L Total Protein (6.3-8.3) g/dL Albumin (3.5-5.0) g/dL Globulin (2.2-3.9) gm/dL Albumin/Globulin Ratio (1.0-2.1) Laboratory Results - last 24 hr 08/22/16 08/23/16 08/23/16 18:21 00:07 04:25 WBC RBC Hgb Hct MCV MCH MCHC RDW Plt Count MPV Neut % (Auto) Lymph % (Auto) [place] % (Auto) Eos % (Auto) Baso % (Auto) Neut # Lymph # [place] # Eos # Baso # Neutrophils % (Manual) Band Neutrophils % Lymphocytes % (Manual) Monocytes % (Manual) Nucleated RBC % Platelet Estimate Large Platelets Giant Platelets Hypochromasia (manual) Poikilocytosis (manual Anisocytosis (manual) Ovalocytes [place] Cells Puncture Site Rr pCO2 32 L pO2 158 H HCO3 14.4 L ABG pH 7.22 L ABG Total CO2 14.1 L ABG O2 Saturation 99.9 H ABG Base Excess -13.5 L ABG Hemoglobin 8.3 L ABG Carboxyhemoglobin 1.5 POC ABG HHb (Measured) 0.1 ABG Methemoglobin 1.3 Dima Test Pos A-a O2 Difference 87.0 Respiratory Index 0.6 Hgb O2 Saturation 97.1 Mechanical Rate 14 FiO2 40.0 Tidal Volume 400 PEEP 5 Sodium Potassium Chloride Carbon Dioxide Anion Gap BUN Creatinine Est GFR ( Amer) Est GFR (Non-Af Amer) POC Glucose (mg/dL) 119 H 85 Random Glucose Calcium Phosphorus Magnesium Total Bilirubin AST ALT Alkaline Phosphatase Total Protein Albumin Globulin Albumin/Globulin Ratio 08/23/16 08/23/16 08/23/16 05:43 06:20 06:20 WBC 19.4 H RBC 3.31 L Hgb 8.3 L Hct 26.5 L MCV 80.0 L MCH 25.1 L MCHC 31.3 L RDW 17.7 H Plt Count 65 L MPV 11.8 H Neut % (Auto) 83.6 H Lymph % (Auto) 9.8 L [place] % (Auto) 5.6 Eos % (Auto) 0.8 Baso % (Auto) 0.2 Neut # 16.2 H Lymph # 1.9 [place] # 1.1 H Eos # 0.2 Baso # 0.0 Neutrophils % (Manual) 68 Band Neutrophils % 24 H* Lymphocytes % (Manual) 4 L Monocytes % (Manual) 4 Nucleated RBC % 1 H Platelet Estimate Decreased L Large Platelets Present Giant Platelets Present Hypochromasia (manual) Slight Poikilocytosis (manual Slight Anisocytosis (manual) Slight Ovalocytes Slight [place] Cells Slight Puncture Site pCO2 pO2 HCO3 ABG pH ABG Total CO2 ABG O2 Saturation ABG Base Excess ABG Hemoglobin ABG Carboxyhemoglobin POC ABG HHb (Measured) ABG Methemoglobin Dima Test A-a O2 Difference Respiratory Index Hgb O2 Saturation Mechanical Rate FiO2 Tidal Volume PEEP Sodium 150 H Potassium 3.8 Chloride 119 H Carbon Dioxide 13 L Anion Gap 22 H BUN 76 H Creatinine 5.4 H Est GFR ( Amer) 9 Est GFR (Non-Af Amer) 8 POC Glucose (mg/dL) 99 Random Glucose 85 Calcium 6.5 L Phosphorus 5.0 H Magnesium 1.9 Total Bilirubin 0.9 AST 1057 H ALT 676 H Alkaline Phosphatase 57 Total Protein 5.4 L Albumin 2.6 L Globulin 2.8 Albumin/Globulin Ratio 0.9 L Fingerstick Blood Sugar Results: 154 Review of Systems - Review of Systems Systems not reviewed;Unavailable: Intubated Assessment/Plan - Assessment and Plan (Free Text) Assessment: 76yo F. Unknown PMHx, p/w with v. fib cardiac arrest, s/p resuscitation with ROSC, s/p cardiac cath with non-obstructive cardiomyopathy (EF 20%). Now with MOSF Plan: Family at bedside. Case discussed, including worsening of condition and MOSF and they are in agreement with terminal extubation tomorrow after family sees pt today. They also requested that the pt be made DNR at this point. Worsening of condition, will continue current management No invasive procedures Will continue to monitor pt and provide any appropriate comfort measures. <Asim Call Last Filed: 08/23/16 14:22> CCU Objective - Vital Signs / Intake & Output Vital Signs (Last 4 hours): Vital Signs Temp Pulse Resp BP Pulse Ox 08/23/16 13:01 58 L 11 L 125/34 L 100 08/23/16 13:00 58 L 14 100 08/23/16 12:32 63 17 138/67 08/23/16 12:00 98.7 F 62 15 125/38 L 08/23/16 11:32 58 L 16 105/54 L 08/23/16 11:01 61 16 138/60 08/23/16 11:00 62 16 08/23/16 10:31 71 16 154/66 H Intake and Output (Last 8hrs): Intake & Output 08/22/16 08/23/16 08/23/16 22:59 06:59 14:59 Intake Total 1018 800 925 Output Total 102 160 120 Balance 916 640 805 Weight 155 lb 8 oz Intake: IV 18 Intake, IV Amount 1000 800 925 Right Jug TLC Distal 800 800 825 Right Jug TLC Medial 200 100 Output: Urine 102 160 120 Urethral (Wyman) 102 160 120 Other: # Bowel Movements 1 1 - Medications Active Medications: Active Medications Generic Name Dose Route Start Last Admin Trade Name Freq PRN Reason Stop Dose Admin Acetaminophen 650 mg 08/21/16 00:14 08/21/16 21:25 Tylenol 650mg/20.3ml Solution Ud NG 650 mg Q6 PRN Administration for temp.,101 and above Norepinephrine Bitartrate 8 mg 258 mls @ 7.74 mls/hr 08/21/16 19:44 08/22/16 18:54 / Sodium Chloride IV 0 mcg/min .Q24H PRN 0 mls/hr TITRATE PER MD ORDER Titration Protocol 4 MCG/MIN Sodium Chloride 1,000 mls @ 125 mls/hr 08/21/16 19:49 08/23/16 12:42 Sodium Chloride 0.9% IV Not Given .Q8H KELLI Levetiracetam 750 mg/ Sodium 107.5 mls @ 420 mls/hr 08/22/16 10:00 08/23/16 09:47 Chloride IVPB 420 mls/hr Q12H KELLI Administration Meropenem 500 mg/ Sodium 100 mls @ 100 mls/hr 08/22/16 10:00 08/23/16 09:47 Chloride IVPB 100 mls/hr Q12 KELLI Administration Insulin Aspart 0 unit 08/19/16 03:45 08/23/16 12:41 Novolog SC Not Given Q6 [facility] Protocol Metoprolol Tartrate 50 mg 08/20/16 18:00 08/23/16 09:51 Lopressor GT 50 mg BID KELLI Administration Pantoprazole Sodium 40 mg 08/21/16 10:00 08/23/16 09:51 Protonix Inj IVP 40 mg DAILY KELLI Administration - Patient Studies Lab Studies: Microbiology Studies 08/21/16 11:00 Blood Culture - Preliminary Blood NO GROWTH AFTER 48 HOURS 08/21/16 12:54 Gram Stain - Final Trachasp Sputum Culture - Final Staphylococcus Aureus 08/21/16 09:21 Urine Culture - Final Urine Escherichia Coli Lab Studies 08/23/16 08/23/16 08/23/16 Range/Units 11:26 06:20 06:20 WBC 19.4 H (4.8-10.8) K/uL RBC 3.31 L (3.80-5.20) Mil/uL Hgb 8.3 L (11.0-16.0) g/dL Hct 26.5 L (34.0-47.0) % MCV 80.0 L (81.0-99.0) fL MCH 25.1 L (27.0-31.0) pg MCHC 31.3 L (33.0-37.0) g/dL RDW 17.7 H (11.5-14.5) % Plt Count 65 L (130-400) K/uL MPV 11.8 H (7.2-11.7) fL Neut % (Auto) 83.6 H (50.0-75.0) % Lymph % (Auto) 9.8 L (20.0-40.0) % [place] % (Auto) 5.6 (0.0-10.0) % Eos % (Auto) 0.8 (0.0-4.0) % Baso % (Auto) 0.2 (0.0-2.0) % Neut # 16.2 H (1.8-7.0) K/uL Lymph # 1.9 (1.0-4.3) K/uL [place] # 1.1 H (0.0-0.8) K/uL Eos # 0.2 (0.0-0.7) K/uL Baso # 0.0 (0.0-0.2) K/uL Neutrophils % (Manual) 68 (50-75) % Band Neutrophils % 24 H* (0-2) % Lymphocytes % (Manual) 4 L (20-40) % Monocytes % (Manual) 4 (0-10) % Nucleated RBC % 1 H (0-0) % Platelet Estimate Decreased L (NORMAL) Large Platelets Present Giant Platelets Present Hypochromasia (manual) Slight Poikilocytosis (manual Slight Anisocytosis (manual) Slight Ovalocytes Slight [place] Cells Slight Puncture Site pCO2 (35-45) mm/Hg pO2 (80-100) mm/Hg HCO3 (21-28) mmol/L ABG pH (7.35-7.45) ABG Total CO2 (22-28) mmol/L ABG O2 Saturation (95-98) % ABG Base Excess (-2.0-3.0) mmol/L ABG Hemoglobin (11.7-17.4) g/dL ABG Carboxyhemoglobin (0.5-1.5) % POC ABG HHb (Measured) (0.0-5.0) % ABG Methemoglobin (0.0-3.0) % Dima Test A-a O2 Difference mm/Hg Respiratory Index Hgb O2 Saturation (95.0-98.0) % Mechanical Rate FiO2 % Tidal Volume PEEP Sodium 150 H (132-148) mmol/L Potassium 3.8 (3.6-5.2) mmol/L Chloride 119 H (98-107) mmol/L Carbon Dioxide 13 L (22-30) mmol/L Anion Gap 22 H (10-20) BUN 76 H (7-17) mg/dL Creatinine 5.4 H (0.7-1.2) MG/DL Est GFR ( Amer) 9 Est GFR (Non-Af Amer) 8 POC Glucose (mg/dL) 99 (65-110) mg/dL Random Glucose 85 (65-105) mg/dL Calcium 6.5 L (8.6-10.4) mg/dl Phosphorus 5.0 H (2.5-4.5) mg/dL Magnesium 1.9 (1.6-2.3) mg/dL Total Bilirubin 0.9 (0.2-1.3) mg/dL AST 1057 H (14-36) U/L ALT 676 H (9-52) U/L Alkaline Phosphatase 57 (38-126) U/L Total Protein 5.4 L (6.3-8.3) g/dL Albumin 2.6 L (3.5-5.0) g/dL Globulin 2.8 (2.2-3.9) gm/dL Albumin/Globulin Ratio 0.9 L (1.0-2.1) 08/23/16 08/23/16 08/23/16 Range/Units 05:43 04:25 00:07 WBC (4.8-10.8) K/uL RBC (3.80-5.20) Mil/uL Hgb (11.0-16.0) g/dL Hct (34.0-47.0) % MCV (81.0-99.0) fL MCH (27.0-31.0) pg MCHC (33.0-37.0) g/dL RDW (11.5-14.5) % Plt Count (130-400) K/uL MPV (7.2-11.7) fL Neut % (Auto) (50.0-75.0) % Lymph % (Auto) (20.0-40.0) % [place] % (Auto) (0.0-10.0) % Eos % (Auto) (0.0-4.0) % Baso % (Auto) (0.0-2.0) % Neut # (1.8-7.0) K/uL Lymph # (1.0-4.3) K/uL [place] # (0.0-0.8) K/uL Eos # (0.0-0.7) K/uL Baso # (0.0-0.2) K/uL Neutrophils % (Manual) (50-75) % Band Neutrophils % (0-2) % Lymphocytes % (Manual) (20-40) % Monocytes % (Manual) (0-10) % Nucleated RBC % (0-0) % Platelet Estimate (NORMAL) Large Platelets Giant Platelets Hypochromasia (manual) Poikilocytosis (manual Anisocytosis (manual) Ovalocytes [place] Cells Puncture Site Rr pCO2 32 L (35-45) mm/Hg pO2 158 H (80-100) mm/Hg HCO3 14.4 L (21-28) mmol/L ABG pH 7.22 L (7.35-7.45) ABG Total CO2 14.1 L (22-28) mmol/L ABG O2 Saturation 99.9 H (95-98) % ABG Base Excess -13.5 L (-2.0-3.0) mmol/L ABG Hemoglobin 8.3 L (11.7-17.4) g/dL ABG Carboxyhemoglobin 1.5 (0.5-1.5) % POC ABG HHb (Measured) 0.1 (0.0-5.0) % ABG Methemoglobin 1.3 (0.0-3.0) % Dima Test Pos A-a O2 Difference 87.0 mm/Hg Respiratory Index 0.6 Hgb O2 Saturation 97.1 (95.0-98.0) % Mechanical Rate 14 FiO2 40.0 % Tidal Volume 400 PEEP 5 Sodium (132-148) mmol/L Potassium (3.6-5.2) mmol/L Chloride (98-107) mmol/L Carbon Dioxide (22-30) mmol/L Anion Gap (10-20) BUN (7-17) mg/dL Creatinine (0.7-1.2) MG/DL Est GFR ( Amer) Est GFR (Non-Af Amer) POC Glucose (mg/dL) 99 85 (65-110) mg/dL Random Glucose (65-105) mg/dL Calcium (8.6-10.4) mg/dl Phosphorus (2.5-4.5) mg/dL Magnesium (1.6-2.3) mg/dL Total Bilirubin (0.2-1.3) mg/dL AST (14-36) U/L ALT (9-52) U/L Alkaline Phosphatase (38-126) U/L Total Protein (6.3-8.3) g/dL Albumin (3.5-5.0) g/dL Globulin (2.2-3.9) gm/dL Albumin/Globulin Ratio (1.0-2.1) 05/31/17 Range/Units 18:21 WBC (4.8-10.8) K/uL RBC (3.80-5.20) Mil/uL Hgb (11.0-16.0) g/dL Hct (34.0-47.0) % MCV (81.0-99.0) fL MCH (27.0-31.0) pg MCHC (33.0-37.0) g/dL RDW (11.5-14.5) % Plt Count (130-400) K/uL MPV (7.2-11.7) fL Neut % (Auto) (50.0-75.0) % Lymph % (Auto) (20.0-40.0) % [place] % (Auto) (0.0-10.0) % Eos % (Auto) (0.0-4.0) % Baso % (Auto) (0.0-2.0) % Neut # (1.8-7.0) K/uL Lymph # (1.0-4.3) K/uL [place] # (0.0-0.8) K/uL Eos # (0.0-0.7) K/uL Baso # (0.0-0.2) K/uL Neutrophils % (Manual) (50-75) % Band Neutrophils % (0-2) % Lymphocytes % (Manual) (20-40) % Monocytes % (Manual) (0-10) % Nucleated RBC % (0-0) % Platelet Estimate (NORMAL) Large Platelets Giant Platelets Hypochromasia (manual) Poikilocytosis (manual Anisocytosis (manual) Ovalocytes [place] Cells Puncture Site pCO2 (35-45) mm/Hg pO2 (80-100) mm/Hg HCO3 (21-28) mmol/L ABG pH (7.35-7.45) ABG Total CO2 (22-28) mmol/L ABG O2 Saturation (95-98) % ABG Base Excess (-2.0-3.0) mmol/L ABG Hemoglobin (11.7-17.4) g/dL ABG Carboxyhemoglobin (0.5-1.5) % POC ABG HHb (Measured) (0.0-5.0) % ABG Methemoglobin (0.0-3.0) % Dima Test A-a O2 Difference mm/Hg Respiratory Index Hgb O2 Saturation (95.0-98.0) % Mechanical Rate FiO2 % Tidal Volume PEEP Sodium (132-148) mmol/L Potassium (3.6-5.2) mmol/L Chloride (98-107) mmol/L Carbon Dioxide (22-30) mmol/L Anion Gap (10-20) BUN (7-17) mg/dL Creatinine (0.7-1.2) MG/DL Est GFR ( Amer) Est GFR (Non-Af Amer) POC Glucose (mg/dL) 119 H (65-110) mg/dL Random Glucose (65-105) mg/dL Calcium (8.6-10.4) mg/dl Phosphorus (2.5-4.5) mg/dL Magnesium (1.6-2.3) mg/dL Total Bilirubin (0.2-1.3) mg/dL AST (14-36) U/L ALT (9-52) U/L Alkaline Phosphatase (38-126) U/L Total Protein (6.3-8.3) g/dL Albumin (3.5-5.0) g/dL Globulin (2.2-3.9) gm/dL Albumin/Globulin Ratio (1.0-2.1) Laboratory Results - last 24 hr 08/22/16 08/23/16 08/23/16 18:21 00:07 04:25 WBC RBC Hgb Hct MCV MCH MCHC RDW Plt Count MPV Neut % (Auto) Lymph % (Auto) [place] % (Auto) Eos % (Auto) Baso % (Auto) Neut # Lymph # [place] # Eos # Baso # Neutrophils % (Manual) Band Neutrophils % Lymphocytes % (Manual) Monocytes % (Manual) Nucleated RBC % Platelet Estimate Large Platelets Giant Platelets Hypochromasia (manual) Poikilocytosis (manual Anisocytosis (manual) Ovalocytes [place] Cells Puncture Site Rr pCO2 32 L pO2 158 H HCO3 14.4 L ABG pH 7.22 L ABG Total CO2 14.1 L ABG O2 Saturation 99.9 H ABG Base Excess -13.5 L ABG Hemoglobin 8.3 L ABG Carboxyhemoglobin 1.5 POC ABG HHb (Measured) 0.1 ABG Methemoglobin 1.3 Dima Test Pos A-a O2 Difference 87.0 Respiratory Index 0.6 Hgb O2 Saturation 97.1 Mechanical Rate 14 FiO2 40.0 Tidal Volume 400 PEEP 5 Sodium Potassium Chloride Carbon Dioxide Anion Gap BUN Creatinine Est GFR ( Amer) Est GFR (Non-Af Amer) POC Glucose (mg/dL) 119 H 85 Random Glucose Calcium Phosphorus Magnesium Total Bilirubin AST ALT Alkaline Phosphatase Total Protein Albumin Globulin Albumin/Globulin Ratio 08/23/16 08/23/16 08/23/16 05:43 06:20 06:20 WBC 19.4 H RBC 3.31 L Hgb 8.3 L Hct 26.5 L MCV 80.0 L MCH 25.1 L MCHC 31.3 L RDW 17.7 H Plt Count 65 L MPV 11.8 H Neut % (Auto) 83.6 H Lymph % (Auto) 9.8 L [place] % (Auto) 5.6 Eos % (Auto) 0.8 Baso % (Auto) 0.2 Neut # 16.2 H Lymph # 1.9 [place] # 1.1 H Eos # 0.2 Baso # 0.0 Neutrophils % (Manual) 68 Band Neutrophils % 24 H* Lymphocytes % (Manual) 4 L Monocytes % (Manual) 4 Nucleated RBC % 1 H Platelet Estimate Decreased L Large Platelets Present Giant Platelets Present Hypochromasia (manual) Slight Poikilocytosis (manual Slight Anisocytosis (manual) Slight Ovalocytes Slight Armando Cells Slight Puncture Site pCO2 pO2 HCO3 ABG pH ABG Total CO2 ABG O2 Saturation ABG Base Excess ABG Hemoglobin ABG Carboxyhemoglobin POC ABG HHb (Measured) ABG Methemoglobin Dima Test A-a O2 Difference Respiratory Index Hgb O2 Saturation Mechanical Rate FiO2 Tidal Volume PEEP Sodium 150 H Potassium 3.8 Chloride 119 H Carbon Dioxide 13 L Anion Gap 22 H BUN 76 H Creatinine 5.4 H Est GFR ( Amer) 9 Est GFR (Non-Af Amer) 8 POC Glucose (mg/dL) 99 Random Glucose 85 Calcium 6.5 L Phosphorus 5.0 H Magnesium 1.9 Total Bilirubin 0.9 AST 1057 H ALT 676 H Alkaline Phosphatase 57 Total Protein 5.4 L Albumin 2.6 L Globulin 2.8 Albumin/Globulin Ratio 0.9 L 08/23/16 11:26 WBC RBC Hgb Hct MCV MCH MCHC RDW Plt Count MPV Neut % (Auto) Lymph % (Auto) [place] % (Auto) Eos % (Auto) Baso % (Auto) Neut # Lymph # [place] # Eos # Baso # Neutrophils % (Manual) Band Neutrophils % Lymphocytes % (Manual) Monocytes % (Manual) Nucleated RBC % Platelet Estimate Large Platelets Giant Platelets Hypochromasia (manual) Poikilocytosis (manual Anisocytosis (manual) Ovalocytes Armando Cells Puncture Site pCO2 pO2 HCO3 ABG pH ABG Total CO2 ABG O2 Saturation ABG Base Excess ABG Hemoglobin ABG Carboxyhemoglobin POC ABG HHb (Measured) ABG Methemoglobin Dima Test A-a O2 Difference Respiratory Index Hgb O2 Saturation Mechanical Rate FiO2 Tidal Volume PEEP Sodium Potassium Chloride Carbon Dioxide Anion Gap BUN Creatinine Est GFR ( Amer) Est GFR (Non-Af Amer) POC Glucose (mg/dL) 99 Random Glucose Calcium Phosphorus Magnesium Total Bilirubin AST ALT Alkaline Phosphatase Total Protein Albumin Globulin Albumin/Globulin Ratio Assessment/Plan (1) Cardiac arrest with ventricular fibrillation Current Visit: Yes Status: Acute Attending/Attestation - Attestation I have personally seen and examined this patient.: Yes I have fully participated in the care of the patient.: Yes I have reviewed all pertinent clinical information: Yes Notes (Text): 08/23/16 14:22 I have seen and examined the patient. Medical records, lab studies, and imaging were reviewed by me and a management plan was formulated on multidisciplinary rounds with resident Dr. Estrada. I agree with their above documented assessment and plan. Patient to be terminally extubated tomorrow. Critical Care Time 35 minutes. Multi-disciplinary rounds were performed with house staff, nursing, speech therapy, respiratory therapy, pharmacy and nutrition with integrated input from the primary team/attending and other consulting services. The documented time is cumulative and includes review of patient data/exams/labs/chart review and examination of the patient on rounds and throughout the day; time is exclusive of any procedures or teaching time.
--- NOTE | 2016-08-23 14:06 | PN ---
DATE: 08/23/2016 The patient is getting supportive care. Comatose, poor prognosis as per neurology. Nick Jacobson MD cc: [id number] TT: 08/23/2016 11:14:24 Confirmation # [id number] Dictation # [id number]
--- NOTE | 2016-08-23 17:08 | CP.PCM.PN ---
Subjective - Date & Time of Evaluation Date of Evaluation: 08/23/16 Time of Evaluation: 09:00 - Subjective Subjective: intubated blood + for ecoli on admission sputum + staph- await ID Objective - Vital Signs/Intake and Output Vital Signs (last 24 hours): Temp Pulse Resp BP Pulse Ox 98.9 F 63 13 153/39 H 100 08/23/16 16:00 08/23/16 16:31 08/23/16 16:31 08/23/16 16:31 08/23/16 16:31 Intake and Output: 08/23/16 08/23/16 06:59 18:59 Intake Total 1300 1300 Output Total 220 150 Balance 1080 1150 - Medications Medications: Current Medications Acetaminophen (Tylenol 650mg/20.3ml Solution Ud) 650 mg NG Q6 PRN PRN Reason: for temp.,101 and above Last Admin: 08/21/16 21:25 Dose: 650 mg Norepinephrine Bitartrate 8 mg (/ Sodium Chloride) 258 mls @ 7.74 mls/hr IV .Q24H PRN; Protocol; 4 MCG/MIN PRN Reason: TITRATE PER MD ORDER Last Titration: 08/22/16 18:54 Dose: 0 mcg/min, 0 mls/hr Sodium Chloride (Sodium Chloride 0.9%) 1,000 mls @ 125 mls/hr IV .Q8H [facility] Last Admin: 08/23/16 12:42 Dose: Not Given Levetiracetam 500 mg/ Sodium (Chloride) 105 mls @ 420 mls/hr IVPB Q12H [facility] Cefepime HCl 1 gm/ Sodium (Chloride) 50 mls @ 100 mls/hr IVPB Q24H [facility] Vancomycin HCl 1 gm/ Sodium (Chloride) 250 mls @ 166.7 mls/hr IVPB STAT STA Stop: 08/23/16 18:35 Insulin Aspart (Novolog) 0 unit SC Q6 [facility] PRN Reason: Protocol Last Admin: 08/23/16 12:41 Dose: Not Given Metoprolol Tartrate (Lopressor) 50 mg GT BID [facility] Last Admin: 08/23/16 09:51 Dose: 50 mg Pantoprazole Sodium (Protonix Inj) 40 mg IVP DAILY [facility] Last Admin: 08/23/16 09:51 Dose: 40 mg - Labs Labs: 08/23/16 06:20 08/23/16 06:20 PT 12.5 SECONDS (9.7-12.2) H 08/19/16 04:35 INR 1.1 08/19/16 04:35 APTT 133 SECONDS (21-34) H* 08/19/16 04:35 - Constitutional Appears: Confused, Cachectic, Chronically Ill - Head Exam Head Exam: NORMOCEPHALIC - Eye Exam Eye Exam: absent: Scleral icterus - ENT Exam ENT Exam: Mucous Membranes Dry - Neck Exam Neck Exam: absent: Lymphadenopathy - Respiratory Exam Respiratory Exam: Decreased Breath Sounds, Rhonchi - Cardiovascular Exam Cardiovascular Exam: REGULAR RHYTHM, +S1, +S2 - GI/Abdominal Exam GI & Abdominal Exam: Distended - Rectal Exam Rectal Exam: Deferred - Exam Exam: NORMAL INSPECTION Assessment and Plan (1) UTI (urinary tract infection) Status: Acute (2) UTI (urinary tract infection) Status: Acute (3) Bacteremia due to Escherichia coli Status: Acute (4) Bacteremia due to Escherichia coli Status: Acute (5) Cardiac arrest with ventricular fibrillation Status: Acute (6) HTN (hypertension) Status: Acute (7) Hypercholesterolemia Status: Acute
[2016-08-23] MEDS ORDERED: Cefepime 1 GM in Sodium Chloride 0.9% 100 ML IVPB SCH (18:00)
[2016-08-23] MEDS ORDERED: levETIRAcetam 500 MG in Sodium Chloride 0.9% 100 ML IVPB SCH (22:00)
[2016-08-24] MEDS: (Novolog) Insulin Aspart, Recombinant 100 u/ml 10 ml vial SC SCH ×2 (06:27)
[2016-08-24] MEDS: Sodium Chloride 0.9% 1,000 ML IV SCH (06:29)
[2016-08-24 06:43] VITALS: O2SAT 99
--- NOTE | 2016-08-24 07:31 | PN ---
DATE: 08/24/2016 NEUROLOGICAL PROBLEM: Anoxic encephalopathy, status post epilepsia partialis continua. PHYSICAL EXAMINATION: VITAL SIGNS: Blood pressure 112/52, mean arterial pressure of 65, respiratory rate 22, on vent. Pul se rate 65, sinus on monitoring, QT interval is prolonged. NEUROLOGIC: The patient is deeply comatose. Eyes are closed. Pupils asymmetric. Right pupil is sl ightly larger than the left side. No reaction to the light. No corneal reflex. No oculocephalic no chris. No gag reflex or lingual movement on manipulating the endotracheal tube. Flaccid quadriplegia. Extremities are cold and clammy, on cold blanket. No reflexes. Plantars are mute. to noxio us stimuli. The patient is no voluntary respiration on her own. She breathes only with ventilatory support. The patient is on pressors. In spite of pressors, mean arterial pressures are 65. The patient did not show any improvement in physiological response from day #1. PROGNOSIS: Extremely poor. Family discussion was made with her daughter. When family members all in, probably they will decide to terminal extubation to make her to go peace. Her intentions are validated because of irreversible damage to her central nervous system, which were aware by her family members at present. The patient's condition is also discussed with the edging catcher. We will follow the family wish for h er peace. Dima Santos MD cc: [id number] TT: 08/24/2016 07:31:12 Confirmation # [id number] Dictation # [id number]
[2016-08-24 08:10] VITALS: RESP 25
--- NOTE | 2016-08-24 09:05 | CP.PCM.PRO ---
Pronouncement of Note - Clinical Findings Physical Exam: No Response Verbal/Painful Stimuli, Absent Peripheral Pulses{ Carotid & Femoral}, Absent Heart & Breath Sounds, No Pupillary Light Reflex, No Corneal Reflex, Pupils Fixed & Dilated, Absence of Vital Signs - Pronouncement Time Time of Pronouncement of : 08:40 - Notifications Pronouncement Notifications: Family Notified Test And Turn Up Technician Notified: No - Autopsy Autopsy Requested: No - [place] [id number]
[2016-08-24 09:30] VITALS: BP 110/44; PULSE 59
[2016-08-24 12:06] VITALS: TEMP 98.4
--- NOTE | 2016-08-30 11:02 | DS ---
The patient admitted to the hospital with chief complaint of loss of consciousness. The patient was resuscitated and admitted to the hospital. CT of the head was negative. Cardiac catheterization, no acute event. The patient with ____ brain function, ____ support. The patient . DIAGNOSES: Cardiac arrest, ____ organic brain damage. Nick Jacobson MD cc: [id number] TT: 08/29/2016 11:25:27 nd 08/30/2016 10:01:29
== END 2016-08-24 08:40 | DRG 286 ==
LOC: C.ER 01:53 → EEVIPCON 02:07 → C.9I 02:07
PROVIDERS: ADMIT Internal Medicine Cardiovascular Disease; ATTEND Internal Medicine Pulmonary Disease
PROC: 5A12012 Performance of Cardiac Output, Single, Manual (ICD-10-PCS; principal; 2016-08-19)
PROC: 5A1955Z Respiratory Ventilation, Greater than 96 Consecutive Hours (ICD-10-PCS; 2016-08-19)
PROC: 4A023N7 Measurement of Cardiac Sampling and Pressure, Left Heart, Percutaneous Approach (ICD-10-PCS; 2016-08-19)
PROC: B2151ZZ Fluoroscopy of Left Heart using Low Osmolar Contrast (ICD-10-PCS; 2016-08-19)
PROC: 5A2204Z Restoration of Cardiac Rhythm, Single (ICD-10-PCS; 2016-08-19)
PROC: B2111ZZ Fluoroscopy of Multiple Coronary Arteries using Low Osmolar Contrast (ICD-10-PCS; 2016-08-19)
PROC: 6A4Z0ZZ Hypothermia, Single (ICD-10-PCS; 2016-08-19)
PROC: 6A550Z2 Pheresis of Platelets, Single (ICD-10-PCS; 2016-08-19)
DX: I49.01 Ventricular fibrillation (principal); A41.51 Sepsis due to Escherichia coli [E. coli]; G93.6 Cerebral edema; J96.00 Acute respiratory failure, unspecified whether with hypoxia or hypercapnia; R65.21 Severe sepsis with septic shock; I42.9 Cardiomyopathy, unspecified; R64 Cachexia; G82.50 Quadriplegia, unspecified; G93.1 Anoxic brain damage, not elsewhere classified; G40.109 Localization-related (focal) (partial) symptomatic epilepsy and epileptic syndromes with simple partial seizures, not intractable, without status epilepticus; N39.0 Urinary tract infection, site not specified; N17.9 Acute kidney failure, unspecified; I46.9 Cardiac arrest, cause unspecified; I48.91 Unspecified atrial fibrillation; E11.9 Type 2 diabetes mellitus without complications; I10 Essential (primary) hypertension; I25.10 Atherosclerotic heart disease of native coronary artery without angina pectoris; I65.1 Occlusion and stenosis of basilar artery; I44.7 Left bundle-branch block, unspecified; E78.00 Pure hypercholesterolemia, unspecified; B96.20 Unspecified Escherichia coli [E. coli] as the cause of diseases classified elsewhere; Z90.710 Acquired absence of both cervix and uterus; Z90.49 Acquired absence of other specified parts of digestive tract; Z86.73 Personal history of transient ischemic attack (TIA), and cerebral infarction without residual deficits; Z51.5 Encounter for palliative care